=== PATIENT | male | born 1945 | race Caucasian/White ===

== ENCOUNTER 2016-11-19 | Outpatient (CLI) | END 2016-11-19 12:14 | disposition critical access hospital (66) | CPT/HCPCS: A0425; A0427 ==

== ENCOUNTER 2016-11-19 12:26 | Observation (INO) | payer MEDICARE, OTHER ==
[2016-11-19] MEDS ORDERED: ASPIRIN CHEW 81 MG TABLET PO STA (12:35)
[2016-11-19] MEDS ORDERED: ASPIRIN CHEW 81 MG TABLET ONE (12:40)
[2016-11-19] MEDS ORDERED: ONDANSETRON 4 MG/2 ML VIAL IVP STA (13:38)
[2016-11-19] MEDS ORDERED: ONDANSETRON 4 MG/2 ML VIAL ONE (13:42)
[2016-11-19] MEDS ORDERED: HYDROcod/ACETAM 5/325 MG TABLET PO PRN (14:54)
[2016-11-19] MEDS ORDERED: SODIUM CHLORIDE FLUSH 0.9% 10 ML SYRINGE IVP PRN (14:54)
[2016-11-19] MEDS ORDERED: ONDANSETRON 4 MG/2 ML VIAL IVP PRN (14:54)
[2016-11-19] MEDS ORDERED: HYDROcod/ACETAM 10 MG/325 MG TABLET PO PRN (14:54)
[2016-11-19] MEDS ORDERED: ACETAMINOPHEN 325 MG TABLET PO PRN (14:54)
[2016-11-19] MEDS ORDERED: NITROGLYCERIN SL 0.4 MG TABLET SL PRN (15:41)
[2016-11-19] MEDS: INSULIN ASPART 300 UNIT/3 ML PEN SUBQ SCH ×2 (16:59→20:49)
[2016-11-19] MEDS: INSULIN 70/30 HUMAN 100 UNIT/1 ML 10 ML MDV SUBQ SCH (16:59)
[2016-11-19] MEDS: CARVEDILOL 12.5 MG TABLET PO SCH (20:49)
[2016-11-19] MEDS: cloNIDine 0.1 MG TABLET PO SCH (20:49)
[2016-11-19] MEDS: SODIUM CHLORIDE FLUSH 0.9% 10 ML SYRINGE IVP SCH (20:50)
[2016-11-19] MEDS ORDERED: ATORVASTATIN 40 MG TABLET PO SCH (21:00)
[2016-11-20] MEDS: INSULIN 70/30 HUMAN 100 UNIT/1 ML 10 ML MDV SUBQ SCH (08:57)
[2016-11-20] MEDS ORDERED: hydroCHLOROthiazide 25 MG TABLET PO SCH (09:00)
[2016-11-20] MEDS ORDERED: POLYETHYLENE GLYCOL 3350 17 GM PACKET PO SCH (09:00)
[2016-11-20] MEDS ORDERED: ASPIRIN EC 81 MG TABLET PO SCH (09:00)
[2016-11-20] MEDS ORDERED: WARFARIN 5 MG TABLET PO SCH (09:00)
[2016-11-20] MEDS ORDERED: LOSARTAN 50 MG TABLET PO SCH (09:00)
[2016-11-20] MEDS: INSULIN ASPART 300 UNIT/3 ML PEN SUBQ SCH ×2 (09:18→13:02)
[2016-11-20] MEDS: CARVEDILOL 12.5 MG TABLET PO SCH (09:19)
[2016-11-20] MEDS: cloNIDine 0.1 MG TABLET PO SCH (09:20)
[2016-11-20] MEDS: SODIUM CHLORIDE FLUSH 0.9% 10 ML SYRINGE IVP SCH (13:02)
== END 2016-11-20 13:49 | disposition home or self-care (01) ==
DX: R55 Syncope and collapse (principal); I25.10 Atherosclerotic heart disease of native coronary artery without angina pectoris; I10 Essential (primary) hypertension; G89.29 Other chronic pain; R42 Dizziness and giddiness; I95.9 Hypotension, unspecified; E11.42 Type 2 diabetes mellitus with diabetic polyneuropathy; I25.2 Old myocardial infarction; Z79.4 Long term (current) use of insulin; Z79.01 Long term (current) use of anticoagulants; Z79.82 Long term (current) use of aspirin; Z87.891 Personal history of nicotine dependence; Z86.79 Personal history of other diseases of the circulatory system
CPT/HCPCS: 36415; 71020; 80053; 81003; 83036; 83690; 83880; 84484; 85025; 85610; 85730; 87275; 87276; 93005; 93010; 93306; 96374; 99283; 99285; A9270; G0378; J1815

== ENCOUNTER 2016-12-30 07:50 | Outpatient (CLI) | payer MEDICARE, OTHER | END 2016-12-30 07:51 | disposition home or self-care (01) | DX: E11.9 Type 2 diabetes mellitus without complications (principal) ==

== ENCOUNTER 2017-02-22 08:00 | Outpatient (CLI) | payer MEDICARE, OTHER | END 2017-02-22 08:01 | disposition home or self-care (01) | DX: I10 Essential (primary) hypertension (principal); I45.10 Unspecified right bundle-branch block; I48.0 Paroxysmal atrial fibrillation; Z79.01 Long term (current) use of anticoagulants; I47.2 Ventricular tachycardia ==

== ENCOUNTER 2017-03-06 08:00 | Outpatient (CLI) | payer MEDICARE, OTHER | END 2017-03-06 23:59 | disposition home or self-care (01) | DX: I10 Essential (primary) hypertension (principal); I45.10 Unspecified right bundle-branch block; I48.0 Paroxysmal atrial fibrillation; Z79.01 Long term (current) use of anticoagulants; I47.2 Ventricular tachycardia ==

== ENCOUNTER 2017-08-19 15:38 | Outpatient (CLI) | payer MEDICARE ==
[2017-08-19 13:52] LABS: ALBUMIN/GLOBULIN RATIO 1.1 (1.0-2.2); BILIRUBIN,TOTAL 0.4 mg/dL (0.2-1.0); BUN - BLOOD UREA NITROGEN 42 mg/dL (6-20); CARBON DIOXIDE - CO2 27 mmol/L (21-32); CHLORIDE 105 mmol/L (101-111); CHOL/HDL RATIO 3.3 (<5.0); CHOLESTEROL 122 mg/dL; CREATININE 1.6 mg/dL (0.6-1.2); GFR - MDRD 43 (>89); GLUCOSE 118 mg/dL (70-100); HDL CHOLESTEROL 37 mg/dL; LDL/HDL RATIO 1.8 (<3.6); POTASSIUM 5.2 mmol/L (3.5-5.0); SODIUM 137 mmol/L (135-145); TOTAL PROTEIN 7.2 g/dL (6.7-8.2); TRIGLYCERIDES 84 mg/dL; VLDL CHOLESTEROL 17 mg/dL
[2017-08-19 13:55] LABS: HEMOGLOBIN A1C 0.6 g/dL
== END 2017-08-19 15:39 | disposition home or self-care (01) ==
LOC: LAB.WCP 15:38
PROVIDERS: ATTEND Family Medicine
DX: Z79.01 Long term (current) use of anticoagulants (principal); E11.9 Type 2 diabetes mellitus without complications; N40.1 Benign prostatic hyperplasia with lower urinary tract symptoms; I48.91 Unspecified atrial fibrillation; I10 Essential (primary) hypertension
CPT/HCPCS: 36415; 80053; 80061; 82043; 83036; 84153

== ENCOUNTER 2017-08-31 12:53 | Outpatient (CLI) | payer MEDICARE ==
[2017-08-31 12:59] LABS: CALCIUM 8.8 mg/dL (8.5-10.3); CREATININE 1.7 mg/dL (0.6-1.2); POTASSIUM 4.8 mmol/L (3.5-5.0)
== END 2017-08-31 12:54 | disposition home or self-care (01) ==
LOC: LAB.WCP 12:53
PROVIDERS: ATTEND Family Medicine
DX: N18.9 Chronic kidney disease, unspecified (principal); E11.9 Type 2 diabetes mellitus without complications; I10 Essential (primary) hypertension
CPT/HCPCS: 36415; 80048

== ENCOUNTER 2017-11-17 07:13 | Outpatient (CLI) | payer MEDICARE, OTHER ==
[2017-11-17 13:07] LABS: CALCIUM 8.7 mg/dL (8.5-10.3); CREATININE 1.5 mg/dL (0.6-1.2)
[2017-11-17 13:48] LABS: HB2 TOTAL 12.4 g/dL; HEMOGLOBIN A1C 0.6 g/dL; HEMOGLOBIN A1C % 6.6 % (4.6-6.2)
== END 2017-11-17 07:14 | disposition home or self-care (01) ==
LOC: LAB.WCP 07:13
PROVIDERS: ATTEND Family Medicine
DX: I12.9 Hypertensive chronic kidney disease with stage 1 through stage 4 chronic kidney disease, or unspecified chronic kidney disease (principal); N18.9 Chronic kidney disease, unspecified; I47.2 Ventricular tachycardia; E11.9 Type 2 diabetes mellitus without complications; I25.10 Atherosclerotic heart disease of native coronary artery without angina pectoris; I48.91 Unspecified atrial fibrillation
CPT/HCPCS: 36415; 80048; 83036; 83735

== ENCOUNTER 2017-12-25 11:50 | Emergency (ER) | payer MEDICARE, OTHER ==
--- NOTE | 2017-12-25 12:54 | XRAY Report ---
EXAM: RIGHT WRIST RADIOGRAPHY EXAM DATE: 12/25/2017 12:20 PM. CLINICAL HISTORY: Right lateral wrist pain one day after fall. COMPARISON: None. TECHNIQUE: 4 views. FINDINGS: Bones: Normal. No fractures or bone lesions. Joints: Severe degenerative changes at the first carpometacarpal joint. Soft Tissues: Normal. No soft tissue swelling. IMPRESSION: 1. No fracture. 2. Severe degenerative changes at the first carpal metacarpal joint. [facility] Referring Provider Line: [phone] SITE ID: [id number]
--- NOTE | 2017-12-25 12:54 | XRAY Preliminary Report ---
Exam: XR WRIST 4 VIEW RT IMPRESSION: 1. No fracture. 2. Severe degenerative changes at the first carpal metacarpal joint. [facility] SITE ID: [id number]
--- NOTE | 2017-12-25 13:39 | ED Physician Documentation ---
PD HPI UPPER EXT INJURY - Stated complaint Stated Complaint: GLF/HAND&WRIST INJ - Chief complaint Chief Complaint: Ext Problem - History obtained from History obtained from: Patient - History of Present Illness Location: Right, Wrist, Hand Type of injury: Fall Where injury occurred: Home Timing - onset: Last night Timing - details: Abrupt onset, Still present Improved by: Rest Worsened by: Moving, Palpating Associated symptoms: Swelling (dorsal right wrist). 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.) Recently seen: Not recently seen Review of Systems Skin: denies: Abrasion (s), Laceration (s) Neurologic: denies: Focal weakness, Numbness, Confused, Altered mental status, Head injury PD PAST MEDICAL HISTORY - Past Medical History Cardiovascular: Hypertension, Atrial fibrillation Respiratory: Asthma, COPD, Emphysema Neuro: Peripheral neuropathy Endocrine/Autoimmune: Type 2 diabetes GI: None : None Psych: Depression, Anxiety Musculoskeletal: Osteoarthritis Derm: None - Past Surgical History Past Surgical History: No General: Cholecystectomy Ortho: Knee replacement, Shoulder arthroplasty Cardiovascular: Coronary stent - Present Medications Home Medications: Ambulatory Orders Medication Instructions Recorded Confirmed Hydrochlorothiazide 25 mg PO DAILY 01/18/14 11/19/16 Losartan [Cozaar] 100 mg PO DAILY 01/18/14 11/19/16 Prazosin HCl 5 mg PO DAILY 01/18/14 11/19/16 cloNIDine [Catapres] 0.2 mg PO BID 01/18/14 11/19/16 Aspirin [Aspirin EC] 81 mg PO DAILY 11/19/16 11/19/16 Atorvastatin Calcium 40 mg PO QPM 11/19/16 11/19/16 Carvedilol [Coreg] 12.5 mg PO BID 11/19/16 11/19/16 Insulin NPH Hum/Reg Insulin Hm 22 units SUBQ BIDAC 11/19/16 11/19/16 [Humulin 70/30 Kwikpen] Nitroglycerin [Nitrostat] 0.4 mg PO Q5M PRN 11/19/16 11/19/16 Warfarin Sodium 5 mg PO DAILY 11/19/16 11/19/16 HYDROcod/ACETAM 5/325 [[place] 5/325] 1 tab PO Q6H PRN #15 tablet 12/25/17 - Allergies Allergies/Adverse Reactions: Allergies Allergy/AdvReac Type Severity Reaction Status Date / Time codeine Allergy Intermediate Itching Verified 11/19/16 12:33 - Social History Does the pt smoke?: No Smoking Status: Never smoker Does the pt drink ETOH?: No Does the pt have substance abuse?: No - Immunizations Immunizations are current?: Yes PD ED PE NORMAL - Vitals Vital signs reviewed: Yes - General General: Alert and oriented X 3, No acute distress, Well developed/nourished - HEENT HEENT: Atraumatic - Neck Neck: Supple, no meningeal sign, No bony TTP - Cardiac Cardiac: RRR, No murmur - Respiratory Respiratory: Clear bilaterally, Other (no chestwall tenderness) - Abdomen Abdomen: Soft, Non tender - Back Back: No CVA TTP - Derm Derm: Normal color, Warm and dry - Extremities Extremities: No deformity. No: Normal ROM s pain (right wrist tender dorsally. Not focally tender in snuffbox. Base of thumb with some arthritic changes. No acute deformity. Good color and cap refill in fingers. ) - Neuro Neuro: Alert and oriented X 3, No motor deficit, No sensory deficit Results - Vitals Vitals: Oxygen O2 Source Room air - Labs Labs: Laboratory Tests 12/25/17 14:15 Whole Blood INR 3.1 H - Rads (name of study) wrist right Radiology: Prelim report reviewed (arthritic changes base of thumb and navicular. No noted fractures. ), EMP read contemporaneously PD MEDICAL DECISION MAKING - ED course Complexity details: considered differential (not focally tender at snuffbox but more dorsal wrist. However has irregularity on xray in navicular (looks arthritis). Will give splint with thumb spice as well. Recheck with PMD. ), d/w patient Departure - Departure Disposition: 01 Home, Self Care Clinical Impression: Accidental fall Qualifiers: Encounter type: initial encounter Qualified Code(s): W19.XXXA - Unspecified fall, initial encounter Wrist sprain Qualifiers: Encounter type: initial encounter Laterality: right Qualified Code(s): S63.501A - Unspecified sprain of right wrist, initial encounter Condition: Stable Record reviewed to determine appropriate education?: Yes Instructions: ED Splint Care Velcro, ED Sprain Wrist Follow-Up: Juan Jose Campuzano MD [Primary Care Provider] - Johan Melchor MD [Provider Admit Priv/Credential] - Prescriptions: HYDROcod/ACETAM 5/325 [[place] 5/325] 1 tab PO Q6H PRN #15 tablet PRN Reason: Pain Comments: Use a wrist splint when needed for comfort. He will likely need this for a week or so. Ice elevate and rest your wrist often. Use Tylenol if needed for mild pain. Add hydrocodone if needed for worse pain. Continue your other usual medications. Follow-up with your primary care or orthopedics if not better over about a week Discharge Date/Time: 12/25/17 14:37
[2017-12-25] MEDS ORDERED: HYDROcod/ACETAM 5/325 MG TABLET PO STA (13:59)
[2017-12-25 14:38] VITALS: BP 137/66
== END 2017-12-25 14:37 | disposition home or self-care (01) ==
LOC: ED 11:50
DX: S63.501A Unspecified sprain of right wrist, initial encounter (principal); W18.39XA Other fall on same level, initial encounter; Y92.019 Unspecified place in single-family (private) house as the place of occurrence of the external cause; I10 Essential (primary) hypertension; I48.91 Unspecified atrial fibrillation; J44.9 Chronic obstructive pulmonary disease, unspecified; E11.42 Type 2 diabetes mellitus with diabetic polyneuropathy; Z79.4 Long term (current) use of insulin; M19.90 Unspecified osteoarthritis, unspecified site; Z79.82 Long term (current) use of aspirin
CPT/HCPCS: 73110; 85610; 99283; A9270

== ENCOUNTER 2018-02-16 08:00 | Outpatient (CLI) | payer MEDICARE, OTHER ==
[2018-02-16 12:40] LABS: CALCIUM 8.9 mg/dL (8.5-10.3); CREATININE 1.5 mg/dL (0.6-1.2)
[2018-02-16 13:18] LABS: HB2 TOTAL 12.1 g/dL; HEMOGLOBIN A1C 0.54 g/dL; HEMOGLOBIN A1C % 6.2 % (4.6-6.2)
== END 2018-02-16 08:01 | disposition home or self-care (01) ==
LOC: LAB.WCP 08:00
PROVIDERS: ATTEND Family Medicine
DX: M51.36 Other intervertebral disc degeneration, lumbar region (principal); E11.9 Type 2 diabetes mellitus without complications; J06.9 Acute upper respiratory infection, unspecified; I10 Essential (primary) hypertension; I25.10 Atherosclerotic heart disease of native coronary artery without angina pectoris
CPT/HCPCS: 36415; 80048; 83036

== ENCOUNTER 2018-08-25 07:27 | Outpatient (CLI) | payer MEDICARE, OTHER ==
[2018-08-25 14:40] LABS: BASOPHILS % (AUTO) 0.4 %; EOSINOPHILS # (AUTO) 0.3 10^3/uL (0.0-0.7); EOSINOPHILS % (AUTO) 4.4 %; HGB - HEMOGLOBIN 11.7 g/dL (14.0-18.0); LYMPHOCYTES # (AUTO) 1.8 10^3/uL (1.5-3.5); LYMPHOCYTES % (AUTO) 24.8 %; MEAN CORPUSCULAR HEMOGLOBIN 30.1 pg (27.0-31.0); MEAN CORPUSCULAR HGB CONC 33.9 g/dL (32.0-36.0); MEAN CORPUSCULAR VOLUME 88.8 fL (80.0-94.0); MEAN PLATELET VOLUME 9.3 fL (7.4-11.4); MONOCYTES # (AUTO) 0.7 10^3/uL (0.0-1.0); MONOCYTES % (AUTO) 9.6 %; NEUTROPHILS # (AUTO) 4.4 10^3/uL (1.5-6.6); NEUTROPHILS % (AUTO) 60.8 %; PLT - PLATELET COUNT 194 10^3/uL (130-450); RED BLOOD COUNT 3.89 10^6/uL (4.70-6.10); WHITE BLOOD COUNT 7.2 x10^3/uL (4.8-10.8)
[2018-08-25 14:44] LABS: ALBUMIN 3.5 g/dL (3.2-5.5); ALKALINE PHOSPHATASE 66 IU/L (42-121); ALT ALANINE AMINOTRANSFERASE 18 IU/L (10-60); AST ASPARTATE AMINOTRANSFERASE 22 IU/L (10-42); BILIRUBIN,TOTAL 0.2 mg/dL (0.2-1.0); BUN - BLOOD UREA NITROGEN 29 mg/dL (6-20); CALCIUM 8.9 mg/dL (8.5-10.3); CARBON DIOXIDE - CO2 25 mmol/L (21-32); CHLORIDE 105 mmol/L (101-111); CHOL/HDL RATIO 2.8 (<5.0); CHOLESTEROL 102 mg/dL; CREATININE 1.4 mg/dL (0.6-1.2); GFR - MDRD 50 (>89); GLUCOSE 96 mg/dL (70-100); HDL CHOLESTEROL 37 mg/dL; LDL CHOLESTEROL,CALCULATED 52 mg/dL; LDL/HDL RATIO 1.4 (<3.6); SODIUM 138 mmol/L (135-145); VLDL CHOLESTEROL 13 mg/dL
[2018-08-25 16:21] LABS: HB2 TOTAL 12.1 g/dL; HEMOGLOBIN A1C 0.53 g/dL; HEMOGLOBIN A1C % 6.2 % (4.6-6.2)
== END 2018-08-25 07:28 | disposition home or self-care (01) ==
LOC: LAB.WCP 07:27
PROVIDERS: ATTEND Family Medicine
DX: I12.9 Hypertensive chronic kidney disease with stage 1 through stage 4 chronic kidney disease, or unspecified chronic kidney disease (principal); E11.22 Type 2 diabetes mellitus with diabetic chronic kidney disease; N18.9 Chronic kidney disease, unspecified; E78.5 Hyperlipidemia, unspecified
CPT/HCPCS: 36415; 80053; 80061; 83036; 83721; 85025

== ENCOUNTER 2018-09-01 13:56 | Outpatient (CLI) | payer MEDICARE, OTHER ==
[2018-09-01 19:03] LABS: % IRON SATURATION 16 % (20-50); IRON 43 ug/dL (45-182); TOTAL IRON BINDING CAPACITY 272 ug/dL (250-450); TRANSFERRIN 194 mg/dL (180-329)
== END 2018-09-01 13:57 | disposition home or self-care (01) ==
LOC: LAB.WCP 13:56
PROVIDERS: ATTEND Family Medicine
DX: D50.9 Iron deficiency anemia, unspecified (principal)
CPT/HCPCS: 36415; 82728; 83540; 84466

== ENCOUNTER 2018-12-07 08:00 | Outpatient (CLI) | payer MEDICARE, OTHER ==
[2018-12-07 13:57] LABS: BASOPHILS % (AUTO) 0.7 %; EOSINOPHILS # (AUTO) 0.2 10^3/uL (0.0-0.7); EOSINOPHILS % (AUTO) 3.2 %; HGB - HEMOGLOBIN 11.9 g/dL (14.0-18.0); LYMPHOCYTES # (AUTO) 1.6 10^3/uL (1.5-3.5); LYMPHOCYTES % (AUTO) 25.3 %; MEAN CORPUSCULAR HEMOGLOBIN 29.4 pg (27.0-31.0); MEAN CORPUSCULAR HGB CONC 33.7 g/dL (32.0-36.0); MEAN CORPUSCULAR VOLUME 87.3 fL (80.0-94.0); MEAN PLATELET VOLUME 9.3 fL (7.4-11.4); MONOCYTES # (AUTO) 0.5 10^3/uL (0.0-1.0); MONOCYTES % (AUTO) 7.8 %; PLT - PLATELET COUNT 215 10^3/uL (130-450); RED BLOOD COUNT 4.06 10^6/uL (4.70-6.10); RED CELL DISTRIBUTION WIDTH 14.8 % (12.0-15.0); WHITE BLOOD COUNT 6.4 x10^3/uL (4.8-10.8)
[2018-12-07 16:41] LABS: ALBUMIN 3.6 g/dL (3.2-5.5); ALBUMIN/GLOBULIN RATIO 1.1 (1.0-2.2); ALKALINE PHOSPHATASE 79 IU/L (42-121); ALT ALANINE AMINOTRANSFERASE 22 IU/L (10-60); AST ASPARTATE AMINOTRANSFERASE 25 IU/L (10-42); BILIRUBIN,TOTAL 0.2 mg/dL (0.2-1.0); BUN - BLOOD UREA NITROGEN 37 mg/dL (6-20); CALCIUM 8.9 mg/dL (8.5-10.3); CARBON DIOXIDE - CO2 24 mmol/L (21-32); CHLORIDE 104 mmol/L (101-111); CHOLESTEROL 105 mg/dL; CREATININE 1.3 mg/dL (0.6-1.2); GFR - MDRD 54 (>89); GLUCOSE 139 mg/dL (70-100); SODIUM 135 mmol/L (135-145); VLDL CHOLESTEROL 14 mg/dL
[2018-12-07 17:12] LABS: CHOL/HDL RATIO 2.8 (<5.0); HDL CHOLESTEROL 37 mg/dL; LDL CHOLESTEROL,CALCULATED 54 mg/dL; LDL/HDL RATIO 1.5 (<3.6)
[2018-12-07 19:57] LABS: HB2 TOTAL 12.3 g/dL; HEMOGLOBIN A1C 0.54 g/dL; HEMOGLOBIN A1C % 6.2 % (4.6-6.2)
== END 2018-12-07 23:59 | disposition home or self-care (01) ==
LOC: LAB.WCP 08:00
PROVIDERS: ATTEND Family Medicine
DX: D50.9 Iron deficiency anemia, unspecified (principal); E11.22 Type 2 diabetes mellitus with diabetic chronic kidney disease; I12.9 Hypertensive chronic kidney disease with stage 1 through stage 4 chronic kidney disease, or unspecified chronic kidney disease; N18.9 Chronic kidney disease, unspecified; E26.9 Hyperaldosteronism, unspecified
CPT/HCPCS: 36415; 80053; 80061; 83036; 83721; 84443; 85025

== ENCOUNTER 2019-05-01 07:21 | Outpatient (CLI) | payer MEDICARE, OTHER ==
[2019-05-01 12:28] LABS: BASOPHILS % (AUTO) 0.3 %; EOSINOPHILS # (AUTO) 0.5 10^3/uL (0.0-0.7); EOSINOPHILS % (AUTO) 7.9 %; LYMPHOCYTES # (AUTO) 2.1 10^3/uL (1.5-3.5); LYMPHOCYTES % (AUTO) 32.8 %; MEAN CORPUSCULAR HEMOGLOBIN 27.6 pg (27.0-31.0); MEAN PLATELET VOLUME 11.3 fL (7.4-11.4); MONOCYTES # (AUTO) 0.5 10^3/uL (0.0-1.0); MONOCYTES % (AUTO) 8.4 %; NEUTROPHILS # (AUTO) 3.2 10^3/uL (1.5-6.6); NEUTROPHILS % (AUTO) 50.1 %; PLT - PLATELET COUNT 197 10^3/uL (130-450); RED BLOOD COUNT 3.62 10^6/uL (4.70-6.10); WHITE BLOOD COUNT 6.3 x10^3/uL (4.8-10.8)
[2019-05-01 12:43] LABS: ALBUMIN 3.6 g/dL (3.2-5.5); BILIRUBIN,TOTAL 0.6 mg/dL (0.2-1.0); CALCIUM 8.8 mg/dL (8.5-10.3); CREATININE 1.4 mg/dL (0.6-1.2); TOTAL PROTEIN 7.1 g/dL (6.7-8.2)
[2019-05-01 12:47] LABS: CREATININE,URINE 125.5 mg/dL
[2019-05-01 12:50] LABS: HB2 TOTAL 10.4 g/dL; HEMOGLOBIN A1C 0.46 g/dL; HEMOGLOBIN A1C % 6.2 % (4.6-6.2)
[2019-05-01 12:57] LABS: MICROALBUMIN,URINE < 0.3 mg/dL (0-300.0)
== END 2019-05-01 07:22 | disposition home or self-care (01) ==
LOC: LAB.WCP 07:21
PROVIDERS: ATTEND Family Medicine
DX: I25.10 Atherosclerotic heart disease of native coronary artery without angina pectoris (principal); I48.91 Unspecified atrial fibrillation; E11.59 Type 2 diabetes mellitus with other circulatory complications; M17.12 Unilateral primary osteoarthritis, left knee
CPT/HCPCS: 36415; 80053; 82043; 82570; 83036; 85025

== ENCOUNTER 2019-06-01 08:00 | Outpatient (CLI) | payer MEDICARE, OTHER | END 2019-06-01 08:01 | disposition home or self-care (01) | LOC: LAB.WCP 08:00 | PROVIDERS: ATTEND Family Medicine | DX: I48.91 Unspecified atrial fibrillation (principal); Z79.01 Long term (current) use of anticoagulants; Z53.9 Procedure and treatment not carried out, unspecified reason ==

== ENCOUNTER 2019-07-02 08:00 | Outpatient (CLI) | payer MEDICARE, OTHER | END 2019-07-02 23:59 | disposition home or self-care (01) | LOC: LAB.WCP 08:00 | PROVIDERS: ATTEND Family Medicine | DX: I48.91 Unspecified atrial fibrillation (principal); Z79.01 Long term (current) use of anticoagulants ==

== ENCOUNTER 2019-08-27 08:00 | Outpatient (CLI) | payer MEDICARE, OTHER | END 2019-08-27 23:59 | disposition home or self-care (01) | LOC: LAB.WCP 08:00 | PROVIDERS: ATTEND Physician Assistant | DX: Z79.01 Long term (current) use of anticoagulants (principal); I48.91 Unspecified atrial fibrillation ==

== ENCOUNTER 2019-10-05 08:00 | Outpatient (CLI) | payer MEDICARE, OTHER | END 2019-10-05 23:59 | disposition home or self-care (01) | LOC: LAB.WCP 08:00 | PROVIDERS: ATTEND Family Medicine | DX: Z79.01 Long term (current) use of anticoagulants (principal); I48.91 Unspecified atrial fibrillation ==

== ENCOUNTER 2019-10-25 07:30 | Outpatient (CLI) | payer MEDICARE, OTHER ==
[2019-10-25 12:59] LABS: BASOPHILS % (AUTO) 0.3 %; EOSINOPHILS # (AUTO) 0.4 10^3/uL (0.0-0.7); EOSINOPHILS % (AUTO) 5.8 %; HGB - HEMOGLOBIN 11.4 g/dL (14.0-18.0); LYMPHOCYTES # (AUTO) 1.6 10^3/uL (1.5-3.5); LYMPHOCYTES % (AUTO) 24.4 %; MEAN CORPUSCULAR HEMOGLOBIN 28.4 pg (27.0-31.0); MEAN CORPUSCULAR HGB CONC 30.8 g/dL (32.0-36.0); MEAN CORPUSCULAR VOLUME 92.3 fL (80.0-94.0); MEAN PLATELET VOLUME 10.9 fL (7.4-11.4); MONOCYTES # (AUTO) 0.5 10^3/uL (0.0-1.0); MONOCYTES % (AUTO) 8.5 %; NEUTROPHILS # (AUTO) 3.8 10^3/uL (1.5-6.6); NEUTROPHILS % (AUTO) 60.7 %; PLT - PLATELET COUNT 223 10^3/uL (130-450); RED BLOOD COUNT 4.01 10^6/uL (4.70-6.10); RED CELL DISTRIBUTION WIDTH 13.9 % (12.0-15.0); WHITE BLOOD COUNT 6.3 x10^3/uL (4.8-10.8)
[2019-10-25 13:19] LABS: ALBUMIN 3.8 g/dL (3.2-5.5); ALBUMIN/GLOBULIN RATIO 1.1 (1.0-2.2); BILIRUBIN,TOTAL 0.7 mg/dL (0.2-1.0); CALCIUM 9.2 mg/dL (8.5-10.3); CREATININE 1.6 mg/dL (0.6-1.2); TOTAL PROTEIN 7.4 g/dL (6.7-8.2)
[2019-10-25 13:50] LABS: HB2 TOTAL 11.3 g/dL; HEMOGLOBIN A1C 0.56 g/dL; HEMOGLOBIN A1C % 6.7 % (4.6-6.2)
[2019-10-25 19:22] LABS: CREATININE,URINE 229.1 mg/dL; MICROALBUM/CREATININE RATIO,UR 2.2 ug/mg (<30.0); MICROALBUMIN,URINE 0.5 mg/dL (0-300.0)
== END 2019-10-25 23:59 | disposition home or self-care (01) ==
LOC: LAB.WCP 07:30
PROVIDERS: ATTEND Family Medicine
DX: I25.10 Atherosclerotic heart disease of native coronary artery without angina pectoris (principal); I48.91 Unspecified atrial fibrillation; E11.9 Type 2 diabetes mellitus without complications
CPT/HCPCS: 36415; 80053; 82043; 82570; 83036; 84443; 85025

== ENCOUNTER 2019-10-31 08:00 | Outpatient (CLI) | payer MEDICARE, OTHER | END 2019-10-31 23:59 | disposition home or self-care (01) | LOC: LAB.WCP 08:00 | PROVIDERS: ATTEND Family Medicine | DX: Z79.01 Long term (current) use of anticoagulants (principal); I48.91 Unspecified atrial fibrillation ==

== ENCOUNTER 2019-11-23 08:00 | Outpatient (CLI) | payer MEDICARE, OTHER ==
[2019-11-23 19:04] LABS: BASOPHILS % (AUTO) 0.4 %; EOSINOPHILS # (AUTO) 0.3 10^3/uL (0.0-0.7); EOSINOPHILS % (AUTO) 5.2 %; HGB - HEMOGLOBIN 11.1 g/dL (14.0-18.0); LYMPHOCYTES # (AUTO) 1.5 10^3/uL (1.5-3.5); LYMPHOCYTES % (AUTO) 29.5 %; MEAN CORPUSCULAR HEMOGLOBIN 28.9 pg (27.0-31.0); MEAN CORPUSCULAR HGB CONC 31.4 g/dL (32.0-36.0); MEAN CORPUSCULAR VOLUME 92.2 fL (80.0-94.0); MEAN PLATELET VOLUME 11.3 fL (7.4-11.4); MONOCYTES # (AUTO) 0.5 10^3/uL (0.0-1.0); MONOCYTES % (AUTO) 10.2 %; NEUTROPHILS # (AUTO) 2.7 10^3/uL (1.5-6.6); NEUTROPHILS % (AUTO) 54.5 %; PLT - PLATELET COUNT 212 10^3/uL (130-450); RED BLOOD COUNT 3.84 10^6/uL (4.70-6.10); RED CELL DISTRIBUTION WIDTH 13.9 % (12.0-15.0)
[2019-11-23 19:39] LABS: CRP - C-REACTIVE PROTEIN < 1.0 mg/dL (0-1.0); URIC ACID 6.2 mg/dL (2.6-7.2)
[2019-11-23 20:06] LABS: RHEUMATOID FACTOR NEGATIVE (Negative)
[2019-11-27 10:44] LABS: ANA SCREEN NEGATIVE (NEGATIVE)
== END 2019-11-23 23:59 ==
LOC: LAB.WC 08:00
PROVIDERS: ATTEND Family Medicine
DX: M19.041 Primary osteoarthritis, right hand (principal); M19.042 Primary osteoarthritis, left hand
CPT/HCPCS: 36415; 84550; 85025; 85651; 86038; 86140; 86200; 86430

== ENCOUNTER 2019-11-23 10:56 | Outpatient (CLI) | payer MEDICARE, OTHER ==
--- NOTE | 2019-11-23 13:38 | XRAY Report ---
Reason: BILATERAL HAND ARTHRITIS Procedure Date: 11/23/2019 Accession Number: [id number] / [id number] Procedure: WCP - Hand 2 View BILAT CPT Code: Final Report FULL RESULT: EXAMS: 1. Right Hand Radiography 2. Left Hand Radiography EXAM DATE: 11/23/2019 10:56 AM. CLINICAL HISTORY: BILATERAL HAND ARTHRITIS. COMPARISON: WRIST 4 VIEW RT 12/25/2017 12:09 PM. TECHNIQUE: 2 views each hand. FINDINGS: Right: Bones: Normal. No fractures or bone lesions. Joints: First metacarpal carpal osteophyte, joint space narrowing, subchondral sclerosis, subchondral cystic changes. First MCP osteophyte, disk space narrowing. First interphalangeal joint osteophyte, joint space narrowing. Second MCP appears subluxed with bony overgrowth of the second metacarpal head. Third metacarpophalangeal joint osteophyte, joint space narrowing. Soft Tissues: Normal. No soft tissue swelling. Left: Bones: Lucency and third distal phalanx tuft may be from previous trauma. No fractures or bone lesions. Joints: Severe degenerative changes of first metacarpocarpal joint with joint space loss osteophyte, subchondral sclerosis, subchondral cysts, loose bodies. Degenerative changes first MCP with osteophyte, joint space narrowing. First interphalangeal osteophyte, joint space narrowing. Second MCP joint space narrowing, bony overgrowth, subluxation. Third MCP osteophyte, joint space narrowing. Fourth PIP osteophyte. Soft Tissues: Normal. No soft tissue swelling. IMPRESSION: Moderate to severe osteoarthritic changes bilaterally detailed above [facility]
== END 2019-11-23 23:59 | disposition home or self-care (01) ==
LOC: DI.WCP 10:56
PROVIDERS: ATTEND Family Medicine
DX: M18.0 Bilateral primary osteoarthritis of first carpometacarpal joints (principal); M19.041 Primary osteoarthritis, right hand; M19.042 Primary osteoarthritis, left hand

== ENCOUNTER 2019-11-29 08:00 | Outpatient (CLI) | payer MEDICARE, OTHER | END 2019-11-29 23:59 | disposition home or self-care (01) | LOC: LAB.WCP 08:00 | PROVIDERS: ATTEND Family Medicine | DX: Z79.01 Long term (current) use of anticoagulants (principal); I48.91 Unspecified atrial fibrillation ==

== ENCOUNTER 2019-12-27 08:00 | Outpatient (CLI) | payer MEDICARE, OTHER | END 2019-12-27 23:59 | disposition home or self-care (01) | LOC: LAB.WCP 08:00 | PROVIDERS: ATTEND Family Medicine | DX: I48.91 Unspecified atrial fibrillation (principal); Z79.01 Long term (current) use of anticoagulants ==

== ENCOUNTER 2020-01-24 08:00 | Outpatient (CLI) | payer MEDICARE, OTHER | END 2020-01-24 23:59 | disposition home or self-care (01) | LOC: LAB.WCP 08:00 | PROVIDERS: ATTEND Family Medicine | DX: I48.91 Unspecified atrial fibrillation (principal); Z79.01 Long term (current) use of anticoagulants ==

== ENCOUNTER 2020-02-12 08:00 | Outpatient (CLI) | payer MEDICARE, OTHER | END 2020-02-12 23:59 | disposition home or self-care (01) | LOC: LAB.WCP 08:00 | PROVIDERS: ATTEND Family Medicine | DX: I48.91 Unspecified atrial fibrillation (principal) ==

== ENCOUNTER 2020-03-18 08:00 | Outpatient (CLI) | payer MEDICARE, OTHER | END 2020-03-18 23:59 | disposition home or self-care (01) | LOC: LAB.WCP 08:00 | PROVIDERS: ATTEND Family Medicine | DX: I48.91 Unspecified atrial fibrillation (principal); Z79.01 Long term (current) use of anticoagulants ==

== ENCOUNTER 2020-04-01 08:00 | Outpatient (CLI) | payer MEDICARE, OTHER | END 2020-04-01 23:59 | disposition home or self-care (01) | LOC: LAB.WCP 08:00 | PROVIDERS: ATTEND Family Medicine | DX: I48.91 Unspecified atrial fibrillation (principal); Z79.01 Long term (current) use of anticoagulants ==

== ENCOUNTER 2020-04-22 08:00 | Outpatient (CLI) | payer MEDICARE, OTHER | END 2020-04-22 23:59 | disposition home or self-care (01) | LOC: LAB.WCP 08:00 | PROVIDERS: ATTEND Family Medicine | DX: I48.91 Unspecified atrial fibrillation (principal); Z79.01 Long term (current) use of anticoagulants ==

== ENCOUNTER 2020-04-24 08:00 | Outpatient (CLI) | payer MEDICARE, OTHER ==
[2020-04-24 11:52] LABS: BASOPHILS % (AUTO) 0.3 %; EOSINOPHILS # (AUTO) 0.4 10^3/uL (0.0-0.7); EOSINOPHILS % (AUTO) 5.4 %; HGB - HEMOGLOBIN 11.1 g/dL (14.0-18.0); LYMPHOCYTES # (AUTO) 1.9 10^3/uL (1.5-3.5); LYMPHOCYTES % (AUTO) 26.3 %; MEAN CORPUSCULAR HEMOGLOBIN 27.3 pg (27.0-31.0); MEAN CORPUSCULAR HGB CONC 29.9 g/dL (32.0-36.0); MEAN CORPUSCULAR VOLUME 91.2 fL (80.0-94.0); MEAN PLATELET VOLUME 11.2 fL (7.4-11.4); MONOCYTES # (AUTO) 0.7 10^3/uL (0.0-1.0); MONOCYTES % (AUTO) 9.1 %; NEUTROPHILS # (AUTO) 4.2 10^3/uL (1.5-6.6); NEUTROPHILS % (AUTO) 58.3 %; PLT - PLATELET COUNT 187 10^3/uL (130-450); RED BLOOD COUNT 4.07 10^6/uL (4.70-6.10); RED CELL DISTRIBUTION WIDTH 14.6 % (12.0-15.0); WHITE BLOOD COUNT 7.2 x10^3/uL (4.8-10.8)
[2020-04-24 12:05] LABS: ALBUMIN 3.7 g/dL (3.2-5.5); ALKALINE PHOSPHATASE 67 IU/L (42-121); ALT ALANINE AMINOTRANSFERASE 24 IU/L (10-60); AST ASPARTATE AMINOTRANSFERASE 21 IU/L (10-42); BILIRUBIN,TOTAL 0.2 mg/dL (0.2-1.0); BUN - BLOOD UREA NITROGEN 35 mg/dL (6-20); CALCIUM 9.1 mg/dL (8.5-10.3); CARBON DIOXIDE - CO2 23 mmol/L (21-32); CHLORIDE 107 mmol/L (101-111); CHOLESTEROL 113 mg/dL; CREATININE 1.5 mg/dL (0.6-1.2); GLUCOSE 126 mg/dL (70-100); HDL CHOLESTEROL 38 mg/dL; LDL CHOLESTEROL,CALCULATED 58 mg/dL; LDL/HDL RATIO 1.5 (<3.6); SODIUM 137 mmol/L (135-145); TOTAL PROTEIN 7.3 g/dL (6.7-8.2); VLDL CHOLESTEROL 17 mg/dL
[2020-04-24 12:06] LABS: HB2 TOTAL 11.8 g/dL; HEMOGLOBIN A1C 0.55 g/dL; HEMOGLOBIN A1C % 6.4 % (4.6-6.2)
[2020-04-24 12:28] LABS: CREATININE,URINE 143.4 mg/dL
[2020-04-24 12:29] LABS: MICROALBUMIN,URINE < 0.2 mg/dL (0-300.0)
== END 2020-04-24 23:59 | disposition home or self-care (01) ==
LOC: LAB.WCP 08:00
PROVIDERS: ATTEND Family Medicine
DX: E11.22 Type 2 diabetes mellitus with diabetic chronic kidney disease (principal); N18.3 Chronic kidney disease, stage 3 (moderate); I25.10 Atherosclerotic heart disease of native coronary artery without angina pectoris; E26.9 Hyperaldosteronism, unspecified; I48.91 Unspecified atrial fibrillation
CPT/HCPCS: 36415; 80053; 80061; 82043; 82570; 83036; 83721; 84443; 85025

== ENCOUNTER 2020-05-20 10:04 | Outpatient (CLI) | payer MEDICARE, OTHER ==
[2020-05-20 12:58] LABS: CREATININE 1.8 mg/dL (0.6-1.2)
== END 2020-05-20 23:59 | disposition home or self-care (01) ==
LOC: LAB.WCP 10:04
PROVIDERS: ATTEND Family Medicine
DX: I10 Essential (primary) hypertension (principal); I48.91 Unspecified atrial fibrillation; Z79.01 Long term (current) use of anticoagulants
CPT/HCPCS: 36415; 80048

== ENCOUNTER 2020-05-26 07:07 | Outpatient (CLI) | payer MEDICARE, OTHER ==
[2020-05-26 13:02] LABS: CALCIUM 8.8 mg/dL (8.5-10.3); CREATININE 1.4 mg/dL (0.6-1.2)
== END 2020-05-26 23:59 | disposition home or self-care (01) ==
LOC: LAB.WCP 07:07
PROVIDERS: ATTEND Family Medicine
DX: I10 Essential (primary) hypertension (principal); E87.5 Hyperkalemia
CPT/HCPCS: 36415; 80048

== ENCOUNTER 2020-06-17 08:00 | Outpatient (CLI) | payer MEDICARE, OTHER | END 2020-06-17 23:59 | disposition home or self-care (01) | LOC: LAB.WCP 08:00 | PROVIDERS: ATTEND Family Medicine | DX: I48.91 Unspecified atrial fibrillation (principal); Z79.01 Long term (current) use of anticoagulants ==

== ENCOUNTER 2020-07-08 08:00 | Outpatient (CLI) | payer MEDICARE, OTHER | END 2020-07-08 23:59 | disposition home or self-care (01) | LOC: LAB.WCP 08:00 | PROVIDERS: ATTEND Physician Assistant Medical | DX: I48.91 Unspecified atrial fibrillation (principal); Z79.01 Long term (current) use of anticoagulants ==

== ENCOUNTER 2020-07-22 08:00 | Outpatient (CLI) | payer MEDICARE, OTHER | END 2020-07-22 23:59 | disposition home or self-care (01) | LOC: LAB.WCP 08:00 | PROVIDERS: ATTEND Family Medicine | DX: I48.91 Unspecified atrial fibrillation (principal); Z79.01 Long term (current) use of anticoagulants ==

== ENCOUNTER 2020-08-12 08:00 | Outpatient (CLI) | payer MEDICARE, OTHER | END 2020-08-12 23:59 | disposition home or self-care (01) | LOC: LAB.WCP 08:00 | PROVIDERS: ATTEND Family Medicine | DX: Z79.01 Long term (current) use of anticoagulants (principal) ==

== ENCOUNTER 2020-09-02 08:00 | Outpatient (CLI) | payer MEDICARE, OTHER | END 2020-09-02 23:59 | disposition home or self-care (01) | LOC: LAB.WCP 08:00 | PROVIDERS: ATTEND Family Medicine | DX: Z79.01 Long term (current) use of anticoagulants (principal) ==

== ENCOUNTER 2020-09-11 08:00 | Outpatient (CLI) | payer MEDICARE, OTHER ==
[2020-09-11 12:07] LABS: BASOPHILS % (AUTO) 0.3 %; EOSINOPHILS # (AUTO) 0.4 10^3/uL (0.0-0.7); EOSINOPHILS % (AUTO) 5.4 %; HGB - HEMOGLOBIN 11.7 g/dL (14.0-18.0); LYMPHOCYTES # (AUTO) 1.7 10^3/uL (1.5-3.5); LYMPHOCYTES % (AUTO) 23.9 %; MEAN CORPUSCULAR HEMOGLOBIN 27.7 pg (27.0-31.0); MEAN CORPUSCULAR HGB CONC 30.9 g/dL (32.0-36.0); MEAN CORPUSCULAR VOLUME 89.8 fL (80.0-94.0); MEAN PLATELET VOLUME 11.3 fL (7.4-11.4); MONOCYTES # (AUTO) 0.6 10^3/uL (0.0-1.0); MONOCYTES % (AUTO) 7.9 %; NEUTROPHILS # (AUTO) 4.4 10^3/uL (1.5-6.6); NEUTROPHILS % (AUTO) 62.2 %; PLT - PLATELET COUNT 219 10^3/uL (130-450); RED BLOOD COUNT 4.22 10^6/uL (4.70-6.10); RED CELL DISTRIBUTION WIDTH 14.4 % (12.0-15.0); WHITE BLOOD COUNT 7.1 x10^3/uL (4.8-10.8)
[2020-09-11 13:34] LABS: CREATININE,URINE 116.3 mg/dL
[2020-09-11 14:05] LABS: ALBUMIN 3.6 g/dL (3.2-5.5); ALBUMIN/GLOBULIN RATIO 1.2 (1.0-2.2); ALKALINE PHOSPHATASE 79 IU/L (42-121); ALT ALANINE AMINOTRANSFERASE 23 IU/L (10-60); AST ASPARTATE AMINOTRANSFERASE 22 IU/L (10-42); BILIRUBIN,TOTAL 0.6 mg/dL (0.2-1.0); BUN - BLOOD UREA NITROGEN 30 mg/dL (6-20); CALCIUM 8.9 mg/dL (8.5-10.3); CARBON DIOXIDE - CO2 25 mmol/L (21-32); CHLORIDE 105 mmol/L (101-111); CHOL/HDL RATIO 3.2 (<5.0); CHOLESTEROL 105 mg/dL; CREATININE 1.4 mg/dL (0.6-1.2); GLUCOSE 139 mg/dL (70-100); HDL CHOLESTEROL 33 mg/dL; LDL CHOLESTEROL,CALCULATED 55 mg/dL; LDL/HDL RATIO 1.7 (<3.6); SODIUM 138 mmol/L (135-145); TOTAL PROTEIN 6.7 g/dL (6.7-8.2); VLDL CHOLESTEROL 17 mg/dL
[2020-09-11 14:10] LABS: HEMOGLOBIN A1c% 7.1 % (4.27-6.07)
[2020-09-11 14:13] LABS: MICROALBUMIN,URINE < 0.2 mg/dL (0-300.0)
== END 2020-09-11 23:59 ==
LOC: LAB.WCP 08:00
PROVIDERS: ATTEND Family Medicine
DX: E87.5 Hyperkalemia (principal); N18.30 Chronic kidney disease, stage 3 unspecified; N40.1 Benign prostatic hyperplasia with lower urinary tract symptoms; D50.9 Iron deficiency anemia, unspecified; E11.42 Type 2 diabetes mellitus with diabetic polyneuropathy; E11.22 Type 2 diabetes mellitus with diabetic chronic kidney disease; I12.9 Hypertensive chronic kidney disease with stage 1 through stage 4 chronic kidney disease, or unspecified chronic kidney disease
CPT/HCPCS: 36415; 80053; 80061; 82043; 82570; 83036; 83721; 84153; 84443; 85025

== ENCOUNTER 2020-10-13 14:18 | Outpatient (CLI) | payer MEDICARE, OTHER | END 2020-10-13 23:59 | disposition home or self-care (01) | LOC: LAB.R 14:18 | PROVIDERS: ATTEND Family Medicine | DX: L03.115 Cellulitis of right lower limb (principal) | CPT/HCPCS: 87070; 87205 ==

== ENCOUNTER 2020-10-20 08:00 | Outpatient (CLI) | payer MEDICARE, OTHER | END 2020-10-20 23:59 | disposition home or self-care (01) | LOC: LAB.WCP 08:00 | PROVIDERS: ATTEND Internal Medicine | DX: Z79.01 Long term (current) use of anticoagulants (principal) ==

== ENCOUNTER 2020-10-27 08:00 | Outpatient (CLI) | payer MEDICARE, OTHER | END 2020-10-27 23:59 | disposition home or self-care (01) | LOC: LAB.WCP 08:00 | PROVIDERS: ATTEND Internal Medicine | DX: Z79.01 Long term (current) use of anticoagulants (principal) ==

== ENCOUNTER 2021-01-05 08:00 | Outpatient (CLI) | payer MEDICARE, OTHER | END 2021-01-05 23:59 | disposition home or self-care (01) | LOC: LAB.WCP 08:00 | PROVIDERS: ATTEND Internal Medicine | DX: Z79.01 Long term (current) use of anticoagulants (principal); I48.91 Unspecified atrial fibrillation ==

== ENCOUNTER 2021-02-02 08:00 | Outpatient (CLI) | payer MEDICARE, OTHER | END 2021-02-02 23:59 | disposition home or self-care (01) | LOC: LAB.WCP 08:00 | PROVIDERS: ATTEND Internal Medicine | DX: I48.91 Unspecified atrial fibrillation (principal); Z79.01 Long term (current) use of anticoagulants ==

== ENCOUNTER 2021-03-02 08:00 | Outpatient (CLI) | payer MEDICARE, OTHER | END 2021-03-02 23:59 | disposition home or self-care (01) | LOC: LAB.WCP 08:00 | PROVIDERS: ATTEND Internal Medicine | DX: I48.91 Unspecified atrial fibrillation (principal); Z79.01 Long term (current) use of anticoagulants ==

== ENCOUNTER 2021-03-23 08:00 | Outpatient (CLI) | payer MEDICARE, OTHER | END 2021-03-23 23:59 | disposition home or self-care (01) | LOC: LAB.WCP 08:00 | PROVIDERS: ATTEND Internal Medicine | DX: Z79.01 Long term (current) use of anticoagulants (principal); I48.91 Unspecified atrial fibrillation ==

== ENCOUNTER 2021-04-20 08:00 | Outpatient (CLI) | payer MEDICARE, OTHER | END 2021-04-20 23:59 | disposition home or self-care (01) | LOC: LAB.WCP 08:00 | PROVIDERS: ATTEND Internal Medicine | DX: I48.91 Unspecified atrial fibrillation (principal); Z79.01 Long term (current) use of anticoagulants ==

== ENCOUNTER 2021-05-25 08:00 | Outpatient (CLI) | payer MEDICARE, OTHER | END 2021-05-25 23:59 | disposition home or self-care (01) | LOC: LAB.WCP 08:00 | PROVIDERS: ATTEND Family Medicine | DX: I48.91 Unspecified atrial fibrillation (principal); Z79.01 Long term (current) use of anticoagulants ==

== ENCOUNTER 2021-06-22 08:00 | Outpatient (CLI) | payer MEDICARE, OTHER | END 2021-06-22 23:59 | disposition home or self-care (01) | LOC: LAB.WCP 08:00 | PROVIDERS: ATTEND Internal Medicine | DX: I48.91 Unspecified atrial fibrillation (principal); Z79.01 Long term (current) use of anticoagulants ==

== ENCOUNTER 2021-07-22 08:00 | Outpatient (CLI) | payer MEDICARE, OTHER | END 2021-07-22 23:59 | disposition home or self-care (01) | LOC: LAB.WCP 08:00 | PROVIDERS: ATTEND Internal Medicine | DX: I48.91 Unspecified atrial fibrillation (principal); Z79.01 Long term (current) use of anticoagulants ==

== ENCOUNTER 2021-08-10 08:00 | Outpatient (CLI) | payer MEDICARE, OTHER | END 2021-08-10 23:59 | disposition home or self-care (01) | LOC: LAB.WCP 08:00 | PROVIDERS: ATTEND Internal Medicine | DX: I48.91 Unspecified atrial fibrillation (principal); Z79.01 Long term (current) use of anticoagulants ==

== ENCOUNTER 2021-09-07 07:17 | Outpatient (CLI) | payer MEDICARE, OTHER ==
[2021-09-07 08:00] LABS: BASOPHILS % (AUTO) 0.3 %; EOSINOPHILS # (AUTO) 0.3 10^3/uL (0.0-0.7); EOSINOPHILS % (AUTO) 4.6 %; HCT - HEMATOCRIT 38.3 % (42.0-52.0); HGB - HEMOGLOBIN 12.4 g/dL (14.0-18.0); LYMPHOCYTES # (AUTO) 1.8 10^3/uL (1.5-3.5); LYMPHOCYTES % (AUTO) 27.2 %; MEAN CORPUSCULAR HEMOGLOBIN 29.8 pg (27.0-31.0); MEAN CORPUSCULAR HGB CONC 32.4 g/dL (32.0-36.0); MEAN CORPUSCULAR VOLUME 92.1 fL (80.0-94.0); MEAN PLATELET VOLUME 10.9 fL (7.4-11.4); MONOCYTES # (AUTO) 0.5 10^3/uL (0.0-1.0); MONOCYTES % (AUTO) 7.5 %; NEUTROPHILS # (AUTO) 3.9 10^3/uL (1.5-6.6); NEUTROPHILS % (AUTO) 59.9 %; PLT - PLATELET COUNT 178 10^3/uL (130-450); RED BLOOD COUNT 4.16 10^6/uL (4.70-6.10); RED CELL DISTRIBUTION WIDTH 14.1 % (12.0-15.0); WHITE BLOOD COUNT 6.6 x10^3/uL (4.8-10.8)
[2021-09-07 08:01] LABS: ALBUMIN 3.7 g/dL (3.2-5.5); ALBUMIN/GLOBULIN RATIO 1.1 (1.0-2.2); BILIRUBIN,TOTAL 0.9 mg/dL (0.2-1.0); CREATININE 1.4 mg/dL (0.6-1.2); POTASSIUM 4.6 mmol/L (3.5-5.0); TOTAL PROTEIN 7.1 g/dL (6.7-8.2)
[2021-09-07 08:04] LABS: CREATININE,URINE 150.6 mg/dL; MICROALBUM/CREATININE RATIO,UR 1.3 ug/mg (<30.0); MICROALBUMIN,URINE 0.2 mg/dL (0-300.0)
[2021-09-07 08:19] LABS: THYROID STIMULATING HORMONE 2.48 uIU/mL (0.34-5.60)
[2021-09-07 13:28] LABS: ESTIMATED AVERAGE GLUCOSE 160 mg/dL (70-100); HEMOGLOBIN A1c% 7.2 % (4.27-6.07)
== END 2021-09-07 07:18 | disposition home or self-care (01) ==
LOC: LAB 07:17
PROVIDERS: ATTEND Internal Medicine
DX: I10 Essential (primary) hypertension (principal); I25.10 Atherosclerotic heart disease of native coronary artery without angina pectoris; E11.9 Type 2 diabetes mellitus without complications
CPT/HCPCS: 36415; 80048; 80053; 82043; 82570; 83036; 84443; 85025

== ENCOUNTER 2021-10-05 11:22 | Outpatient (CLI) | payer MEDICARE, OTHER ==
--- NOTE | 2021-10-05 14:00 | XRAY Report ---
PROCEDURE: Hand 3 View RT INDICATIONS: CONTUSION OF R HAND TECHNIQUE: Right views of the hand(s) acquired. COMPARISON: April 27, 2020 FINDINGS: BONES: No acute, displaced fracture or dislocation. The carpal bones are normally aligned. Redemonstrated advanced arthrosis at the first carpometacarpal articulation. Advanced joint space narrowing of the second and third MCP joint. Second metatarsal head juxtaarticul ar lucency, which may reflect an erosion. Narrowing of the radiocarpal articulation. SOFT TISSUES: No focal abnormality. IMPRESSION: 1.No significant interval change. Reviewed by: Paulino Haney MD on 10/05/2021 1:58 PM PST Approved by: Paulino Haney MD on 10/05/2021 1:58 PM [facility] Station ID: [id number]
== END 2021-10-05 23:59 | disposition home or self-care (01) ==
LOC: DI.N 11:22
PROVIDERS: ATTEND Physician Assistant Medical
DX: S60.221D Contusion of right hand, subsequent encounter (principal); M19.041 Primary osteoarthritis, right hand

== ENCOUNTER 2021-10-12 08:00 | Outpatient (CLI) | payer MEDICARE, OTHER | END 2021-10-12 23:59 | disposition home or self-care (01) | LOC: LAB.WCP 08:00 | PROVIDERS: ATTEND Internal Medicine | DX: I48.0 Paroxysmal atrial fibrillation (principal); Z79.01 Long term (current) use of anticoagulants ==

== ENCOUNTER 2021-10-21 10:57 | Outpatient (CLI) | payer MEDICARE, OTHER ==
--- NOTE | 2021-10-21 11:50 | XRAY Report ---
PROCEDURE: Hand 3 View RT INDICATIONS: CONTUSION OF R HAND TECHNIQUE: 3 views of the hand(s) acquired. COMPARISON: 10/05/2021 FINDINGS: Bones: No fractures or dislocations. Osteoarthritic changes are again seen throughout right hand and wrist joints most prominent involving first CMC joint, second and third MCP joints. Possible erosion involving second metacarpal head is again seen and unchanged. No suspicious bony lesions. Soft tissues: No suspicious soft tissue calcifications. IMPRESSION: Osteoarthritic changes throughout right hand and wrist joints. No gross acute fracture or dislocation . No significant changes from prior study. Reviewed by: Harry Hernandez MD on 10/21/2021 11:49 AM PST Approved by: Harry Hernandez MD on 10/21/2021 11:49 AM PST Station ID: [id number]
== END 2021-10-21 23:59 | disposition home or self-care (01) ==
LOC: DI.N 10:57
PROVIDERS: ATTEND Physician Assistant
DX: S60.221A Contusion of right hand, initial encounter (principal); M19.041 Primary osteoarthritis, right hand

== ENCOUNTER 2022-01-07 07:21 | Outpatient (CLI) | payer MEDICARE, OTHER ==
[2022-01-07 08:04] LABS: ALBUMIN 3.5 g/dL (3.2-5.5); ALKALINE PHOSPHATASE 69 IU/L (42-121); ALT ALANINE AMINOTRANSFERASE 19 IU/L (10-60); AST ASPARTATE AMINOTRANSFERASE 18 IU/L (10-42); BUN - BLOOD UREA NITROGEN 26 mg/dL (6-20); CALCIUM 8.6 mg/dL (8.5-10.3); CARBON DIOXIDE - CO2 26 mmol/L (21-32); CHLORIDE 104 mmol/L (101-111); CHOL/HDL RATIO 3.1 (<5.0); CHOLESTEROL 98 mg/dL; CREATININE 1.4 mg/dL (0.6-1.2); GFR - MDRD 50 (>89); GLUCOSE 93 mg/dL (70-100); HDL CHOLESTEROL 32 mg/dL; LDL CHOLESTEROL,CALCULATED 57 mg/dL; LDL/HDL RATIO 1.8 (<3.6); POTASSIUM 4.5 mmol/L (3.5-5.0); SODIUM 136 mmol/L (135-145); TOTAL PROTEIN 6.9 g/dL (6.7-8.2); TRIGLYCERIDES 45 mg/dL; VLDL CHOLESTEROL 9 mg/dL
[2022-01-07 08:15] LABS: THYROID STIMULATING HORMONE 2.19 uIU/mL (0.34-5.60)
[2022-01-07 12:42] LABS: ESTIMATED AVERAGE GLUCOSE 143 mg/dL (70-100); HEMOGLOBIN A1c% 6.6 % (4.27-6.07)
== END 2022-01-07 07:22 | disposition home or self-care (01) ==
LOC: LAB 07:21
PROVIDERS: ATTEND Internal Medicine
DX: I10 Essential (primary) hypertension (principal); E11.42 Type 2 diabetes mellitus with diabetic polyneuropathy; N40.1 Benign prostatic hyperplasia with lower urinary tract symptoms; I48.0 Paroxysmal atrial fibrillation
CPT/HCPCS: 36415; 80053; 80061; 83036; 83721; 84153; 84443

== ENCOUNTER 2022-02-22 08:00 | Outpatient (CLI) | payer MEDICARE, OTHER | END 2022-02-22 23:59 | disposition home or self-care (01) | LOC: LAB.N 08:00 | PROVIDERS: ATTEND Internal Medicine | DX: I48.0 Paroxysmal atrial fibrillation (principal); Z79.01 Long term (current) use of anticoagulants ==

== ENCOUNTER 2022-03-22 08:00 | Outpatient (CLI) | payer MEDICARE, OTHER | END 2022-03-22 23:59 | disposition home or self-care (01) | LOC: LAB.N 08:00 | PROVIDERS: ATTEND Internal Medicine | DX: I48.0 Paroxysmal atrial fibrillation (principal); Z79.01 Long term (current) use of anticoagulants ==

== ENCOUNTER 2022-04-19 08:00 | Outpatient (CLI) | payer MEDICARE, OTHER | END 2022-04-19 23:59 | disposition home or self-care (01) | LOC: LAB.WCP 08:00 | PROVIDERS: ATTEND Internal Medicine | DX: I48.0 Paroxysmal atrial fibrillation (principal); Z79.01 Long term (current) use of anticoagulants ==

== ENCOUNTER 2022-05-19 08:00 | Outpatient (CLI) | payer MEDICARE, OTHER | END 2022-05-19 23:59 | disposition home or self-care (01) | LOC: LAB.WCP 08:00 | PROVIDERS: ATTEND Internal Medicine | DX: I48.0 Paroxysmal atrial fibrillation (principal); Z79.01 Long term (current) use of anticoagulants ==

== ENCOUNTER 2022-06-02 08:00 | Outpatient (CLI) | payer MEDICARE, OTHER | END 2022-06-02 08:01 | disposition home or self-care (01) | LOC: LAB.WCP 08:00 | PROVIDERS: ATTEND Internal Medicine | DX: I48.0 Paroxysmal atrial fibrillation (principal); Z79.01 Long term (current) use of anticoagulants ==

== ENCOUNTER 2022-09-15 08:00 | Outpatient (CLI) | payer MEDICARE, OTHER | END 2022-09-15 23:59 | disposition home or self-care (01) | LOC: LAB.WCP 08:00 | PROVIDERS: ATTEND Family Medicine | DX: Z79.01 Long term (current) use of anticoagulants (principal); I48.0 Paroxysmal atrial fibrillation ==

== ENCOUNTER 2022-11-10 08:00 | Outpatient (CLI) | payer MEDICARE, OTHER | END 2022-11-10 23:59 | disposition home or self-care (01) | LOC: LAB 08:00 | PROVIDERS: ATTEND Physician Assistant Medical | DX: I87.319 Chronic venous hypertension (idiopathic) with ulcer of unspecified lower extremity (principal) | CPT/HCPCS: 87070; 87181; 87205 ==

== ENCOUNTER → 2022-11-17 | Outpatient (CLI) | payer MEDICARE, OTHER | LOC: LAB.WCP 08:00 | PROVIDERS: ATTEND Internal Medicine | DX: I48.0 Paroxysmal atrial fibrillation (principal); Z79.01 Long term (current) use of anticoagulants ==

== ENCOUNTER → 2022-11-24 | Outpatient (CLI) | payer MEDICARE, OTHER | LOC: LAB.WCP 08:00 | PROVIDERS: ATTEND Internal Medicine | DX: I48.0 Paroxysmal atrial fibrillation (principal); Z79.01 Long term (current) use of anticoagulants ==

== ENCOUNTER 2022-11-27 07:09 | Outpatient (CLI) | payer MEDICARE, OTHER ==
[2022-11-27 07:29] LABS: BASOPHILS % (AUTO) 0.3 %; EOSINOPHILS # (AUTO) 0.3 10^3/uL (0.0-0.7); EOSINOPHILS % (AUTO) 4.7 %; HCT - HEMATOCRIT 34.8 % (42.0-52.0); HGB - HEMOGLOBIN 10.8 g/dL (14.0-18.0); LYMPHOCYTES # (AUTO) 1.3 10^3/uL (1.5-3.5); LYMPHOCYTES % (AUTO) 18.8 %; MEAN CORPUSCULAR HEMOGLOBIN 27.6 pg (27.0-31.0); MEAN PLATELET VOLUME 10.2 fL (7.4-11.4); MONOCYTES # (AUTO) 0.6 10^3/uL (0.0-1.0); MONOCYTES % (AUTO) 9.2 %; NEUTROPHILS # (AUTO) 4.5 10^3/uL (1.5-6.6); NEUTROPHILS % (AUTO) 66.3 %; PLT - PLATELET COUNT 236 10^3/uL (130-450); RED BLOOD COUNT 3.91 10^6/uL (4.70-6.10); RED CELL DISTRIBUTION WIDTH 14.9 % (12.0-15.0); WHITE BLOOD COUNT 6.8 x10^3/uL (4.8-10.8)
[2022-11-27 08:04] LABS: ALBUMIN 3.4 g/dL (3.2-5.5); ALBUMIN/GLOBULIN RATIO 0.9 (1.0-2.2); BILIRUBIN,TOTAL 0.9 mg/dL (0.2-1.0); CALCIUM 8.9 mg/dL (8.5-10.3); CREATININE 1.7 mg/dL (0.6-1.2); POTASSIUM 4.2 mmol/L (3.5-5.0)
== END 2022-11-27 07:10 | disposition home or self-care (01) ==
LOC: LAB 07:09
PROVIDERS: ATTEND Internal Medicine
DX: I48.0 Paroxysmal atrial fibrillation (principal)
CPT/HCPCS: 36415; 80053; 85025

== ENCOUNTER 2023-01-17 13:21 | Outpatient (CLI) | payer MEDICARE, OTHER | END 2023-01-17 13:22 | disposition home or self-care (01) | LOC: LAB 13:21 | PROVIDERS: ATTEND Internal Medicine | DX: Z79.01 Long term (current) use of anticoagulants (principal); I48.0 Paroxysmal atrial fibrillation | CPT/HCPCS: 36416; 85610 ==

== ENCOUNTER 2023-01-18 12:55 | Outpatient (CLI) | payer MEDICARE, OTHER | END 2023-01-18 12:56 | disposition home or self-care (01) | LOC: LAB 12:55 | PROVIDERS: ATTEND Internal Medicine | DX: Z79.01 Long term (current) use of anticoagulants (principal); I48.0 Paroxysmal atrial fibrillation | CPT/HCPCS: 36416; 85610 ==

== ENCOUNTER 2023-01-19 15:12 | Outpatient (CLI) | payer MEDICARE, OTHER | END 2023-01-19 15:13 | disposition home or self-care (01) | LOC: LAB 15:12 | PROVIDERS: ATTEND Internal Medicine | DX: Z79.01 Long term (current) use of anticoagulants (principal); I48.0 Paroxysmal atrial fibrillation | CPT/HCPCS: 36416; 85610 ==

== ENCOUNTER 2023-01-20 10:07 | Outpatient (CLI) | payer MEDICARE, OTHER | END 2023-01-20 10:08 | disposition home or self-care (01) | LOC: LAB 10:07 | PROVIDERS: ATTEND Internal Medicine | DX: Z79.01 Long term (current) use of anticoagulants (principal); I48.0 Paroxysmal atrial fibrillation | CPT/HCPCS: 36416; 85610 ==

== ENCOUNTER 2023-01-24 13:53 | Outpatient (CLI) | payer MEDICARE, OTHER | END 2023-01-24 13:54 | disposition home or self-care (01) | LOC: LAB 13:53 | PROVIDERS: ATTEND Internal Medicine | DX: Z79.01 Long term (current) use of anticoagulants (principal); I48.0 Paroxysmal atrial fibrillation | CPT/HCPCS: 36416; 85610 ==

== ENCOUNTER 2023-01-31 14:30 | Outpatient (CLI) | payer MEDICARE, OTHER | END 2023-01-31 14:31 | disposition home or self-care (01) | LOC: LAB 14:30 | PROVIDERS: ATTEND Internal Medicine | DX: Z79.01 Long term (current) use of anticoagulants (principal); I48.0 Paroxysmal atrial fibrillation | CPT/HCPCS: 36416; 85610 ==

== ENCOUNTER 2023-02-16 07:32 | Outpatient (CLI) | payer MEDICARE, OTHER ==
[2023-02-16 08:01] LABS: BASOPHILS % (AUTO) 0.2 %; EOSINOPHILS # (AUTO) 0.2 10^3/uL (0.0-0.7); EOSINOPHILS % (AUTO) 3.1 %; HCT - HEMATOCRIT 31.6 % (42.0-52.0); HGB - HEMOGLOBIN 9.6 g/dL (14.0-18.0); LYMPHOCYTES # (AUTO) 1.5 10^3/uL (1.5-3.5); LYMPHOCYTES % (AUTO) 23.8 %; MEAN CORPUSCULAR HEMOGLOBIN 26.1 pg (27.0-31.0); MEAN CORPUSCULAR HGB CONC 30.4 g/dL (32.0-36.0); MEAN CORPUSCULAR VOLUME 85.9 fL (80.0-94.0); MEAN PLATELET VOLUME 10.3 fL (7.4-11.4); MONOCYTES # (AUTO) 0.6 10^3/uL (0.0-1.0); MONOCYTES % (AUTO) 9.2 %; NEUTROPHILS % (AUTO) 63.4 %; PLT - PLATELET COUNT 175 10^3/uL (130-450); RED BLOOD COUNT 3.68 10^6/uL (4.70-6.10); RED CELL DISTRIBUTION WIDTH 17.2 % (12.0-15.0); WHITE BLOOD COUNT 6.2 x10^3/uL (4.8-10.8)
[2023-02-16 08:07] LABS: ALBUMIN 3.2 g/dL (3.2-5.5); ALBUMIN/GLOBULIN RATIO 1.1 (1.0-2.2); BILIRUBIN,TOTAL 0.6 mg/dL (0.2-1.0); CALCIUM 8.4 mg/dL (8.5-10.3); CREATININE 1.9 mg/dL (0.6-1.2); POTASSIUM 4.4 mmol/L (3.5-5.0); TOTAL PROTEIN 6.2 g/dL (6.7-8.2)
[2023-02-16 08:22] LABS: THYROID STIMULATING HORMONE 4.31 uIU/mL (0.34-5.60)
[2023-02-16 09:42] LABS: MICROALBUM/CREATININE RATIO,UR 18.6 ug/mg (<30.0); MICROALBUMIN,URINE 0.8 mg/dL (0-300.0)
[2023-02-16 10:49] LABS: ESTIMATED AVERAGE GLUCOSE 177 mg/dL (70-100); HEMOGLOBIN A1c% 7.8 % (4.27-6.07)
== END 2023-02-16 07:33 | disposition home or self-care (01) ==
LOC: LAB 07:32
PROVIDERS: ATTEND Internal Medicine
DX: I10 Essential (primary) hypertension (principal); I48.0 Paroxysmal atrial fibrillation; E11.42 Type 2 diabetes mellitus with diabetic polyneuropathy; Z79.01 Long term (current) use of anticoagulants
CPT/HCPCS: 36415; 80053; 82043; 82570; 83036; 84443; 85025; 85610

== ENCOUNTER 2023-02-18 09:23 | Emergency (ER) | payer MEDICARE, OTHER ==
--- OUTSIDE RECORDS SUMMARY | 2023-02-18 10:02 | EXTERNAL MEDICAL SUMMARY RPT | Continuity of Care Document ---
:1945 Author Organization [facility] Address [address] [place] [address] Phone Allergies No information. Encounters No information. Functional Status No information. Immunizations No information. Medications No information. Problems date description facility 2022-11-29 11:09 Unspecified atrial fibrillation [facility] 2023-01-20 07:46 [facility] prosthetic heart [facility] Procedures No information. Results/Labs test date author facility value unit interpret ation Result panel 1 (unknown) (no (unknown) (unknown) (no value) (units (unk nown) date) unknown) (unknown) (no (unknown) (unknown) +---------+ (units (un known) date) [phone] +--------- unknown) (unknown) (no (unknown) (unknown) +---------+ (units (un known) date) Hospital +--------- unknown) (unknown) (no (unknown) (unknown) + (units (unknown) date) unknown) --- (unknown) (no (unknown) (unknown) [id number] (units (unkno wn) date) unknown) (unknown) (no (unknown) (unknown) 01/20/23 (units (unkno wn) date) unknown) (unknown) (no (unknown) (unknown) [address] (units (unknown) date) unknown) (unknown) (no (unknown) (unknown) : : [address] (units (unknown) date) : : unknown) (unknown) (no (unknown) (unknown) : : [id number] : : (units ( unknown) date) unknown) (unknown) (no (unknown) (unknown) : : SHINE Oliveira (units (unknown) date) : : unknown) (unknown) (no (unknown) (unknown) : : Phone: [phone] (units (unknown) date) : unknown) (unknown) (no (unknown) (unknown) :Account #: (units (un known) date) [id number] Gender: unknown) Male BSA: 2.7 m2 : (unknown) (no (unknown) (unknown) :: 1945 (units (unknown) date) Age: 77 yrs BP: unknown) 134/100 mmHg: (unknown) (no (unknown) (unknown) :Hospital MRN #: (units (unknown) date) [id number] unknown) ReadingLocation: Weight: 329 lb : (unknown) (no (unknown) (unknown) :Name: JOANNE, (units ( unknown) date) ANNETTE Rosario Study unknown) Date: 01/20/2023 Height: 73 in : (unknown) (no (unknown) (unknown) :Ordering (units (unkn own) date) Physician: Angy : unknown) (unknown) (no (unknown) (unknown) :Reason For Study: (units (unknown) date) Status post TAVR : unknown) (unknown) (no (unknown) (unknown) :Referring: (units (un known) date) ANGY MCKINNEY : unknown) (unknown) (no (unknown) (unknown) :Eric Enamorado (units (unknown) date) Performed By: unknown) Joy Ryan : (unknown) (no (unknown) (unknown) sev ratio: 0.68 (units (unknown) date) unknown) (unknown) (no (unknown) (unknown) AV VR_phl: 0.68 MV (units (unknown) date) P1/2t-pr_phl: 43.7 unknown) msec (unknown) (no (unknown) (unknown) LOPEZ indexed to BSA (units (unknown) date) (cm2/m2): 0.89 unknown) (unknown) (no (unknown) (unknown) LOPEZ(VTI)/BSA_phl: (units (unknown) date) 0.88 unknown) (unknown) (no (unknown) (unknown) Accession Number: (units (unknown) date) [id number] unknown) (unknown) (no (unknown) (unknown) Age/Sex: 77 / M (units (unknown) date) Date of Service: unknown) (unknown) (no (unknown) (unknown) [place], [place] (units ( unknown) date) [id number] unknown) (unknown) (no (unknown) (unknown) Ao V2 VTI: 16.9 cm (units (unknown) date) LOPEZ(V,D): 2.3 cm2 unknown) (unknown) (no (unknown) (unknown) Ao V2 max: 107.0 (units (unknown) date) cm/sec LVOT Max unknown) Ar: 72.4 cm/sec (unknown) (no (unknown) (unknown) Ao V2 mean: 77.1 (units (unknown) date) cm/sec LV V1 max unknown) P.1 mmHg (unknown) (no (unknown) (unknown) Ao max P.0 (units (unknown) date) mmHg LV V1 VTI: unknown) 11.5 cm (unknown) (no (unknown) (unknown) Ao mean P.3 (units (unknown) date) mmHg LOPEZ(I,D): 2.4 unknown) cm2 (unknown) (no (unknown) (unknown) Aortic Valve: The (units (unknown) date) aortic valve is not unknown) well visualized. 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 Right atrium not well visualized (unknown) (no (unknown) (unknown) : 1945 (units (unknown) date) Acct:[id number] unknown) (unknown) (no (unknown) (unknown) Doppler (units (unkno wn) date) Measurements + unknown) Calculations (unknown) (no (unknown) (unknown) E/E' med: 25.9 PA (units (unknown) date) V2 max: 66.4 cm/sec unknown) (unknown) (no (unknown) (unknown) EKG tracing is not (units (unknown) date) available on any of unknown) the views. Thus can not commen on wall (unknown) (no (unknown) (unknown) EPSS: 0.60 cm (units ( unknown) date) unknown) (unknown) (no (unknown) (unknown) Echocardiogram (units (unknown) date) Report unknown) (unknown) (no (unknown) (unknown) Echocardiography (units (unknown) date) Report unknown) (unknown) (no (unknown) (unknown) Electronically (units (unknown) date) signed by: Angy rosales) Eric Enamorado on (unknown) (no (unknown) (unknown) Endocardium is not (units (unknown) date) well seen on any of unknown) the views. (unknown) (no (unknown) (unknown) FS: 15.4 % (units (unk nown) date) unknown) (unknown) (no (unknown) (unknown) Great Vessels: The (units (unknown) date) ascending aorta unknown) could not be visualized. The pulmonary is (unknown) (no (unknown) (unknown) IVSd: 1.3 cm (units (u nknown) date) unknown) (unknown) (no (unknown) (unknown) In terms of (units (un known) date) valvular heart unknown) disease, valves are not well seen. There is at (unknown) (no (unknown) (unknown) Interpretation (units (unknown) date) Summary unknown) (unknown) (no (unknown) (unknown) [facility] (units (unknown) date) unknown) (unknown) (no (unknown) (unknown) [place] (units (unkno wn) date) unknown) (unknown) (no (unknown) (unknown) LA dimension: 5.2 (units (unknown) date) cm IVC diam: 3.1 cm unknown) (unknown) (no (unknown) (unknown) LV rojas. (units (unkno wn) date) diameter/BSA unknown) (cm/m2): 2.0 (unknown) (no (unknown) (unknown) LV sys. (units (unkno wn) date) diameter/BSA unknown) (cm/m2): 1.7 (unknown) (no (unknown) (unknown) LVIDd: 5.2 cm LVOT (units (unknown) date) diam: 2.1 cm unknown) (unknown) (no (unknown) (unknown) LVIDs: 4.4 cm (units ( unknown) date) unknown) (unknown) (no (unknown) (unknown) LVPWd: 1.3 cm (units ( unknown) date) unknown) (unknown) (no (unknown) (unknown) Left Ventricle: (units (unknown) date) The left ventricle unknown) is normal in size. There is mild-moderate (unknown) (no (unknown) (unknown) Loc: ECHO (units (unkn own) date) unknown) (unknown) (no (unknown) (unknown) MMode/2D (units (unkno wn) date) Measurements + unknown) Calculations (unknown) (no (unknown) (unknown) MV E max ar: (units ( unknown) date) 161.3 cm/sec TR max unknown) ar: 305.0 cm/sec (unknown) (no (unknown) (unknown) MV V2 VTI: 33.1 cm (units (unknown) date) unknown) (unknown) (no (unknown) (unknown) MV V2 mean: 127.7 (units (unknown) date) cm/sec SV(LVOT): unknown) 39.8 ml (unknown) (no (unknown) (unknown) MV dec time: 0.15 (units (unknown) date) sec PA V2 mean: unknown) 50.2 cm/sec (unknown) (no (unknown) (unknown) MV mean P.7 (units (unknown) date) mmHg unknown) (unknown) (no (unknown) (unknown) MVA(VTI): 1.2 cm2 (units (unknown) date) PA mean P.0 unknown) mmHg (unknown) (no (unknown) (unknown) Med Peak E' Ar: (units (unknown) date) 6.2 cm/sec TR max unknown) P.2 mmHg (unknown) (no (unknown) (unknown) Mitral Valve: The (units (unknown) date) mitral valve unknown) leaflets are heavily calcified. Not well (unknown) (no (unknown) (unknown) Moderate tricuspid (units (unknown) date) regurgitation with unknown) estimated PA systolic pressure of 57 mm (unknown) (no (unknown) (unknown) Ordering Provider: (units (unknown) date) Angy Mckinney MD unknown) (unknown) (no (unknown) (unknown) Patient scanned in (units (unknown) date) sitting position unknown) due to shortness of breath. The patient (unknown) (no (unknown) (unknown) Patient: (units (unkno wn) date) Annette Pedraza unknown) MR#: [id number] (unknown) (no (unknown) (unknown) Pericardium/ (units (u nknown) date) Pleura There is a unknown) small pericardial effusion noted. There is no (unknown) (no (unknown) (unknown) Procedure: A (units (u nknown) date) two-dimensional unknown) transthoracic echocardiogram with color flow (unknown) (no (unknown) (unknown) Procedure: EC echo (units (unknown) date) doppler complete unknown) (unknown) (no (unknown) (unknown) Pulmonic Valve: (units (unknown) date) The pulmonic valve unknown) is not well visualized. (unknown) (no (unknown) (unknown) Reading (units (unkno wn) date) Physician: unknown) 3 10:54 AM (unknown) (no (unknown) (unknown) Right Ventricle: (units (unknown) date) The right ventricle unknown) is borderline dilated. (unknown) (no (unknown) (unknown) Severe left atrial (units (unknown) date) enlargement. unknown) Neither RV nor RA are well seen. (unknown) (no (unknown) (unknown) Signed (units (unkno wn) date) unknown) (unknown) (no (unknown) (unknown) There is mild (units ( unknown) date) concentric LVH. unknown) (unknown) (no (unknown) (unknown) This is a (units (unkn own) date) technically unknown) difficult study that could not be enhanced with Definity (unknown) (no (unknown) (unknown) Tricuspid Valve: (units (unknown) date) The tricuspid valve unknown) is not well visualized. There is (unknown) (no (unknown) (unknown) (units (unknown) date) unknown) ___ (unknown) (no (unknown) (unknown) accurately (units (unk nown) date) assessed due to unknown) atrial fibrillation. (unknown) (no (unknown) (unknown) and Doppler was (units (unknown) date) performed. The unknown) study quality was technically difficult. (unknown) (no (unknown) (unknown) aortic valve. (units ( unknown) date) unknown) (unknown) (no (unknown) (unknown) concentric left (units (unknown) date) ventricular unknown) hypertrophy. Diastolic function could not be (unknown) (no (unknown) (unknown) during the study. (units (unknown) date) unknown) (unknown) (no (unknown) (unknown) echo contrast due (units (unknown) date) to lack of IV unknown) access. (unknown) (no (unknown) (unknown) hg assuming RA (units (unknown) date) pressure of 20 mm unknown) Hg. (unknown) (no (unknown) (unknown) history via TAVR. (units (unknown) date) Leaflets are not unknown) well seen. (unknown) (no (unknown) (unknown) it collapses less (units (unknown) date) than 50% with a unknown) sniff. This suggests a high right atrial (unknown) (no (unknown) (unknown) least moderate (units (unknown) date) mitral annular unknown) calcification. 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 unknown) (unknown) (no (unknown) (unknown) motion nor LV (units ( unknown) date) systolic function unknown) nor heart rate. (unknown) (no (unknown) (unknown) not well (units (unkno wn) date) visualized. The IVC unknown) is dilated (diameter is greater than 2.1 cm) and (unknown) (no (unknown) (unknown) pleural effusion. (units (unknown) date) unknown) (unknown) (no (unknown) (unknown) pressure of 15 mm (units (unknown) date) Hg. unknown) (unknown) (no (unknown) (unknown) secondary to (units (u nknown) date) technical unknown) limitations. (unknown) (no (unknown) (unknown) visualized. There (units (unknown) date) is trace mitral unknown) regurgitation. (unknown) (no (unknown) (unknown) was in atrial (units ( unknown) date) fibrillation with unknown) rapid ventricular response during the exam (unknown) (no (unknown) (unknown) with a heart rate (units (unknown) date) exceeding 100 bpm. unknown) The heart rate ranged between 118-165 bpm Social History No information. Vital Signs No information.
[2023-02-18] MEDS ORDERED: FUROSEMIDE 40 MG/4 ML VIAL IVP STA (10:03)
--- NOTE | 2023-02-18 10:27 | ED Physician Documentation ---
History of Present Illness - Stated complaint Stated Complaint: ALLERGIC REACTION MALE GI - Chief complaint Chief Complaint: General - History obtained from History obtained from: Patient, Family - History of Present Illness Pain level max: 0 Pain level now: 0 - Additonal information Additional information: 77-year-old male brought in by family today. He states that he has gained approximately 20 pounds since having his pacemaker implanted and his aortic valve replaced 1 month ago at the [facility]. Has a history of congestive heart failure. Feels like he is retaining more fluid. Noticed swelling in his scrotum today. concerned about allergic reaction to diltiazem causing the swelling. no hives, no wheezing, has chronic dyspnea. No fevers. No chills. He is also complaining of a rash within his skin folds, had been on a powder but ran out. Review of Systems Constitutional: denies: Fever, Chills Throat: denies: Sore throat Cardiac: denies: Chest pain / pressure GI: denies: Vomiting Musculoskeletal: denies: Neck pain, Back pain Neurologic: denies: Headache PD PAST MEDICAL HISTORY - Past Medical History Past Medical History: Yes Cardiovascular: Hypertension, Atrial fibrillation Respiratory: Asthma, COPD, Emphysema Endocrine/Autoimmune: Type 2 diabetes GI: None : None Psych: Depression, Anxiety Musculoskeletal: Osteoarthritis Derm: None - Past Surgical History Past Surgical History: No General: Cholecystectomy Ortho: Knee replacement, Shoulder arthroplasty Cardiovascular: Coronary stent - Present Medications Home Medications: Ambulatory Orders Medication Instructions Recorded Confirmed Atorvastatin Calcium 40 mg PO QPM 11/19/16 02/18/23 Nitroglycerin [Nitrostat] 0.4 mg PO Q5M PRN 11/19/16 02/18/23 Nystatin [Nystop] 1 applic TOP BID 30 Days #15 gm 12/13/22 02/18/23 Furosemide [Lasix] 40 mg PO DAILY 01/31/23 02/18/23 Insulin NPH Human [HumuLIN N] 3 units SQ QPM 01/31/23 02/18/23 Aspirin [Aspirin EC] 81 mg PO DAILY 02/18/23 02/18/23 Carvedilol [Coreg] 37.5 mg PO BID 02/18/23 02/18/23 Cholecalciferol (Vitamin D3) 25 mcg PO BID 02/18/23 02/18/23 [Vitamin D3] Furosemide [Lasix] 80 mg PO DAILY #14 tablet 02/18/23 Magnesium Oxide [Magnesium] 400 mg PO BID 02/18/23 02/18/23 Melatonin/Pyridoxine [Melatonin 5 1 each PO DAILY 02/18/23 02/18/23 mg Tablet] Nystatin/Triamcin 1 applic TP BID #1 each 02/18/23 [Nystatin-Triamcinolone Ointm] Warfarin [Coumadin] 2.5 mg PO .SUN, TUE, , Tue02/18/23 02/18/23 Warfarin [Coumadin] 5 mg PO .TUE, TUE, Tue02/18/23 02/18/23 diltiaZEM CD [Cardizem Cd] 240 mg PO BID 02/18/23 02/18/23 - Allergies Allergies/Adverse Reactions: Allergies Allergy/AdvReac Type Severity Reaction Status Date / Time codeine Allergy Intermediate Itching Verified 11/19/16 12:33 lisinopril AdvReac Respiratory Verified 02/18/23 09:36 - Social History Does the pt smoke?: No Smoking Status: Never smoker Does the pt drink ETOH?: No Does the pt have substance abuse?: No - Immunizations Immunizations are current?: Yes PD ED PE NORMAL - Vitals Vital signs reviewed: Yes - General General: Alert and oriented X 3, No acute distress - HEENT HEENT: Moist mucous membranes - Neck Neck: Supple, no meningeal sign - Cardiac Cardiac: Other (irregular, tachycardic) - Respiratory Respiratory: No respiratory distress, Clear bilaterally - Abdomen Abdomen: Soft, Non tender, Non distended - Derm Derm: Warm and dry - Extremities Extremities: Other (diffuse pitting edema to mid abdomen. There is also an erythematous rash underneath the left chest wall skin folds, satellite lesions present. No drainage.) - Neuro Neuro: Alert and oriented X 3 - Psych Psych: Normal mood, Normal affect Results - Vitals Vitals: Vital Signs - 24 hr 02/18/23 02/18/23 02/18/23 09:28 09:58 10:54 Temperature 35.9 C L Heart Rate 110 H 108 H 102 H Respiratory 18 16 19 Rate Blood Pressure 134/57 H 127/87 H 105/73 O2 Saturation 95 97 97 02/18/23 12:15 Temperature Heart Rate 118 H Respiratory 22 Rate Blood Pressure 110/84 H O2 Saturation 96 Oxygen O2 Source Room air - EKG (time done) 1031 EKG releavant findings:: EKG personally interpreted by author of this note. Relevant findings are: Rate: Rate (enter#) (101) Rhythm: Atrial fibrillation Intervals: RBBB (incomplete) Ischemia: Other (no ischemic changes) - Labs Labs: Laboratory Tests 02/18/23 02/18/23 02/18/23 10:15 10:15 10:15 WBC 6.7 RBC 3.68 L Hgb 9.4 L Hct 31.7 L MCV 86.1 MCH 25.5 L MCHC 29.7 L RDW 17.2 H Plt Count 183 MPV 10.6 Neut # (Auto) 4.4 Lymph # (Auto) 1.4 L [place] # (Auto) 0.6 Eos # (Auto) 0.2 Baso # (Auto) 0.0 Absolute Nucleated RBC 0.00 Nucleated RBC % 0.0 Sodium 139 Potassium 4.2 Chloride 104 Carbon Dioxide 30 Anion Gap 5.0 L BUN 36 H Creatinine 1.5 H Estimated GFR (MDRD) 46 L Glucose 192 H Calcium 8.6 Total Bilirubin 0.8 AST 14 ALT 14 Alkaline Phosphatase 62 Troponin I High Sens 8.8 B-Natriuretic Peptide Total Protein 6.5 L Albumin 3.3 Globulin 3.2 Albumin/Globulin Ratio 1.0 Lipase 38 02/18/23 10:15 WBC RBC Hgb Hct MCV MCH MCHC RDW Plt Count MPV Neut # (Auto) Lymph # (Auto) [place] # (Auto) Eos # (Auto) Baso # (Auto) Absolute Nucleated RBC Nucleated RBC % Sodium Potassium Chloride Carbon Dioxide Anion Gap BUN Creatinine Estimated GFR (MDRD) Glucose Calcium Total Bilirubin AST ALT Alkaline Phosphatase Troponin I High Sens B-Natriuretic Peptide 374 H Total Protein Albumin Globulin Albumin/Globulin Ratio Lipase - Rads (name of study) cxr Relevant Findings:: Final report received, See rad report PD Medical Decision Making - ED course Complexity details: reviewed results, re-evaluated patient, considered differential, d/w patient ED course: Patient does not have any symptoms consistent with pneumonia. He does have symptoms consistent with anasarca, fluid overload and CHF. No hypoxia or respiratory distress. He was given 40 mg of Lasix IV and had about 800 mL of urine output over the next hour. He is feeling better. There are no signs of infection in the scrotum. He also appears to have a candidal infection under the skin folds on the left chest and right chest. There is no secondary infection. Will place on nystatin for this. We will increase his Lasix for home. Recommend that he follow-up with his doctor for further care. Patient is well-appearing, nontoxic. No indication for admission at this time. Patient counseled regarding signs and symptoms for which I believe and urgent re- evaluation would be necessary. Patient with good understanding of and agreement to plan and is comfortable going home at this time This document was made in part using voice recognition software. While efforts are made to proofread this document, sound alike and grammatical errors may occur. Departure - Departure Disposition: Home, Self Care Clinical Impression: Anasarca, Candidal dermatitis CHF exacerbation Qualifiers: Heart failure type: unspecified Qualified Code(s): I50.9 - Heart failure, unspecified Condition: Good Instructions: ED Candidiasis Cutaneous, ED CHF General Follow-Up: Jacky Gould MD [Primary Care Provider] - Within 1 week Prescriptions: Furosemide [Lasix] 80 mg PO DAILY #14 tablet Nystatin/Triamcin [Nystatin-Triamcinolone Ointm] 1 applic TP BID #1 each Comments: We will increase your Lasix to 80 mg daily in total for the next 1 week. You can then resume your Lasix 40 mg daily. A prescription for the increased Lasix was sent to [facility] pharmacy. Please return if you worsen. Elevate your legs whenever possible. If you are having pain in the scrotum, you can elevate it with a towel as well. Discharge Date/Time: 02/18/23 12:53
--- NOTE | 2023-02-18 10:35 | XRAY Report ---
PROCEDURE: Chest 1 View X-Ray INDICATIONS: dyspnea TECHNIQUE: One view of the chest was acquired. COMPARISON: None. FINDINGS: Surgical changes and devices: None. Lungs and pleura: Right basilar atelectasis versus consolidation. Question right pleural effusion. Mediastinum: Mediastinal contours appear normal. Heart size is normal. Bones and chest wall: No suspicious bony lesions. Overlying soft tissues appear unremarkable. IMPRESSION: Focal right basilar atelectasis versus consolidation. Question right pleural effusion. Progress films are recommended until clear. Reviewed by: Skyler Jj MD on 02/18/2023 10:34 AM PDT Approved by: Skyler Jj MD on 02/18/2023 10:34 AM PDT Station ID: [id number]
[2023-02-18 10:37] LABS: BASOPHILS % (AUTO) 0.1 %; EOSINOPHILS # (AUTO) 0.2 10^3/uL (0.0-0.7); EOSINOPHILS % (AUTO) 3.4 %; HCT - HEMATOCRIT 31.7 % (42.0-52.0); HGB - HEMOGLOBIN 9.4 g/dL (14.0-18.0); LYMPHOCYTES # (AUTO) 1.4 10^3/uL (1.5-3.5); LYMPHOCYTES % (AUTO) 20.8 %; MEAN CORPUSCULAR HEMOGLOBIN 25.5 pg (27.0-31.0); MEAN CORPUSCULAR HGB CONC 29.7 g/dL (32.0-36.0); MEAN CORPUSCULAR VOLUME 86.1 fL (80.0-94.0); MEAN PLATELET VOLUME 10.6 fL (7.4-11.4); MONOCYTES # (AUTO) 0.6 10^3/uL (0.0-1.0); MONOCYTES % (AUTO) 9.4 %; NEUTROPHILS # (AUTO) 4.4 10^3/uL (1.5-6.6); PLT - PLATELET COUNT 183 10^3/uL (130-450); RED BLOOD COUNT 3.68 10^6/uL (4.70-6.10); RED CELL DISTRIBUTION WIDTH 17.2 % (12.0-15.0); WHITE BLOOD COUNT 6.7 x10^3/uL (4.8-10.8)
[2023-02-18 10:42] LABS: ALBUMIN 3.3 g/dL (3.2-5.5); BILIRUBIN,TOTAL 0.8 mg/dL (0.2-1.0); CALCIUM 8.6 mg/dL (8.5-10.3); CREATININE 1.5 mg/dL (0.6-1.2); POTASSIUM 4.2 mmol/L (3.5-5.0); TOTAL PROTEIN 6.5 g/dL (6.7-8.2)
[2023-02-18 12:16] VITALS: BP 110/84
== END 2023-02-18 12:53 | disposition home or self-care (01) ==
LOC: ED 09:23
DX: R60.1 Generalized edema (principal); L30.8 Other specified dermatitis; I11.0 Hypertensive heart disease with heart failure; I50.9 Heart failure, unspecified; I48.91 Unspecified atrial fibrillation; E11.9 Type 2 diabetes mellitus without complications; J43.9 Emphysema, unspecified; Z79.01 Long term (current) use of anticoagulants; Z79.899 Other long term (current) drug therapy; Z79.82 Long term (current) use of aspirin; Z79.84 Long term (current) use of oral hypoglycemic drugs
CPT/HCPCS: 36415; 80053; 83690; 83880; 84484; 85025; 93005; 96374; 99284

== ENCOUNTER 2023-03-11 10:13 | Outpatient (CLI) | payer MEDICARE, OTHER | END 2023-03-11 10:14 | disposition home or self-care (01) | LOC: LAB 10:13 | PROVIDERS: ATTEND Internal Medicine | DX: Z79.01 Long term (current) use of anticoagulants (principal); I48.0 Paroxysmal atrial fibrillation | CPT/HCPCS: 36416; 85610 ==

== ENCOUNTER 2023-04-01 13:13 | Outpatient (CLI) | payer MEDICARE, OTHER ==
[2023-04-01 13:47] LABS: CREATININE 1.6 mg/dL (0.6-1.2)
[2023-04-01 20:40] LABS: ESTIMATED AVERAGE GLUCOSE 171 mg/dL (70-100); HEMOGLOBIN A1c% 7.6 % (4.27-6.07)
== END 2023-04-01 13:14 | disposition home or self-care (01) ==
LOC: LAB 13:13
PROVIDERS: ATTEND Internal Medicine
DX: E11.42 Type 2 diabetes mellitus with diabetic polyneuropathy (principal)
CPT/HCPCS: 36415; 80048; 83036

== ENCOUNTER 2023-04-14 11:16 | Outpatient (CLI) | payer MEDICARE, OTHER ==
[2023-04-14 11:37] LABS: BASOPHILS % (AUTO) 0.3 %; EOSINOPHILS # (AUTO) 0.2 10^3/uL (0.0-0.7); EOSINOPHILS % (AUTO) 3.1 %; HCT - HEMATOCRIT 37.6 % (42.0-52.0); HGB - HEMOGLOBIN 11.5 g/dL (14.0-18.0); LYMPHOCYTES # (AUTO) 1.8 10^3/uL (1.5-3.5); LYMPHOCYTES % (AUTO) 27.8 %; MEAN CORPUSCULAR HEMOGLOBIN 24.8 pg (27.0-31.0); MEAN CORPUSCULAR HGB CONC 30.6 g/dL (32.0-36.0); MONOCYTES # (AUTO) 0.6 10^3/uL (0.0-1.0); MONOCYTES % (AUTO) 8.6 %; NEUTROPHILS # (AUTO) 3.9 10^3/uL (1.5-6.6); NEUTROPHILS % (AUTO) 59.7 %; PLT - PLATELET COUNT 192 10^3/uL (130-450); RED BLOOD COUNT 4.64 10^6/uL (4.70-6.10); RED CELL DISTRIBUTION WIDTH 17.7 % (12.0-15.0); WHITE BLOOD COUNT 6.5 x10^3/uL (4.8-10.8)
[2023-04-14 12:01] LABS: CALCIUM 8.9 mg/dL (8.5-10.3); CREATININE 1.7 mg/dL (0.6-1.2); POTASSIUM 3.8 mmol/L (3.5-5.0)
== END 2023-04-14 11:17 | disposition home or self-care (01) ==
LOC: LAB 11:16
PROVIDERS: ATTEND Physician Assistant Medical
DX: I48.0 Paroxysmal atrial fibrillation (principal); Z79.01 Long term (current) use of anticoagulants
CPT/HCPCS: 36415; 80048; 85025; 85610

== ENCOUNTER 2023-05-09 07:48 | Outpatient (CLI) | payer MEDICARE, OTHER | END 2023-05-09 07:49 | disposition home or self-care (01) | LOC: LAB 07:48 | PROVIDERS: ATTEND Internal Medicine | DX: Z79.01 Long term (current) use of anticoagulants (principal); I48.0 Paroxysmal atrial fibrillation | CPT/HCPCS: 36416; 85610 ==

== ENCOUNTER 2023-06-20 08:29 | Outpatient (CLI) | payer MEDICARE, OTHER | END 2023-06-20 08:30 | disposition home or self-care (01) | LOC: LAB 08:29 | PROVIDERS: ATTEND Internal Medicine | DX: Z79.01 Long term (current) use of anticoagulants (principal); I48.0 Paroxysmal atrial fibrillation | CPT/HCPCS: 36416; 85610 ==

== ENCOUNTER 2023-07-20 12:14 | Outpatient (CLI) | payer MEDICARE, OTHER | END 2023-07-20 12:15 | disposition home or self-care (01) | LOC: LAB 12:14 | PROVIDERS: ATTEND Internal Medicine | DX: Z79.01 Long term (current) use of anticoagulants (principal); I48.0 Paroxysmal atrial fibrillation | CPT/HCPCS: 36416; 85610 ==

== ENCOUNTER 2023-07-27 14:27 | Outpatient (CLI) | payer MEDICARE, OTHER | END 2023-07-27 14:28 | disposition home or self-care (01) | LOC: LAB 14:27 | PROVIDERS: ATTEND Internal Medicine | DX: Z79.01 Long term (current) use of anticoagulants (principal); I48.0 Paroxysmal atrial fibrillation | CPT/HCPCS: 36416; 85610 ==

== ENCOUNTER 2023-08-22 10:31 | Outpatient (CLI) | payer MEDICARE, OTHER | END 2023-08-22 10:32 | disposition home or self-care (01) | LOC: LAB 10:31 | PROVIDERS: ATTEND Internal Medicine | DX: Z79.01 Long term (current) use of anticoagulants (principal); I48.0 Paroxysmal atrial fibrillation | CPT/HCPCS: 36416; 85610 ==

== ENCOUNTER 2023-10-19 10:04 | Outpatient (CLI) | payer MEDICARE, OTHER ==
[2023-10-19 10:26] LABS: BASOPHILS % (AUTO) 0.4 %; EOSINOPHILS # (AUTO) 0.6 10^3/uL (0.0-0.7); EOSINOPHILS % (AUTO) 8.1 %; HCT - HEMATOCRIT 40.8 % (42.0-52.0); HGB - HEMOGLOBIN 12.6 g/dL (14.0-18.0); LYMPHOCYTES # (AUTO) 1.8 10^3/uL (1.5-3.5); LYMPHOCYTES % (AUTO) 23.8 %; MEAN CORPUSCULAR HEMOGLOBIN 28.4 pg (27.0-31.0); MEAN CORPUSCULAR HGB CONC 30.9 g/dL (32.0-36.0); MEAN CORPUSCULAR VOLUME 91.9 fL (80.0-94.0); MEAN PLATELET VOLUME 10.5 fL (7.4-11.4); MONOCYTES # (AUTO) 0.6 10^3/uL (0.0-1.0); MONOCYTES % (AUTO) 8.3 %; NEUTROPHILS # (AUTO) 4.5 10^3/uL (1.5-6.6); PLT - PLATELET COUNT 197 10^3/uL (130-450); RED BLOOD COUNT 4.44 10^6/uL (4.70-6.10); WHITE BLOOD COUNT 7.6 x10^3/uL (4.8-10.8)
[2023-10-19 10:45] LABS: ALBUMIN 3.9 g/dL (3.2-5.5); ALBUMIN/GLOBULIN RATIO 1.1 (1.0-2.2); ALKALINE PHOSPHATASE 99 IU/L (42-121); ALT ALANINE AMINOTRANSFERASE 17 IU/L (10-60); AST ASPARTATE AMINOTRANSFERASE 20 IU/L (10-42); BILIRUBIN,TOTAL 0.7 mg/dL (0.2-1.0); BUN - BLOOD UREA NITROGEN 33 mg/dL (6-20); CALCIUM 9.5 mg/dL (8.5-10.3); CARBON DIOXIDE - CO2 33 mmol/L (21-32); CHLORIDE 104 mmol/L (101-111); CHOL/HDL RATIO 2.7 (<5.0); CHOLESTEROL 92 mg/dL; CREATININE 1.7 mg/dL (0.6-1.3); GFR - MDRD 39 (>89); GLUCOSE 88 mg/dL (74-104); HDL CHOLESTEROL 34 mg/dL; LDL CHOLESTEROL,CALCULATED 36 mg/dL; LDL/HDL RATIO 1.1 (<3.6); POTASSIUM 4.5 mmol/L (3.5-4.5); SODIUM 140 mmol/L (135-145); TOTAL PROTEIN 7.4 g/dL (6.4-8.9); TRIGLYCERIDES 112 mg/dL (48-352); VLDL CHOLESTEROL 22 mg/dL
[2023-10-19 10:47] LABS: CREATININE,URINE 18.3 mg/dL
[2023-10-19 11:03] LABS: MICROALBUMIN,URINE < 0.7 mg/dL
[2023-10-19 11:23] LABS: ESTIMATED AVERAGE GLUCOSE 163 mg/dL (70-100); HEMOGLOBIN A1c% 7.3 % (4.27-6.07)
== END 2023-10-19 10:05 | disposition home or self-care (01) ==
LOC: LAB 10:04
PROVIDERS: ATTEND Internal Medicine
DX: I50.9 Heart failure, unspecified (principal); E78.5 Hyperlipidemia, unspecified; E11.42 Type 2 diabetes mellitus with diabetic polyneuropathy; I48.19 Other persistent atrial fibrillation; Z79.01 Long term (current) use of anticoagulants
CPT/HCPCS: 36415; 80053; 80061; 82043; 82570; 83036; 83721; 84443; 85025; 85610

== ENCOUNTER 2024-03-28 07:33 | Outpatient (CLI) | payer MEDICARE, OTHER ==
[2024-03-28 08:06] LABS: CREATININE,URINE 97.8 mg/dL; MICROALBUM/CREATININE RATIO,UR 16.4 ug/mg (<30.0); MICROALBUMIN,URINE 1.6 mg/dL
[2024-03-28 08:18] LABS: ALBUMIN 3.6 g/dL (3.2-5.5); ALBUMIN/GLOBULIN RATIO 1.1 (1.0-2.2); BILIRUBIN,TOTAL 0.7 mg/dL (0.2-1.0); CALCIUM 9.3 mg/dL (8.5-10.3); CREATININE 1.2 mg/dL (0.6-1.3); POTASSIUM 4.4 mmol/L (3.5-4.5); TOTAL PROTEIN 6.9 g/dL (6.4-8.9)
[2024-03-28 08:24] LABS: THYROID STIMULATING HORMONE 3.1 uIU/mL (0.34-5.60)
[2024-03-28 09:56] LABS: ESTIMATED AVERAGE GLUCOSE 189 mg/dL (70-100); HEMOGLOBIN A1c% 8.2 % (4.27-6.07)
== END 2024-03-28 07:34 | disposition home or self-care (01) ==
LOC: LAB 07:33
PROVIDERS: ATTEND Internal Medicine
DX: I50.9 Heart failure, unspecified (principal); E11.42 Type 2 diabetes mellitus with diabetic polyneuropathy; Z79.01 Long term (current) use of anticoagulants; I48.0 Paroxysmal atrial fibrillation
CPT/HCPCS: 36415; 80053; 82043; 82570; 83036; 84443; 85610

== ENCOUNTER 2024-04-18 07:42 | Outpatient (CLI) | payer MEDICARE, OTHER | END 2024-04-18 07:43 | disposition home or self-care (01) | LOC: LAB 07:42 | PROVIDERS: ATTEND Internal Medicine | DX: I48.0 Paroxysmal atrial fibrillation (principal); Z79.01 Long term (current) use of anticoagulants | CPT/HCPCS: 36416; 85610 ==

== ENCOUNTER 2024-05-22 07:42 | Outpatient (CLI) | payer MEDICARE, OTHER ==
[2024-05-22 08:17] LABS: % IRON SATURATION 20 % (20-50); CRP - C-REACTIVE PROTEIN < 0.5 mg/dL (<0.5); IRON 65 ug/dL (50-212); TOTAL IRON BINDING CAPACITY 323 ug/dL (250-450); TRANSFERRIN 231 mg/dL (203-362)
[2024-05-22 08:38] LABS: FERRITIN 26.3 ng/mL (23.9-336.2)
== END 2024-05-22 07:43 | disposition home or self-care (01) ==
LOC: LAB 07:42
PROVIDERS: ATTEND Pediatrics
DX: I48.0 Paroxysmal atrial fibrillation (principal); G25.81 Restless legs syndrome; D50.9 Iron deficiency anemia, unspecified; Z79.01 Long term (current) use of anticoagulants
CPT/HCPCS: 36415; 82728; 83540; 84466; 85610; 86140

== ENCOUNTER 2024-06-05 08:06 | Outpatient (CLI) | payer MEDICARE, OTHER | END 2024-06-05 08:07 | disposition home or self-care (01) | LOC: LAB 08:06 | PROVIDERS: ATTEND Internal Medicine | DX: I48.0 Paroxysmal atrial fibrillation (principal); Z79.01 Long term (current) use of anticoagulants | CPT/HCPCS: 36416; 85610 ==

== ENCOUNTER 2024-07-24 07:58 | Outpatient (CLI) | payer MEDICARE, OTHER | END 2024-07-24 07:59 | disposition home or self-care (01) | LOC: LAB 07:58 | PROVIDERS: ATTEND Internal Medicine | DX: I48.0 Paroxysmal atrial fibrillation (principal); Z79.01 Long term (current) use of anticoagulants | CPT/HCPCS: 36416; 85610 ==

== ENCOUNTER 2025-10-24 11:30 | Inpatient (IN) ==
--- NOTE | 2025-10-24 12:33 | ED Physician Documentation ---
PD HPI DYSPNEA Stated complaint Stated Complaint: Chief complaint Chief Complaint: General History obtained from History obtained from: Patient and Family History of Present Illness Timing - onset: How many weeks ago (He has noticed significant weight gain he states 30 to 40 pounds over the last 1 to 2 weeks but at least certainly an notable weight gain. He has generalized edema and dyspnea increasing over that timeframe. Seen twice here in the ER this week for this with increased diuretic and basic labs. ) Timing - onset during: Light activity (he states having sats to 86% with few steps and to bathroom at home. SIgnificant dyspena and work of breathing despite increased diuretic dosing the past few days. ) Timing - details: Gradual onset, Still present and Still present in ED Improved by: Rest and Sitting up Worsened by: Exertion and Laying flat Associated symptoms: Palpitations and Bilateral edema; No Fever, Cough, Hemoptysis or Chest pain / discomfort Similar symptoms before: Diagnosis (CHF) Recently seen: Emergency Dept (twice in the past few days for same symptoms, given extra diuretics in ED and increased home dosing, without improvement. ) Meds/Allgy Home Medications Ambulatory Orders Medication Instructions Recorded Confirmed atorvastatin 40 mg tablet 40 mg PO QPM 11/19/16 cholecalciferol (vitamin D3) 25 25 mcg PO BID 02/18/23 10/24/25 mcg (1,000 unit) capsule docusate sodium 100 mg capsule 100 mg PO DAILY 4 10/24/25 magnesium oxide 400 mg PO BID 10/04/2410/24 Permanent Disabled Placard 11/19/24 10/01/25 acetaminophen 325 mg tablet 325 mg PO Q4H PRN fever or pain 11/19/24 10/24/25 aspirin 81 mg tablet,delayed 81 mg PO DAILY 11/19/24 1 12/25/24 release (Adult Low Dose Aspirin) insulin NPH isoph U-100 human 100 See Rx Instructions subcut BID 11/19/24 10/01/25 unit/mL subcutaneous suspension (Humulin N NPH U-100 Insulin (isophane susp)) insulin syringe-needle U-100 1 mL 11/19/24 10/01/25 28 gauge x 1/2" nitroglycerin 0.4 mg sublingual 0.4 mg sublingual Q5M PRN chest 01/06/25 12/11/25 tablet pain #25 tabs carvedilol 25 mg tablet See Rx Instructions PO Q12H #60 03/15/25 10/24/25 tabs hydralazine 25 mg tablet 25 mg PO TID 06/05/25 blood-glucose,furniture duster,cont #1 ea 08/06/25 10/01/25 (FreeStyle Sheron 3 [place]) blood-glucose sensor (FreeStyle #6 ea 09/13/25 5 Sheron 3 Plus Sensor device) albuterol sulfate 90 mcg/actuation 1 - 2 inh inhalatio n Q4H PRN 10/04/25 10/24/25 aerosol inhaler (Ventolin HFA) shortness of breath or wheezing #8.5 grams oxycodone-acetaminophen 5 mg-325 1 tab PO Q8H PRN pain #10 tabs 10/22/25 10/24/25 mg tablet gabapentin 300 mg capsule 300 mg PO DAILY PRN leg pain 10/24/25 10/24/25 torsemide 20 mg tablet 40 mg PO DAILY 10/24/2510/14 warfarin 5 mg tablet 2.5 - 5 mg PO DAILY 10/24/25 10/24/25 Allergies Allergies Allergy/AdvReac Type Severity Reaction Status Date / Time metformin Allergy Severe GI upset Verified 10/24/25 12:22 codeine Allergy Intermediate Itching Verified 10/24/25 12:22 duloxetine (From Cymbalta) AdvReac Severe GI distress Verified 10/24/25 12:22 empagliflozin (From AdvReac Severe Decline in Verified 10/24/25 12:22 Jardiance) GFR lisinopril AdvReac Intermediate Cough Verified 10/24/25 12:22 tiotropium (From Spiriva AdvReac Intermediate Clarence weird Verified 10/24/25 12:22 with HandiHaler) PFSH Active Problems All Active Problems (Updated 10/24/25 @ 17:34 by ANGELA Barboza) Elevated TSH (Acute) DERREK (obstructive sleep apnea) (Chronic) CHF exacerbation (Acute) Generalized edema (Acute) Acute on chronic renal insufficiency (Acute) Scrotal edema (Acute) CHF (congestive heart failure) (Acute) Supratherapeutic INR (Acute) Dyspnea on exertion (Acute) Edema of scrotum (Acute) Edema, peripheral (Acute) Congestive heart failure (Acute) COPD exacerbation (Acute) Non-pressure chronic ulcer of other part of right foot with fat layer exposed (Acute) Lymphedema of both lower extremities (Acute) Non-pressure chronic ulcer of left lower leg with fat layer exposed (Acute) Anemia (Acute) Right adrenal mass (Acute) Type 2 diabetes mellitus (Acute) Non-pressure chronic ulcer of right lower leg with fat layer exposed (Acute) Abrasion of left forearm (Acute) Abrasion of right foot (Acute) Candidal intertrigo (Acute) Osseous stenosis of neural canal of lumbar region (Acute) Primary osteoarthritis of hips, bilateral (Acute) Hyperaldosteronism (Acute) Hypertensive heart disease with stage 3a chronic kidney disease (Acute) Hypertensive heart disease with CHF (Acute) Pacemaker (Acute) S/p TAVR (transcatheter aortic valve replacement), bioprosthetic (Chronic) Dupuytren contracture of right hand (Acute) COPD (chronic obstructive pulmonary disease) (Chronic 09/22/07) Osteoarthritis of shoulders, bilateral (Acute 01/04/07) Degenerative joint disease of cervical spine (Acute 11/14/1959) Arthritis of both hands (Acute 11/23/19) Permanent atrial fibrillation (Chronic) Obstructive sleep apnea on CPAP (Acute) Mixed hyperlipidemia (Chronic) BPH w urinary obs/LUTS (Chronic) Coronary artery disease (Acute) 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) Anticoagulated on warfarin (Chronic) Venous insufficiency (chronic) (peripheral) (Acute) Medical History Medical History (Updated 10/24/25 @ 17:34 by ANGELA Barboza) History of arthritis History of diabetes mellitus, type II History of COPD Hx of renal calculi 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 Chronic venous hypertension with ulcer and inflammation (11/10/22) Diverticulosis of colon (09/11/21) Anemia, iron deficiency (09/01/18) Surgical History Surgical History History of carpal tunnel surgery of right wrist Fall 2023 S/P AV zaynab ablation 04/2023 Pacemaker 12/2022, RV intracardiac pacemaker, sinus bradycardia/pauses with TAVR, @ [facility] S/P TAVR (transcatheter aortic valve replacement) 12/2022, [facility] H/O coronary angiogram 12/2022, mild disease + severe aortic stenosis Implantable loop recorder present Placed 04/2017 + removed 2019 H/O coronary angiogram 03/2017, 50% R1 lesion Status post total right knee replacement 11/2014 H/O coronary angiogram 01/2014, 50% R1 lesion Status post total left knee replacement 2012 H/O colonoscopy 11/2005, hyperplastic polyp + diverticulosis S/P cholecystectomy S/P UVPP (uvulopalatopharyngoplasty) Tracheal stenosis Reconstructive surgery History of bilateral carpal tunnel release S/P right rotator cuff repair History of arthroplasty of left shoulder S/P left knee arthroscopy ~1984, meniscus debridement S/P lumbar fusion 1979, L3 level S/P tonsillectomy Family History Family History Mother Diabetes Heart attack Father Cancer Sister High blood pressure Diabetes Social History Social History Smoking Status: Former smoker If you are a former smoker, when did you quit? (Date/Year): 1979 Number of Years Smoked: 18 How many cigarettes a day do you smoke? (20 cigarettes=1 Pk): 30 Second hand tobacco smoke exposure: No Do you dip or chew tobacco?: No Do you vape?: No Patient requests smoking cessation consult: No Initiate information on smoking cessation: No Living arrangement: At home Marital Status: Support Person: Yes Has a Durable Power of Wig Dresser for Health Care?: Yes DPOA on file?: No Has Health Care Directive?: Yes Health Care Directive on file?: No Level: Independent Home Mobility Equipment: Cane and Wheelchair Do you feel safe in your home environment?: Yes History of physical, verbal, emotional, or financial abuse?: No ETOH Use: None Substance Use: denies use Are you sexually active?: No 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 ) and abnormal body habitus (obese) and (overweight) HENMT oropharynx normal Neck/C-Spine supple Lymph no lymphadenopathy noted Respiratory abnormal respiratory effort (labored), no wheezes, rales noted (base) and (throughout) and use of accessory muscles noted (mild) Cardiovascular normal heart rate noted, rhythm abnormal (irregular), no murmur and edema noted (notable edema upper lower legs and thighs, with compressive socks lower. ) Gastrointestinal abdomen soft to palpation and distended (some general distension. Has soft tissue edema in lower abd wall.) Genitourinary no CVA tenderness and scrotum abnormal (edematous) (significant edema of scrotum to about grapefruit size and penis shaft wiht edema and clear weeping. meatus without as much edema. Mild tinea cruris. Scrotal tissue does not appear infected. ) Skin skin color normal Results Vitals Vitals: Vital Signs - 24 hr 10/24/25 12:15 10/24/25 12:40 10/24/25 12:45 Temperature 36.4 C L Temperature Source Temporal Artery Scan Pulse Rate 89 84 Respiratory Rate 20 18 19 Blood Pressure 130/74 141/66 H O2 Saturation 94 97 O2 Source Room air Room air Room air Pain Intensity 8 4 5 10/24/25 13:00 10/24/25 13:22 10/24/25 14:46 Temperature Temperature Source Pulse Rate 84 74 Respiratory Rate 19 18 Blood Pressure 134/61 H 138/70 H O2 Saturation 95 97 O2 Source Room air Room air Pain Intensity 5 5 6 10/24/25 14:49 10/24/25 14:55 10/24/25 15:15 Temperature Temperature Source Pulse Rate 80 74 Respiratory Rate 18 19 19 Blood Pressure 156/72 H 141/72 H O2 Saturation 97 96 O2 Source Room air Room air Room air Pain Intensity 6 6 5 Oxygen O2 Source Room air EKG (time done) 13:26: EKG releavant findings:: EKG personally interpreted by author of this note. Relevant findings are: Rhythm: NSR QRS: LBBB Compare to prior EKG: Unchanged from prior EKG (Sep 2024) Labs Labs: Laboratory Tests 10/24/25 10/24/25 12:40 13:49 WBC 5.9 RBC 3.59 L Hgb 9.8 L Hct 31.9 L MCV 88.9 MCH 27.3 MCHC 30.7 L RDW 20.0 H Plt Count 240 MPV 10.5 Neut # (Auto) 4.3 Lymph # (Auto) 0.8 L [place] # (Auto) 0.6 Eos # (Auto) 0.2 Baso # (Auto) 0.0 Absolute Nucleated RBC 0.00 Nucleated RBC % 0.0 PT 50.4 H INR 4.7 H* Sodium 140 Potassium 3.8 Chloride 102 Carbon Dioxide 31 Anion Gap 7.0 BUN 34 H Creatinine 1.7 H Estimated GFR (MDRD) 39 L Glucose 118 H Calcium 9.1 Phosphorus 4.0 Magnesium 1.6 L Total Bilirubin 0.8 AST 17 ALT 13 Alkaline Phosphatase 86 Troponin I High Sens 25.8 H* B-Natriuretic Peptide 508 H Total Protein 6.5 Albumin 3.6 Globulin 2.9 Albumin/Globulin Ratio 1.2 Lipase 25 Urine Color YELLOW Urine Clarity CLEAR Urine pH 5.5 Ur Specific [place] 1.010 Urine Protein NEGATIVE Urine Glucose (UA) NEGATIVE Urine Ketones NEGATIVE Urine Occult Blood NEGATIVE Urine Nitrite NEGATIVE Urine Bilirubin NEGATIVE Urine Urobilinogen 0.2 (NORMAL) Ur Leukocyte Esterase NEGATIVE Urine RBC None Seen Urine WBC 0-3 Ur Squamous Epith Cells NONE SEEN Urine Bacteria None Seen Urine Culture Comments NOT INDICATED Rads (name of study) chest xray: Relevant Findings:: Final report received and EMP independent interpretation of test (vascular congesiton c/s CHF. similar to prior recent ones. ) Interpretation: EXAM: [id number] ([id number]) PROCEDURE: XR Chest 1V INDICATIONS: dyspnea TECHNIQUE: One view of the chest was acquired. COMPARISON: 10/21/2025 FINDINGS: Surgical changes and devices: None. Lungs and pleura: No pleural effusions or pneumothorax. No consolidation. Mediastinum: Mediastinal contours appear normal. Heart size is normal. Bones and chest wall: No suspicious bony lesions. Overlying soft tissues appear unremarkable. IMPRESSION: No acute cardiopulmonary process. Reviewed by: Skyler Jj MD on 10/24/2025 1:16 PM PST PD Medical Decision Making ED course Complexity details: reviewed old records, reviewed results (His chest x-ray still shows vascular congestion. His BNP is slightly lower than it had been. Kidney function shows creatinine 1.7 which is slightly up from recent visits. Electrolytes otherwise are looking okay. His INR is supratherapeutic at 4.7. No active bleeding. chronic anemia, Hgb 9.8.. ), considered differential, d/w patient and d/w sap business intelligence consultant (Dr. Barger, hospitalist was contacted and we discussed the case. He will place the patient in observation.) ED course: This is the third visit for the patient this week for dyspnea on exertion with noted oxygen saturations in the mid 80s at home when he is ambulatory. He is at increasing difficulty walking because of scrotal edema and pain. Still having edema there which is increased and continued leg edema. Has wraps on the lower legs. Edema as noted above that and through the thighs. No facial or hand edema. His albumin and protein levels on blood tests are normal. Urine test was ordered. However it does not sound like nephrotic edema. He does have a history of CHF and takes diuretics usually. Baseline mild renal insufficiency. Baseline A-fib and is on Coumadin. He has not noticed any GI bleeding. Chronic anemia with a current hemoglobin 9.8 which is comparable to recent visit and baseline. He basically still has significant dyspnea although he does not have hypoxia here at rest. He was reluctant to walk around due to the pain in the scrotum from the edema. He was given some IV Lasix 80 mg with some output. Exam of his penis and scrotum do show significant edema with the scrotum about the size of a grapefruit. There is edema noted along the shaft of the penis with some mild weeping. No redness nor purulence to suggest infection. There is some edema in the lower abdominal wall tissue as well. He had been seen here in the ER and had some IV diuretics with urine output and had increased his home diuretic to 40 mg. He is still having similar symptoms and actually states increased scrotal edema. He has not noticed notable weight loss. Given the persistence of symptoms despite prior ER visits with diuresing IV and increasing his home medicines, I feel continued IV diuretic may be more appropriate, especially in light of his anemia and mild renal insufficiency. Discharge Plan Discharge Patient Disposition: ED Place in Observation Condition: Stable Clinical Impression: Dyspnea on exertion, Anticoagulated on warfarin, Supratherapeutic INR, CHF (congestive heart failure), Scrotal edema, Acute on chronic renal insufficiency, Generalized edema Interventions: ED Admission Assessment Last Done: 10/24/25 17:14 Vitals documented within 30 minutes of discharge?: Yes
[2025-10-24 13:12] LABS: HCT - HEMATOCRIT 31.9 % (42.0-52.0); HGB - HEMOGLOBIN 9.8 g/dL (14.0-18.0); MEAN PLATELET VOLUME 10.5 fL (7.4-11.4); NRBC ABSOLUTE COUNT (AUTO) 0.00 x10^3/uL; NUCLEATED RED BLOOD CELLS AUTO 0.0 /100WBC; PLT - PLATELET COUNT 240 10^3/uL (130-450); RED CELL DISTRIBUTION WIDTH 20.0 % (12.0-15.0)
[2025-10-24] MEDS: FUROSEMIDE 40 MG/4 ML VIAL IVP STA (13:18)
--- NOTE | 2025-10-24 13:19 | XRAY Report ---
PROCEDURE: XR Chest 1V INDICATIONS: dyspnea TECHNIQUE: One view of the chest was acquired. COMPARISON: 10/21/2025 FINDINGS: Surgical changes and devices: None. Lungs and pleura: No pleural effusions or pneumothorax. No consolidation. Mediastinum: Mediastinal contours appear normal. Heart size is normal. Bones and chest wall: No suspicious bony lesions. Overlying soft tissues appear unremarkable. IMPRESSION: No acute cardiopulmonary process. Reviewed by: Skyler Jj MD on 10/24/2025 1:16 PM PST Approved by: Skyler Jj MD on 10/24/2025 1:16 PM PST Station ID: [id number]
[2025-10-24 13:24] LABS: PT - PROTHROMBIN TIME 50.4 secs (9.9-12.6)
[2025-10-24 13:25] LABS: INR 4.7 (0.8-1.2)
[2025-10-24 13:28] LABS: ALT ALANINE AMINOTRANSFERASE 13.0 IU/L (10-60); AST ASPARTATE AMINOTRANSFERASE 17.0 IU/L (10-42); BUN - BLOOD UREA NITROGEN 34.0 mg/dL (6-20); CARBON DIOXIDE - CO2 31.0 mmol/L (21-32); CREATININE 1.7 mg/dL (0.6-1.3); GFR - MDRD 39.0 (>89)
[2025-10-24 13:36] LABS: PHOSPHORUS 4.0 mg/dL (2.5-5.0)
[2025-10-24] MEDS: HYDROmorphone 1 MG/ML CARPUJECT IVP STA (14:46)
[2025-10-24 15:17] LABS: GLUCOSE, URINE (UA) NEGATIVE (NEGATIVE); KETONES,URINE (UA) NEGATIVE (NEGATIVE); OCCULT BLOOD,URINE NEGATIVE (NEGATIVE)
[2025-10-24 15:32] LABS: SQUAMOUS EPITHELIAL CELL,UR NONE SEEN (<= Few)
--- NOTE | 2025-10-24 15:48 | HISTORY & PHYSICAL EXAMINATION ---
Chief Complaint Chief Complaint Chief Complaint: scrotal edema History of Present Illness Admitted From Admitted From:: home History Obtained From Records Reviewed: PCP notes, wound care notes, ED notes History obtained from: Patient and ex (Brit) History of Present Illness HPI Comment/Other: 80-year-old male who presents the emergency department for the third time in 4 days with complaints related to edema and shortness of breath. He states to me that he has been compliant with all of his medications. However in reviewing the notes at the time of his initial emergency department visit he had cut his diuretics in half. It seems that from that time he has been a unable to resolve his edema which has been getting worse and worse to the point that he is unable to ambulate due to significant scrotal edema. He was seen in the emergency department on 10 21, given 40 mg of Lasix and discharged to home with instruction to resume his home diuretic dosing. Then returned again on the with similar complaints, given no diuretics at that time, just treated for his scrotal pain. Presents again today because he is unable to ambulate at home. At baseline he cannot lay flat because he gets short of breath. He states he has a hospital bed at home in which he sleeps. He notes increasing dyspnea on exertion for the last several days precipitating this visit. he has been having trouble meeting his needs at home. He is barely able to get to the kitchen to get a bite to eat. He is having trouble getting to the bathroom. He is not having any cough or fever. no chest pain. Normally he is a functional adult who meets all of his own care needs. He walks independently, and drives, in fact went on a road trip to [place] with his ex- several weeks ago and did well. He has a coil winder, Dr. Reyes at [facility] who saw him about 6 months ago and was planning annual follow-up. He states he had an echocardiogram 4 to 5 months ago he believes. He is on chronic warfarin therapy for atrial fibrillation. He states he is not on a DOAC due to cost. He has a pacemaker in place and is status post TAVR in 2022. He has been seeing the wound care center for about 6 weeks now for some lower extremity wounds which he states have been improving. Socially he lives alone. He drinks very rarely, does not smoke or use other drugs. With regards to advance care planning, he has started to consider who might make his medical decisions if he is not able. He has not formalized this decision. He states it would probably be his ex- Brit or his son [place] He states that he would like to have full CODE STATUS. He does not have a POLST. Meds/Allgy Home Medications Ambulatory Orders Medication Instructions Recorded Confirmed atorvastatin 40 mg tablet 40 mg PO QPM 11/19/16 cholecalciferol (vitamin D3) 25 25 mcg PO BID 02/18/23 09/21/25 mcg (1,000 unit) capsule docusate sodium 100 mg capsule 100 mg PO DAILY 4 09/21/25 magnesium oxide 400 mg PO BID 10/04/2409/21 Permanent Disabled Placard 11/19/24 10/01/25 acetaminophen 325 mg tablet 325 mg PO Q4H PRN fever or pain 11/19/24 10/01/25 amlodipine 5 mg tablet (Norvasc) 5 mg PO QDAY 11/19/24 10/01/25 aspirin 81 mg tablet,delayed 81 mg PO QDAY 11/19/24 release (Adult Low Dose Aspirin) insulin NPH isoph U-100 human 100 See Rx Instructions subcut BID 11/19/24 10/01/25 unit/mL subcutaneous suspension (Humulin N NPH U-100 Insulin (isophane susp)) insulin syringe-needle U-100 1 mL 11/19/24 10/01/25 28 gauge x 1/2" nitroglycerin 0.4 mg sublingual 0.4 mg sublingual Q5M PRN chest 11/19/24 10/01/25 tablet pain #25 tabs warfarin 5 mg tablet 2.5 - 5 mg PO QDAY #90 tabs 12/25/24 10/22/25 carvedilol 25 mg tablet See Rx Instructions PO Q12H #60 03/15/25 10/01/25 tabs nystatin 100,000 unit/gram topical 1 applic topical QD AY #30 grams 03/15/25 10/01/25 powder albuterol sulfate 90 mcg/actuation 1 puff inhalation Q ID PRN 06/05/25 10/01/25 aerosol inhaler (Ventolin HFA) shortness of breath or wheezing #6.7 grams hydralazine 25 mg tablet 25 mg PO TID 06/05/25 nystatin-triamcinolone 100,000 1 applic topical QDAY # 60 grams 06/05/25 10/01/25 unit/gram-0.1 % topical ointment blood-glucose,financial management consultant,cont #1 ea 08/06/25 10/01/25 (FreeStyle Sheron 3 Vilonia) torsemide 20 mg tablet 40 mg (2 x 20 mg) PO QAM #18 0 tabs 08/21/25 10/01/25 blood-glucose sensor (FreeStyle #6 ea 09/13/25 5 Sheron 3 Plus Sensor device) gabapentin 300 mg capsule 300 mg PO QDAY PRN leg pain #20 09/16/25 10/01/25 caps linezolid 600 mg tablet 600 mg PO Q12H #20 tabs 09/14 12/08 albuterol sulfate 90 mcg/actuation 1 - 2 inh inhalatio n Q4H PRN 10/04/25 aerosol inhaler (Ventolin HFA) shortness of breath or wheezing #8.5 grams prednisone 20 mg tablet 60 mg (3 x 20 mg) PO DAILY 5 days 10/04/25 #15 tabs oxycodone-acetaminophen 5 mg-325 1 tab PO Q8H PRN pain #10 tabs 10/22/25 mg tablet Allergies Allergies Allergy/AdvReac Type Severity Reaction Status Date / Time metformin Allergy Severe GI upset Verified 10/24/25 12:22 codeine Allergy Intermediate Itching Verified 10/24/25 12:22 duloxetine (From Cymbalta) AdvReac Severe GI distress Verified 10/24/25 12:22 empagliflozin (From AdvReac Severe Decline in Verified 10/24/25 12:22 Jardiance) GFR lisinopril AdvReac Intermediate Cough Verified 10/24/25 12:22 tiotropium (From Spiriva AdvReac Intermediate Fertile weird Verified 10/24/25 12:22 with HandiHaler) PFSH Active Problems All Active Problems (Updated 10/24/25 @ 17:34 by ANGELA Barboza) Elevated TSH (Acute) DERREK (obstructive sleep apnea) (Chronic) CHF exacerbation (Acute) Generalized edema (Acute) Acute on chronic renal insufficiency (Acute) Scrotal edema (Acute) CHF (congestive heart failure) (Acute) Supratherapeutic INR (Acute) Dyspnea on exertion (Acute) Edema of scrotum (Acute) Edema, peripheral (Acute) Congestive heart failure (Acute) COPD exacerbation (Acute) Non-pressure chronic ulcer of other part of right foot with fat layer exposed (Acute) Lymphedema of both lower extremities (Acute) Non-pressure chronic ulcer of left lower leg with fat layer exposed (Acute) Anemia (Acute) Right adrenal mass (Acute) Type 2 diabetes mellitus (Acute) Non-pressure chronic ulcer of right lower leg with fat layer exposed (Acute) Abrasion of left forearm (Acute) Abrasion of right foot (Acute) Candidal intertrigo (Acute) Osseous stenosis of neural canal of lumbar region (Acute) Primary osteoarthritis of hips, bilateral (Acute) Hyperaldosteronism (Acute) Hypertensive heart disease with stage 3a chronic kidney disease (Acute) Hypertensive heart disease with CHF (Acute) Pacemaker (Acute) S/p TAVR (transcatheter aortic valve replacement), bioprosthetic (Chronic) Dupuytren contracture of right hand (Acute) COPD (chronic obstructive pulmonary disease) (Chronic 09/22/07) Osteoarthritis of shoulders, bilateral (Acute 01/04/07) Degenerative joint disease of cervical spine (Acute 11/14/1959) Arthritis of both hands (Acute 11/23/19) Permanent atrial fibrillation (Chronic) Obstructive sleep apnea on CPAP (Acute) Mixed hyperlipidemia (Chronic) BPH w urinary obs/LUTS (Chronic) Coronary artery disease (Acute) 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) Anticoagulated on warfarin (Chronic) Venous insufficiency (chronic) (peripheral) (Acute) Medical History Medical History (Updated 10/24/25 @ 17:34 by ANGELA Barboza) History of arthritis History of diabetes mellitus, type II History of COPD Hx of renal calculi 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 Chronic venous hypertension with ulcer and inflammation (11/10/22) Diverticulosis of colon (09/11/21) Anemia, iron deficiency (09/01/18) Surgical History Surgical History History of carpal tunnel surgery of right wrist Fall 2023 S/P AV zaynab ablation 04/2023 Pacemaker 12/2022, RV intracardiac pacemaker, sinus bradycardia/pauses with TAVR, @ [facility] S/P TAVR (transcatheter aortic valve replacement) 12/2022, [facility] H/O coronary angiogram 12/2022, mild disease + severe aortic stenosis Implantable loop recorder present Placed 04/2017 + removed 2019 H/O coronary angiogram 03/2017, 50% R1 lesion Status post total right knee replacement 11/2014 H/O coronary angiogram 01/2014, 50% R1 lesion Status post total left knee replacement 2012 H/O colonoscopy 11/2005, hyperplastic polyp + diverticulosis S/P cholecystectomy S/P UVPP (uvulopalatopharyngoplasty) Tracheal stenosis Reconstructive surgery History of bilateral carpal tunnel release S/P right rotator cuff repair History of arthroplasty of left shoulder S/P left knee arthroscopy ~1984, meniscus debridement S/P lumbar fusion 1979, L3 level S/P tonsillectomy Family History Family History Mother Diabetes Heart attack Father Cancer Sister High blood pressure Diabetes Social History Social History Smoking Status: Former smoker If you are a former smoker, when did you quit? (Date/Year): 1979 Number of Years Smoked: 18 How many cigarettes a day do you smoke? 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 meets all of his own needs. Exam Exam Vital Signs: Vital Signs x48h Temp Pulse Resp BP Pulse Ox 10/24/25 17:00 70 20 140/59 H 95 10/24/25 15:15 74 19 141/72 H 96 10/24/25 14:55 19 10/24/25 14:49 80 18 156/72 H 97 10/24/25 13:22 74 18 138/70 H 97 10/24/25 13:00 84 19 134/61 H 95 10/24/25 12:45 84 19 141/66 H 97 10/24/25 12:40 18 10/24/25 12:15 36.4 C L 89 20 130/74 94 Constitutional appears ill HENMT normocephalic, hearing grossly normal bilaterally, nasal mucous membranes normal and oral mucous membranes normal (MM slightly dry) poor dentition Eyes conjunctivae normal and no scleral icterus Neck/C-Spine trachea midline Lymph no lymphadenopathy noted Chest inspection of chest normal Respiratory breath sounds equal bilaterally decreased breath sounds at the bases. no rales/wheeze Cardiovascular normal heart rate noted and no murmur severe peripheral edema Gastrointestinal umbilical hernia, abdominal wall edema, pitting, obese abdomen Genitourinary severe weeping scrotal edema, with edema of the foreskin. Extremities severe edema, compression wraps in place to the knees, pitting edema of the thighs. Neurology regional marketing director II-XII intact and GCS 15 Psychiatry mental status grossly normal, oriented x3, thought process normal, cooperative and affect normal Skin skin color normal and no rash Conclusion/Plan Problem List (1) CHF exacerbation: Plan: Presents to the ED for the 3rd time in 4 days for complaints related to worsening edema and shortness of breath. he is not able to ambulate or care for himself at home. He has edema the extends up onto his torso and onto his arms. This seems to have been triggered by changing his diuretic dosing, and he is just not catching up. discussed with Dr Mendez in the ED and decision was made to admit to OBS status for treatment of this severe peripheral edema. This patient is not able to walk or meet his own care needs at home. Troponin added on to admission labs is 25. c/w current condition, but will trend to ensure not rising. Follow-up shows troponin essentially unchanged at 23.2. I will not repeat this measurement. BNP is not worse than recent trends, in fact he is improved, but clinical condition warrants admission. 10/04/25 10/21/25 10/24/25 15:45 16:20 12:40 B-Natriuretic Peptide 722 H 975 H 508 H Last cardiology note in chart is March 2024, showing EF as of Nov 2023 35-40%. Taken off SGLT 2 inh due to declining GFR. He is on Coreg. He has been on torsemide for years. Discharge to home would result in worsening of his condition. by admission, he will get aggressive diuresis and monitoring of his renal function and potassium. I am hoping to improve his functional status such that he can discharge to home again. I am giving him an additional 80mg LAsix IVP approx 6 hours after dose given in the ED ([id number] tonight), then an additional I will monitor electrolytes, fluid status and renal function in the AM to assess for discharge. Qualifiers: Heart failure type: unspecified Qualified Code(s): I50.9 - Heart failure, unspecified (2) Hyperaldosteronism: Plan: I see a vague hx of this in the chart. I do not see that the patient is on a K sparing diuretic. note is made of an adrenal nodule. This certainly could be affecting his fluid balance. He has multiple comorbidities that could be associated with hyperaldosteronism. checked fill records and has no record of being prescribed spironolactone. Will discuss further with patient and ex . (3) Supratherapeutic INR: Plan: Anticoagulated on warfarin. He has refused DOAC due to cost. Anticoag coagulated for history of atrial fibrillation. INR on admission 4.7. For this reason I will hold warfarin. I will not give the patient chemoprophylaxis for DVTs. I will repeat INR in the a.m.He is not having any bleeding complications at this time. (4) Acute on chronic renal insufficiency: Plan: Baseline creatinine at the upper limits of normal for our lab. Seems to have worsened over the last 6 weeks or so. 1.7 on admission this evening. I will be monitoring his renal function again in the AM. (5) Type 2 diabetes mellitus: Plan: Most recent hemoglobin A1c was 3 months ago at 7.4%. He is on insulin therapy at home. He takes Novolin 14 units in the a.m. and 9 units in the p.m. I will place him on glargine 10 units every afternoon with sliding scale insulin while he was here. I will repeat INR in the AM. Qualifiers: Diabetes mellitus complication status: with other specified complication Diabetes mellitus exterminator termite insulin use: with care home use Qualified Code(s): E11.69 - Type 2 diabetes mellitus with other specified complication; Z79.4 - rodent exterminator (current) use of insulin (6) Pacemaker: Plan: Has a leadless Micra pacemaker in place. follows with Dr Reyse, cardiology at [facility]. no current issues. Planning echocardiogram this admission. Placed 12/2022. (7) S/p TAVR (transcatheter aortic valve replacement), bioprosthetic: Plan: no issues outstanding with this. states unremarkable followup with cardiology. no notes scanned into the chart. Planning echocardiogram this admission. placed 12/2022 (8) Obstructive sleep apnea on CPAP: Plan: discussed with patient. He states that he faithfully uses his CPAP machine. Brit (ex ) at bedside states that she will make sure it gets here for him to use overnight. (9) Elevated TSH: Plan: TSH 7.26 at last primary care visit. It was noted that the thyroid hormone was within normal limits. Plan was to recheck in 6 weeks. I have ordered repeat TSH for a.m. labs. Plan I have spent 90 minutes in the care of this patient today. This includes time [id number], review and ordering of diagnostic imaging and laboratory studies and consultation with other providers. Monitoring the patient's signs symptoms, evaluation of medication effectiveness and patient's response to treatment. Lab Results Lab results reviewed: Yes 10/24/25 12:40 10/24/25 12:40 EKG Results EKG Interpreted Independently: Yes EKG Comparison: Unchanged from prior EKG Core Measures DVT/VTE - Prophylaxis VTE/DVT Device ordered at admit?: No Not Ordered - Medical Reason: Contraindicated (Lower extremity wounds) VTE/DVT Prophylaxis med ordered at admit?: No Not Ordered - Medical Reason: Not indicated (Supratherapeutic INR)
[2025-10-24] MEDS ORDERED: ONDANSETRON ODT 4 MG TABLET TL PRN (17:06)
[2025-10-24] MEDS: INSULIN LISPRO 300 UNIT/3 ML PEN SUBQ SCH (17:20)
[2025-10-24] MEDS: SODIUM CHLORIDE FLUSH 0.9% 10 ML SYRINGE IVP SCH (17:23)
[2025-10-24] MEDS: oxyCODONE 5 MG TABLET PO PRN (20:57)
[2025-10-24] MEDS: INSULIN GLARGINE-YFGN 300 UNIT/3 ML PEN SUBQ SCH (20:58)
[2025-10-24] MEDS: NYSTATIN POWDER 15 GM TOP SCH (20:58)
[2025-10-24] MEDS: SODIUM CHLORIDE FLUSH 0.9% 10 ML SYRINGE IVP PRN (21:00)
[2025-10-24] MEDS: FUROSEMIDE 40 MG/4 ML VIAL IVP ONE (21:00)
[2025-10-25 05:30] LABS: HCT - HEMATOCRIT 31.1 % (42.0-52.0); HGB - HEMOGLOBIN 9.5 g/dL (14.0-18.0); MEAN PLATELET VOLUME 10.2 fL (7.4-11.4); NRBC ABSOLUTE COUNT (AUTO) 0.00 x10^3/uL; NUCLEATED RED BLOOD CELLS AUTO 0.0 /100WBC; PLT - PLATELET COUNT 211 10^3/uL (130-450); RED CELL DISTRIBUTION WIDTH 20.1 % (12.0-15.0)
[2025-10-25 05:36] LABS: INR 4.4 (0.8-1.2); PT - PROTHROMBIN TIME 48.0 secs (9.9-12.6)
[2025-10-25 05:54] LABS: BUN - BLOOD UREA NITROGEN 31.0 mg/dL (6-20); CARBON DIOXIDE - CO2 34.0 mmol/L (21-32); CREATININE 1.6 mg/dL (0.6-1.3); GFR - MDRD 42.0 (>89)
[2025-10-25] MEDS: FUROSEMIDE 40 MG/4 ML VIAL IVP SCH (06:18)
[2025-10-25 07:22] LABS: PLATELET ESTIMATE, MANUAL NORMAL (130-450,000) (NORMAL); PLATELET MORPHOLOGY NORMAL APPEARANCE (NORMAL); SLIDE REVIEW? Indicated
[2025-10-25 07:23] LABS: RBC MORPHOLOGY (MULTIPLE) 1+ ANISOCYTOSIS (NORMAL); WBC MORPHOLOGY (MULTIPLE) NORMAL APPEARANCE (NORMAL)
[2025-10-25 10:03] LABS: ESTIMATED AVERAGE GLUCOSE 177 mg/dL (70-100); HEMOGLOBIN A1c% 7.8 % (4.27-6.07)
--- NOTE | 2025-10-25 10:28 | PROVIDER PROGRESS NOTE ---
Subjective Prog Note Date Prog Note Date: 10/25/25 Subjective Subjective: He feels so much better today. he realizes that he can breathe better, and his legs and abdomen feel better. he still has much tenderness in his scrotum, but even that is improving. Irena completed this AM. His ex Brit has been in to visit this AM. Current Medications Current Medications Current Medications: Current Medications Generic Name Dose Route Start Last Admin Trade Name Freq PRN Reason Stop Dose Admin Acetaminophen 650 mg 10/24/25 17:06 Acetaminophen 325 Mg Tablet PO Q4HR PRN Pain 1 to 4, or Fever Furosemide 80 mg 10/25/25 06:00 10/25/25 06:18 Furosemide 40 Mg/4 Ml Vial IVP 10/26/25 14:01 80 mg BIDDIURETIC SHERMAN Administration Insulin Glargine-yfgn 10 unit 10/24/25 21:00 10/24/25 20:58 Insulin Glargine-Yfgn 300 Unit/3 Ml Pen SUBQ 10 unit QPM SHREMAN Administration Insulin Human Lispro 1 - 5 unit 10/24/25 17:06 10/25/25 08:23 Insulin Lispro 300 Unit/3 Ml Pen SUBQ 1 unit 0800,1200,1700,2100 SHERMAN Administration Protocol Nystatin 1 applic 10/24/25 21:00 10/25/25 08:25 Nystatin Powder 15 Gm TOP 1 applic BID SHERMAN Administration Ondansetron HCl 4 mg 10/24/25 17:06 Ondansetron Odt 4 Mg Tablet TL Q6HR PRN Nausea / Vomiting Oxycodone HCl 5 mg 10/24/25 17:06 10/25/25 04:46 Oxycodone 5 Mg Tablet PO 5 mg Q4HR PRN Administration Pain 5 to 7 Potassium Chloride 40 meq 10/25/25 11:00 Potassium Chloride 20 Meq Tablet PO DAILYWM SHERMAN Sodium Chloride 10 ml 10/24/25 17:06 10/24/25 21:00 Sodium Chloride Flush 0.9% 10 Ml Syringe IVP 10 ml PRN PRN Administration NEEDED PER PROVIDER ORDERS Sodium Chloride 10 ml 10/24/25 17:06 10/25/25 08:31 Sodium Chloride Flush 0.9% 10 Ml Syringe IVP 10 ml 0100,0900,1700 SHERMAN Administration Objective Vital Signs/Intake & Output Reviewed Vital Signs: Yes Vital Signs: Vital Signs x48h Temp Pulse Resp BP Pulse Ox 10/25/25 04:41 36.7 C 72 20 146/70 H 92 Intake & Output: Intake & Output 10/22/25 10/23/25 10/24/25 10/25/25 23:59 23:59 23:59 23:59 Intake Total 310 / 310 240 / 240 Output Total 1900 / 1900 1900 / 1900 Balance -1590 / -1590 -1660 / -1660 Weight (kg) 144 kg Objective General Appearance: positive No acute distress and Alert Eyes Bilateral: positive Conjunctivae nml ENT: positive ENT inspection nml Neck: positive Nml inspection Respiratory: positive No respiratory distress and Other (BS diminished. IS pull >1500) Cardiovascular: positive Irregularly irregular and Systolic murmur Abdomen: positive Non-tender and Other (edema better. non incarcerated umb hernia, scrotal edema is improved, but still present. ) Back: positive Nml inspection Skin: positive Color nml Extremities: positive Pedal edema (markedly decreased. He has wrinkling of the skin of his lower extremities. ) Neurologic/Psychiatric: positive Oriented x3 and Mood/affect nml Lab Results 10/25/25 04:43 10/25/25 04:43 Other Labs: Lab Results x24hrs 10/25/25 10/25/25 10/24/25 Range/Units 07:55 04:43 20:43 WBC 5.2 (4.8-10.8) x10^3/uL RBC 3.53 L (4.70-6.10) 10^6/uL Hgb 9.5 L (14.0-18.0) g/dL Hct 31.1 L (42.0-52.0) % MCV 88.1 (80.0-94.0) fL MCH 26.9 L (27.0-31.0) pg MCHC 30.5 L (32.0-36.0) g/dL RDW 20.1 H (12.0-15.0) % Plt Count 211 (130-450) 10^3/uL MPV 10.2 (7.4-11.4) fL Neut # (Auto) 3.5 (1.5-6.6) 10^3/uL Lymph # (Auto) 1.0 L (1.5-3.5) 10^3/uL [place] # (Auto) 0.5 (0.0-1.0) 10^3/uL Eos # (Auto) 0.1 (0.0-0.7) 10^3/uL Baso # (Auto) 0.0 (0.0-0.1) 10^3/uL Absolute Nucleated RBC 0.00 x10^3/uL Nucleated RBC % 0.0 /100WBC Manual Slide Review Indicated WBC Morphology NORMAL APPEARANCE (NORMAL) Platelet Estimate NORMAL (130-450,000) (NORMAL) Platelet Morphology NORMAL APPEARANCE (NORMAL) RBC Morph Micro Appear 1+ ANISOCYTOSIS (NORMAL) PT 48.0 H (9.9-12.6) secs INR 4.4 H (0.8-1.2) Sodium 141 (135-145) mmol/L Potassium 3.4 L (3.5-4.5) mmol/L Chloride 100 L (101-111) mmol/L Carbon Dioxide 34 H (21-32) mmol/L Anion Gap 7.0 (6-13) BUN 31 H (6-20) mg/dL Creatinine 1.6 H (0.6-1.3) mg/dL Estimated GFR (MDRD) 42 L (>89) Glucose 160 H (74-104) mg/dL POC Whole Bld Glucose 155 138 (70-100) mg/dL Calcium 9.0 (8.5-10.3) mg/dL Phosphorus (2.5-5.0) mg/dL Magnesium 1.5 L (1.7-2.3) mg/dL Total Bilirubin (0.2-1.0) mg/dL AST (10-42) IU/L ALT (10-60) IU/L Alkaline Phosphatase (42-121) IU/L Troponin I High Sens (2.3-19.7) ng/L B-Natriuretic Peptide (5-100) pg/mL Total Protein (6.4-8.9) g/dL Albumin (3.2-5.5) g/dL Globulin (2.1-4.2) g/dL Albumin/Globulin Ratio (1.0-2.2) Lipase (11-82) U/L TSH 2.09 (0.34-5.60) uIU/mL Urine Color Urine Clarity (CLEAR) Urine pH (5.0-7.5) PH Ur Specific [place] (1.002-1.030) Urine Protein (NEGATIVE) mg/dL Urine Glucose (UA) (NEGATIVE) mg/dL Urine Ketones (NEGATIVE) mg/dL Urine Occult Blood (NEGATIVE) Urine Nitrite (NEGATIVE) Urine Bilirubin (NEGATIVE) Urine Urobilinogen (NORMAL) E.U./dL Ur Leukocyte Esterase (NEGATIVE) Urine RBC (0-5) /HPF Urine WBC (0-3) /HPF Ur Squamous Epith Cells (<= Few) Urine Bacteria (None Seen) /HPF Urine Culture Comments 10/24/25 10/24/25 10/24/25 Range/Units 17:19 16:49 13:49 WBC (4.8-10.8) x10^3/uL RBC (4.70-6.10) 10^6/uL Hgb (14.0-18.0) g/dL Hct (42.0-52.0) % MCV (80.0-94.0) fL MCH (27.0-31.0) pg MCHC (32.0-36.0) g/dL RDW (12.0-15.0) % Plt Count (130-450) 10^3/uL MPV (7.4-11.4) fL Neut # (Auto) (1.5-6.6) 10^3/uL Lymph # (Auto) (1.5-3.5) 10^3/uL [place] # (Auto) (0.0-1.0) 10^3/uL Eos # (Auto) (0.0-0.7) 10^3/uL Baso # (Auto) (0.0-0.1) 10^3/uL Absolute Nucleated RBC x10^3/uL Nucleated RBC % /100WBC Manual Slide Review WBC Morphology (NORMAL) Platelet Estimate (NORMAL) Platelet Morphology (NORMAL) RBC Morph Micro Appear (NORMAL) PT (9.9-12.6) secs INR (0.8-1.2) Sodium (135-145) mmol/L Potassium (3.5-4.5) mmol/L Chloride (101-111) mmol/L Carbon Dioxide (21-32) mmol/L Anion Gap (6-13) BUN (6-20) mg/dL Creatinine (0.6-1.3) mg/dL Estimated GFR (MDRD) (>89) Glucose (74-104) mg/dL POC Whole Bld Glucose 126 (70-100) mg/dL Calcium (8.5-10.3) mg/dL Phosphorus (2.5-5.0) mg/dL Magnesium (1.7-2.3) mg/dL Total Bilirubin (0.2-1.0) mg/dL AST (10-42) IU/L ALT (10-60) IU/L Alkaline Phosphatase (42-121) IU/L Troponin I High Sens 23.2 H* (2.3-19.7) ng/L B-Natriuretic Peptide (5-100) pg/mL Total Protein (6.4-8.9) g/dL Albumin (3.2-5.5) g/dL Globulin (2.1-4.2) g/dL Albumin/Globulin Ratio (1.0-2.2) Lipase (11-82) U/L TSH (0.34-5.60) uIU/mL Urine Color YELLOW Urine Clarity CLEAR (CLEAR) Urine pH 5.5 (5.0-7.5) PH Ur Specific [place] 1.010 (1.002-1.030) Urine Protein NEGATIVE (NEGATIVE) mg/dL Urine Glucose (UA) NEGATIVE (NEGATIVE) mg/dL Urine Ketones NEGATIVE (NEGATIVE) mg/dL Urine Occult Blood NEGATIVE (NEGATIVE) Urine Nitrite NEGATIVE (NEGATIVE) Urine Bilirubin NEGATIVE (NEGATIVE) Urine Urobilinogen 0.2 (NORMAL) (NORMAL) E.U./dL Ur Leukocyte Esterase NEGATIVE (NEGATIVE) Urine RBC None Seen (0-5) /HPF Urine WBC 0-3 (0-3) /HPF Ur Squamous Epith Cells NONE SEEN (<= Few) Urine Bacteria None Seen (None Seen) /HPF Urine Culture Comments NOT INDICATED 10/24/25 Range/Units 12:40 WBC 5.9 (4.8-10.8) x10^3/uL RBC 3.59 L (4.70-6.10) 10^6/uL Hgb 9.8 L (14.0-18.0) g/dL Hct 31.9 L (42.0-52.0) % MCV 88.9 (80.0-94.0) fL MCH 27.3 (27.0-31.0) pg MCHC 30.7 L (32.0-36.0) g/dL RDW 20.0 H (12.0-15.0) % Plt Count 240 (130-450) 10^3/uL MPV 10.5 (7.4-11.4) fL Neut # (Auto) 4.3 (1.5-6.6) 10^3/uL Lymph # (Auto) 0.8 L (1.5-3.5) 10^3/uL [place] # (Auto) 0.6 (0.0-1.0) 10^3/uL Eos # (Auto) 0.2 (0.0-0.7) 10^3/uL Baso # (Auto) 0.0 (0.0-0.1) 10^3/uL Absolute Nucleated RBC 0.00 x10^3/uL Nucleated RBC % 0.0 /100WBC Manual Slide Review WBC Morphology (NORMAL) Platelet Estimate (NORMAL) Platelet Morphology (NORMAL) RBC Morph Micro Appear (NORMAL) PT 50.4 H (9.9-12.6) secs INR 4.7 H* (0.8-1.2) Sodium 140 (135-145) mmol/L Potassium 3.8 (3.5-4.5) mmol/L Chloride 102 (101-111) mmol/L Carbon Dioxide 31 (21-32) mmol/L Anion Gap 7.0 (6-13) BUN 34 H (6-20) mg/dL Creatinine 1.7 H (0.6-1.3) mg/dL Estimated GFR (MDRD) 39 L (>89) Glucose 118 H (74-104) mg/dL POC Whole Bld Glucose (70-100) mg/dL Calcium 9.1 (8.5-10.3) mg/dL Phosphorus 4.0 (2.5-5.0) mg/dL Magnesium 1.6 L (1.7-2.3) mg/dL Total Bilirubin 0.8 (0.2-1.0) mg/dL AST 17 (10-42) IU/L ALT 13 (10-60) IU/L Alkaline Phosphatase 86 (42-121) IU/L Troponin I High Sens 25.8 H* (2.3-19.7) ng/L B-Natriuretic Peptide 508 H (5-100) pg/mL Total Protein 6.5 (6.4-8.9) g/dL Albumin 3.6 (3.2-5.5) g/dL Globulin 2.9 (2.1-4.2) g/dL Albumin/Globulin Ratio 1.2 (1.0-2.2) Lipase 25 (11-82) U/L TSH (0.34-5.60) uIU/mL Urine Color Urine Clarity (CLEAR) Urine pH (5.0-7.5) PH Ur Specific [place] (1.002-1.030) Urine Protein (NEGATIVE) mg/dL Urine Glucose (UA) (NEGATIVE) mg/dL Urine Ketones (NEGATIVE) mg/dL Urine Occult Blood (NEGATIVE) Urine Nitrite (NEGATIVE) Urine Bilirubin (NEGATIVE) Urine Urobilinogen (NORMAL) E.U./dL Ur Leukocyte Esterase (NEGATIVE) Urine RBC (0-5) /HPF Urine WBC (0-3) /HPF Ur Squamous Epith Cells (<= Few) Urine Bacteria (None Seen) /HPF Urine Culture Comments Assessment/Plan Problem List (1) CHF exacerbation: Impression: He has had improvement overnight. his symptoms are not gone but improved. he feels that he can breathe better and notices the lack of induration in his abdominal wall. Echo completed this AM, read is pending. I have asked for a standing weight, as bed scale has been very inconsistent (last 4 weights recorded as [id number]). He is negative 3.2 L for this admission. He cannot dc to home until he is able to ambulate household distances. I think he needs additional diuresis with monitoring of electrolytes and renal function. I do not think this is safe to do in the outpatient environment. he is not medically clear for dc. Mild Hypokalemia this AM, 3.3. I am giving him 40mEq oral KCl. I have ordered BMP for the AM. I am planning for him to get a total of 160mg LAsix today in divided doses. He will lose more potassium. Magnesium also low, 1.5. oral repletion has been ordered. 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 Qualifiers: Heart failure type: unspecified Qualified Code(s): I50.9 - Heart failure, unspecified (2) Hyperaldosteronism: Impression: Discussed with patient. he recalls that in the past he had seen endocrinology at [facility], then that provider stopped services. He was not followed for a period of about 5 years, then saw endocrine at [facility] in August. he relates to me that they said there was nothing to do. He tells me that many years ago, he was on spironolactone, but that it was abruptly dc'ed. he does not recall what adverse effect he had. It is possibly an effect of worsening of his heart failure associated with this hyperaldosteronism that is causing his severe, worsening edema. Await echo result. May have impairment of aldosterone escape phenomenon which is worsening his edema. Patient states that he feels that he has had an insidious onset of his symptoms over months, with acute worsening over a week or so. diuresis has been effective. I have requested endocrinology clinic note. (3) Supratherapeutic INR: Impression: He has not been eating well at home, and continues to take his warfarin. INR not dropping quickly, but no bleeding complications. Last BM was 10/23. (4) Acute on chronic renal insufficiency: Impression: renal function stable in the face of aggressive diuresis. continue to attempt euvolemia. I have ordered BMP for the AM. (5) Type 2 diabetes mellitus: Impression: Most recent hemoglobin A1c was 3 months ago at 7.4%. He is on insulin therapy at home. He takes Novolin 14 units in the a.m. and 9 units in the p.m. I will place him on glargine 10 units every afternoon with sliding scale insulin while he was here. Blood sugar control has been appropriate. Hgb A1C does not indicate the need for escalation outpatient insulin tx. Laboratory Tests 10/24/25 10/25/25 10/25/25 20:43 04:43 07:55 POC Whole Bld Glucose 138 155 Hemoglobin A1c % 7.8 H 10/25/25 11:42 POC Whole Bld Glucose 206 Hemoglobin A1c % Qualifiers: Diabetes mellitus complication status: with other specified complication Diabetes mellitus terminologist insulin use: with usp use Qualified Code(s): E11.69 - Type 2 diabetes mellitus with other specified complication; Z79.4 - penitentiary (current) use of insulin (6) Pacemaker: Impression: Has a leadless Micra pacemaker in place. follows with Dr Reyes, cardiology at [facility]. no current issues. Echo done, not read. Pacer placed 12/2022. I have requested most recent cardiology note. (7) S/p TAVR (transcatheter aortic valve replacement), bioprosthetic: Impression: no issues outstanding with this. states unremarkable followup with cardiology. no notes scanned into the chart. placed 12/2022. Echo read is pendding . I have requested most recent cardiology note from [facility]. (8) Obstructive sleep apnea on CPAP: Impression: Complaint with CPAP (9) Elevated TSH: Impression: TSH 7.26 at last primary care visit. It was noted that the thyroid hormone was within normal limits. Plan was to recheck in 6 weeks. repeat is normal. Laboratory Tests 10/25/25 04:43 TSH 2.09 This patient's diagnosis and treatment plan was discussed this AM with attending physician as a part of multi disciplinary rounding meeting. I have spent 53minutes in the care of this patient today. This includes time [id number], review and ordering of diagnostic imaging and laboratory studies. Monitoring the patient's signs symptoms, evaluation of medication effectiveness and patient's response to treatment, and exclusive of time spent in ACP conversation.
[2025-10-25] MEDS: MAGNESIUM OXIDE 400 MG TABLET PO SCH (11:59)
[2025-10-25] MEDS: POTASSIUM CHLORIDE 20 MEQ TABLET PO SCH (11:59)
--- NOTE | 2025-10-25 12:57 | ADVANCE CARE PLANNING NOTE ---
Advance Care Planning Planning Encounter Date: 10/25/25 Purpose: to complete a POLST Parties in Attendance: Patient, and Keyla Blum PA-C Decisional Capacity of the Patient: alert and oriented to self, place, time and situation. 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 He tells me about his service in the [employer], in [facility], as well as [place]. When I asked him how he made money in his adult life, he laughs at me, and tells me he never made much money. 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 He has a son, Mo, who is 51. he tells me that he is wrapped up in his own life iwth a child, but does see the patient briefly about 2x weekly. He and his ex Brit have been lifelong friends- since they were 20. They still enjoy traveling together. They really "get" each other. He knows that Brit would want their son to be his medical decision maker, but he feels like Brit knows him best. She has been with him for most of his life and their friendship is his closest relationship in life. he does not feel that his son should have to take that burden as surrogate medical decision maker. Objective/Medical Story: The patient states that he knows he has multiple medical problems, and he realizes that his time is getting short. He is not ready to be done with life. I explained to him that with his health conditions and status, the best that he can hope for from a resusitative event is to live in a facility and be dependent on others. He tells me "I have been there and I do not like it", but he tells me that it would be OK with him, if that is what is needed. He feels that if there is any life left to live, he would like to be here. He wants to be kept alive at all costs. Goals of Care: Full code/full care Plan: POLST was completed today, designating Brit Alonzo as his POA, and that he wants to remain full code. Intubation OK. Code Status: Attempt Resuscitation Time spent on advance care plannin minutes
--- NOTE | 2025-10-25 13:05 | PHARMACY PROGRESS NOTE ---
Best Possible Medication History Admit Date and Time: 10/25/25 1058 Home Medications Medication Instructions Recorded Confirmed Type atorvastatin 40 mg tablet 40 mg PO QPM 11/19/16 History cholecalciferol (vitamin D3) 25 25 mcg PO BID 02/18/23 10/24/25 History mcg (1,000 unit) capsule docusate sodium 100 mg capsule 100 mg PO DAILY 4 10/24/25 History magnesium oxide 400 mg PO BID 10/04/2410/24 History Permanent Disabled Placard 11/19/24 10/01/25 History acetaminophen 325 mg tablet 325 mg PO Q4H PRN fever or pain 11/19/24 10/24/25 History aspirin 81 mg tablet,delayed 81 mg PO DAILY 11/19/24 1 12/25/24 History release (Adult Low Dose Aspirin) insulin NPH isoph U-100 human 100 See Rx Instructions subcut BID 11/19/24 10/25/25 History unit/mL subcutaneous suspension (Humulin N NPH U-100 Insulin (isophane susp)) insulin syringe-needle U-100 1 mL 11/19/24 10/01/25 H istory 28 gauge x 1/2" nitroglycerin 0.4 mg sublingual 0.4 mg sublingual Q5M PRN chest 11/19/24 10/24/25 Rx tablet pain #25 tabs carvedilol 25 mg tablet See Rx Instructions PO Q12H #60 03/15/25 10/24/25 Rx tabs hydralazine 25 mg tablet 25 mg PO TID 06/05/25 History blood-glucose,oracle iam consultant,cont #1 ea 08/06/25 10/01/25 Rx (FreeStyle Sheron 3 [place]) blood-glucose sensor (FreeStyle #6 ea 09/13/25 5 Rx Sheron 3 Plus Sensor device) albuterol sulfate 90 mcg/actuation 1 - 2 inh inhalatio n Q4H PRN 10/04/25 10/24/25 Rx aerosol inhaler (Ventolin HFA) shortness of breath or wheezing #8.5 grams oxycodone-acetaminophen 5 mg-325 1 tab PO Q8H PRN pain #10 tabs 10/22/25 10/24/25 Rx mg tablet torsemide 20 mg tablet 40 mg PO DAILY 10/24/2510/14 History warfarin 5 mg tablet 2.5 - 5 mg PO DAILY 10/24/25 10/24/25 History Processed by: Pharmacy Medications reviewed in ED?: Yes Medication History completed: Yes Patient Interview: Completed Secondary Source(s): Insurance records [facility] Statement: As the person ultimately responsible for medication therapy, providers are able to order a medication from an existing home medication list in [facility] via the "Reconcile Routine" prior to Confirmation of that medication by senior office support assistant sosa. Such practice is discouraged except when the physician, in their clinical judgment, deems that a medical need exists for a medication without regard to previous use.
[2025-10-26 05:22] LABS: HCT - HEMATOCRIT 32.7 % (42.0-52.0); HGB - HEMOGLOBIN 9.7 g/dL (14.0-18.0); MEAN PLATELET VOLUME 10.2 fL (7.4-11.4); NRBC ABSOLUTE COUNT (AUTO) 0.00 x10^3/uL; NUCLEATED RED BLOOD CELLS AUTO 0.0 /100WBC; PLT - PLATELET COUNT 207 10^3/uL (130-450); RED CELL DISTRIBUTION WIDTH 19.8 % (12.0-15.0)
[2025-10-26 05:31] LABS: INR 3.3 (0.8-1.2); PT - PROTHROMBIN TIME 35.9 secs (9.9-12.6)
[2025-10-26 05:47] LABS: BUN - BLOOD UREA NITROGEN 30.0 mg/dL (6-20); CARBON DIOXIDE - CO2 35.0 mmol/L (21-32); CREATININE 1.5 mg/dL (0.6-1.3); GFR - MDRD 45.0 (>89)
[2025-10-26] MEDS: COD LIVER OIL/ZINC OXIDE 113 GM TUBE TOP PRN (05:51)
[2025-10-26] MEDS: oxyCODONE 5 MG TABLET PO PRN (10:11)
--- NOTE | 2025-10-26 13:48 | PROVIDER PROGRESS NOTE ---
Subjective Prog Note Date Prog Note Date: 10/26/25 Subjective Subjective: He continues to feel incrementally better, but refuses to try to get out of bed. He says it is too painful to try. PT is not here today to evaluate. We have not been able to get an accurate weight. Current Medications Current Medications Current Medications: Current Medications Generic Name Dose Route Start Last Admin Trade Name Freq PRN Reason Stop Dose Admin Acetaminophen 650 mg 10/24/25 17:06 Acetaminophen 325 Mg Tablet PO Q4HR PRN Pain 1 to 4, or Fever Diclofenac Sodium 2 gm 10/26/25 07:11 Diclofenac Sodium 1% Gel 50 Gm Tube TOP QID PRN scrotal pain Furosemide 80 mg 10/25/25 06:00 10/26/25 13:36 Furosemide 40 Mg/4 Ml Vial IVP 10/26/25 14:01 80 mg BIDDIURETIC SHERMAN Administration Insulin Glargine-yfgn 10 unit 10/24/25 21:00 10/25/25 20:53 Insulin Glargine-Yfgn 300 Unit/3 Ml Pen SUBQ 10 unit QPM SHERMAN Administration Insulin Human Lispro 1 - 5 unit 10/24/25 17:06 10/26/25 11:17 Insulin Lispro 300 Unit/3 Ml Pen SUBQ 1 unit 0800,1200,1700,2100 SHERMAN Administration Protocol Magnesium Oxide 400 mg 10/25/25 11:00 10/26/25 08:00 Magnesium Oxide 400 Mg Tablet PO 400 mg DAILYWM SHERMAN Administration Nystatin 1 applic 10/24/25 21:00 10/26/25 08:01 Nystatin Powder 15 Gm TOP 1 applic BID SHERMAN Administration Ondansetron HCl 4 mg 10/24/25 17:06 Ondansetron Odt 4 Mg Tablet TL Q6HR PRN Nausea / Vomiting Oxycodone HCl 10 mg 10/26/25 07:12 10/26/25 10:11 Oxycodone 5 Mg Tablet PO 10 mg Q4HR PRN Administration Severe Pain (Level 7-10) Potassium Chloride 40 meq 10/25/25 11:00 10/26/25 08:00 Potassium Chloride 20 Meq Tablet PO 40 meq DAILYWM SHERMAN Administration Sodium Chloride 10 ml 10/24/25 17:06 10/26/25 05:32 Sodium Chloride Flush 0.9% 10 Ml Syringe IVP 10 ml PRN PRN Administration NEEDED PER PROVIDER ORDERS Sodium Chloride 10 ml 10/24/25 17:06 10/26/25 08:01 Sodium Chloride Flush 0.9% 10 Ml Syringe IVP 10 ml 0100,0900,1700 SHERMAN Administration Zinc Oxide 113 gm 10/26/25 05:35 10/26/25 05:51 Cod Liver Oil/Zinc Oxide 113 Gm Tube TOP 1 applic PRN PRN Administration Skin Care Objective Vital Signs/Intake & Output Reviewed Vital Signs: Yes Vital Signs: Vital Signs x48h Temp Pulse Resp BP Pulse Ox 10/26/25 10:59 36.7 C 72 16 125/56 L 84 L 10/26/25 07:55 36.7 C 80 12 142/67 H 91 L Intake & Output: Intake & Output 10/23/25 10/24/25 10/25/25 10/26/25 23:59 23:59 23:59 23:59 Intake Total 310 / 310 1580 / 1580 350 / 350 Output Total 1900 / 1900 4550 / 4550 1700 / 1700 Balance -1590 / -1590 -2970 / -2970 -1350 / -1350 Weight (kg) 144 kg Objective General Appearance: positive No acute distress and Alert Eyes Bilateral: positive Conjunctivae nml ENT: positive ENT inspection nml Neck: positive Nml inspection Respiratory: positive No respiratory distress and Other (BS diminished. IS pull >1500) Cardiovascular: positive Irregularly irregular and Systolic murmur Abdomen: positive Non-tender and Other (edema better. non incarcerated umb hernia, scrotal edema is improved, but still present. ) Back: positive Nml inspection Skin: positive Color nml Extremities: positive Pedal edema (markedly decreased. He has wrinkling of the skin of his lower extremities. ) Neurologic/Psychiatric: positive Oriented x3 and Mood/affect nml Lab Results 10/26/25 04:59 10/26/25 04:59 Other Labs: Lab Results x24hrs 10/26/25 10/26/25 10/26/25 Range/Units 10:58 07:45 04:59 WBC 5.8 (4.8-10.8) x10^3/uL RBC 3.67 L (4.70-6.10) 10^6/uL Hgb 9.7 L (14.0-18.0) g/dL Hct 32.7 L (42.0-52.0) % MCV 89.1 (80.0-94.0) fL MCH 26.4 L (27.0-31.0) pg MCHC 29.7 L (32.0-36.0) g/dL RDW 19.8 H (12.0-15.0) % Plt Count 207 (130-450) 10^3/uL MPV 10.2 (7.4-11.4) fL Neut # (Auto) 3.8 (1.5-6.6) 10^3/uL Lymph # (Auto) 1.1 L (1.5-3.5) 10^3/uL [place] # (Auto) 0.7 (0.0-1.0) 10^3/uL Eos # (Auto) 0.1 (0.0-0.7) 10^3/uL Baso # (Auto) 0.0 (0.0-0.1) 10^3/uL Absolute Nucleated RBC 0.00 x10^3/uL Nucleated RBC % 0.0 /100WBC PT 35.9 H (9.9-12.6) secs INR 3.3 H (0.8-1.2) Sodium 140 (135-145) mmol/L Potassium 3.4 L (3.5-4.5) mmol/L Chloride 98 L (101-111) mmol/L Carbon Dioxide 35 H (21-32) mmol/L Anion Gap 7.0 (6-13) BUN 30 H (6-20) mg/dL Creatinine 1.5 H (0.6-1.3) mg/dL Estimated GFR (MDRD) 45 L (>89) Glucose 107 H (74-104) mg/dL POC Whole Bld Glucose 179 92 (70-100) mg/dL Calcium 8.9 (8.5-10.3) mg/dL Magnesium 1.4 L (1.7-2.3) mg/dL 10/25/25 10/25/25 Range/Units 20:28 16:46 WBC (4.8-10.8) x10^3/uL RBC (4.70-6.10) 10^6/uL Hgb (14.0-18.0) g/dL Hct (42.0-52.0) % MCV (80.0-94.0) fL MCH (27.0-31.0) pg MCHC (32.0-36.0) g/dL RDW (12.0-15.0) % Plt Count (130-450) 10^3/uL MPV (7.4-11.4) fL Neut # (Auto) (1.5-6.6) 10^3/uL Lymph # (Auto) (1.5-3.5) 10^3/uL [place] # (Auto) (0.0-1.0) 10^3/uL Eos # (Auto) (0.0-0.7) 10^3/uL Baso # (Auto) (0.0-0.1) 10^3/uL Absolute Nucleated RBC x10^3/uL Nucleated RBC % /100WBC PT (9.9-12.6) secs INR (0.8-1.2) Sodium (135-145) mmol/L Potassium (3.5-4.5) mmol/L Chloride (101-111) mmol/L Carbon Dioxide (21-32) mmol/L Anion Gap (6-13) BUN (6-20) mg/dL Creatinine (0.6-1.3) mg/dL Estimated GFR (MDRD) (>89) Glucose (74-104) mg/dL POC Whole Bld Glucose 183 143 (70-100) mg/dL Calcium (8.5-10.3) mg/dL Magnesium (1.7-2.3) mg/dL Assessment/Plan Problem List (1) CHF exacerbation: Impression: He is negative 5.9 L for this admission. He cannot dc to home until he is able to ambulate household distances. I think he needs additional diuresis with monitoring of electrolytes and renal function. I do not think this is safe to do in the outpatient environment. he is not medically clear for dc. Mild Hypokalemia this AM, 3.4. I am giving him 40mEq oral KCl. I have ordered BMP for the AM. I am planning for him to get a total of 160mg LAsix today in divided doses. He will lose more potassium. Magnesium also low, 1.4, he is getting Max oxide 400mg daily. 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 He refused PT yesterday, none avaiable today, try again tomorrow. Qualifiers: Heart failure type: unspecified Qualified Code(s): I50.9 - Heart failure, unspecified (2) Hyperaldosteronism: Impression: Discussed with patient. he recalls that in the past he had seen endocrinology at [facility], then that provider stopped services. He was not followed for a period of about 5 years, then saw endocrine at [facility] in August. he relates to me that they said there was nothing to do. He tells me that many years ago, he was on spironolactone, but that it was abruptly dc'ed. he does not recall what adverse effect he had. It is possibly an effect of worsening of his heart failure associated with this hyperaldosteronism that is causing his severe, worsening edema. Await echo result. May have impairment of aldosterone escape phenomenon which is worsening his edema. Patient states that he feels that he has had an insidious onset of his symptoms over months, with acute worsening over a week or so. diuresis has been effective. I have requested endocrinology clinic note. I have not gotten that yet, and it is the weekend. (3) Supratherapeutic INR: Impression: INR 3.3 today from 4.4 yesterday. I am giving him one mg warfarin this afternoon. Recheck with AM labs. (4) Acute on chronic renal insufficiency: Impression: renal function stable in the face of aggressive diuresis. continue to attempt euvolemia. I have ordered BMP for the AM. Laboratory Tests 10/04/25 10/21/25 10/24/25 15:45 16:20 12:40 Creatinine 1.6 H 1.4 H 1.7 H 10/25/25 10/26/25 04:43 04:59 Creatinine 1.6 H 1.5 H (5) Type 2 diabetes mellitus: Impression: Most recent hemoglobin A1c was 3 months ago at 7.4% repeat this admit 7.8%. He is on insulin therapy at home. He takes Novolin 14 units in the a.m. and 9 units in the p.m. I will place him on glargine 10 units every afternoon with sliding scale insulin while he is here. Blood sugar control has been appropriate. Hgb A1C does not indicate the need for escalation outpatient insulin tx. Laboratory Tests 10/26/25 10/26/25 10/26/25 07:45 10:58 16:38 POC Whole Bld Glucose 92 179 196 Qualifiers: Diabetes mellitus complication status: with other specified complication Diabetes mellitus intermediate insulin use: with intermediate use Qualified Code(s): E11.69 - Type 2 diabetes mellitus with other specified complication; Z79.4 - FDC (current) use of insulin (6) Pacemaker: Impression: Has a leadless Micra pacemaker in place. follows with Dr Reyes, cardiology at [facility]. no current issues. Echo done, not read. Pacer placed 12/2022. I have requested most recent cardiology note. (7) S/p TAVR (transcatheter aortic valve replacement), bioprosthetic: Impression: no issues outstanding with this. states unremarkable followup with cardiology. no notes scanned into the chart. placed 12/2022. Echo read is pending I have requested most recent cardiology note from [facility]. (8) Obstructive sleep apnea on CPAP: Impression: Complaint with CPAP (9) Elevated TSH: Impression: TSH 7.26 at last primary care visit. It was noted that the thyroid hormone was within normal limits. Plan was to recheck in 6 weeks. repeat is normal. 10/25/25 04:43 TSH 2.09 This patient's diagnosis and treatment plan was discussed this AM with attending physician as a part of multi disciplinary rounding meeting. I have spent 48 minutes in the care of this patient today. This includes time [id number], review and ordering of diagnostic imaging and laboratory studies. Monitoring the patient's signs symptoms, evaluation of medication effectiveness and patient's response to treatment, and exclusive of time spent in ACP conversation.
[2025-10-26] MEDS: WARFARIN 1 MG TABLET PO SCH (14:44)
[2025-10-26] MEDS: ACETAMINOPHEN 325 MG TABLET PO PRN (20:32)
[2025-10-26] MEDS: DICLOFENAC SODIUM 1% GEL 50 GM TUBE TOP PRN (20:34)
--- NOTE | 2025-10-27 04:58 | ECHO Report ---
Version: 1 Study ID: [id number] [id number] Adult Echocardiogram Report Name: ANNETTE RUBIO Study Date: 10/25/2025, 7: 46 AM BP: 146 / 70 mmHg Patient Location: [facility] [place]^[id number] HR: 70 bpm : 1945 (MM/DD/YYYY) Gender: Male Height: 73 in Age: 80 Years Weight: 317 lb BSA: 2.6 m² Reason For Study: CHF exac History: Pacer, TAVR-12/27/2022, 29 mm, SN: [id number], Model [id number] Previous study 11/20/2016 (pre-TAVR EF 60-65%) Interpretation Summary There is mild concentric increase in the wall thickness of the left ventricle. The visual left ventricular ejection fraction is estimated at 60 to 65%. The right ventricular systolic function is mildly decreased. There is mild mitral stenosis. Mean gradient of 9 mm Hg at HR of 72 bpm, MVA 1.7 cm2 The pulmonary artery systolic pressure is severely increased. The right ventricular systolic pressure is 73mmHg Left Ventricle: The left ventricle is normal in size. There is mild concentric increase in the wall thickness of the left ventricle. No thrombus seen in the left ventricle. The visual left ventricular ejection fraction is estimated at 60 to 65%. The interventricular septum is flattened in diastole ('D' shaped left ventricle) consistent with right ventricular volume overload. Right Ventricle: The right ventricle is normal size. The right ventricular systolic function is mildly decreased. Aortic Valve: The aortic valve peak velocity is 167 cm/sec. The aortic valve maximum pressure gradient is 11.2 mmHg. The aortic valve mean pressure gradient is 5.9 mmHg. The calculated aortic valve area is 2.1 cm2. The prosthetic aortic valve is not well visualized. The mean gradient is normal for this prosthetic aortic valve. No aortic paravalvular regurgitation is present. Mitral Valve: The mitral valve leaflets are moderately calcified. Moderate mitral annular calcification is present. There is mild mitral stenosis. Mean gradient of 9 mm Hg at HR of 72 bpm, MVA 1.7 cm2. There is mild mitral regurgitation. Tricuspid Valve: The tricuspid valve is structurally normal. There is no tricuspid stenosis. Moderate tricuspid regurgitation present. Pulmonic Valve: The pulmonic valve is visually normal in structure and function. There is no pulmonic valvular stenosis. Trace pulmonic valvular regurgitation is present. Left Atrium: The left atrium is severely dilated. Right Atrium: The right atrium is severely dilated. The inferior vena cava is mildly dilated with mildly decreased collapse with sniff (estimated right atrial pressure 10-15mmHg). Atrial Septum: The interatrial septum appears normal, without evidence of shunt by 2D imaging and color Doppler. Aorta: The ascending aorta is normal in size. The aortic arch is not well seen. The sinuses of Valsalva are normal in size. Pulmonary Artery: The pulmonary artery is normal size. The pulmonary artery systolic pressure is severely increased. Inferior vena cava dynamics indicate moderately elevated right atrial pressures. The right ventricular systolic pressure is 73mmHg. Pericardium/Pleural Space: A small pericardial effusion is present. Left Ventricle IVSd: 1.21 cm LVIDd: 4.7 cm LVPWd: 1.17 cm LVIDs: 3.7 cm ESV(sp4-el): 156.2 ml Atria LA dimension: 6.3 cm LAV(MOD-sp4): 163.3 ml LAV(MOD-sp2): 155.0 ml Aortic Valve LVOT diam: 1.96 cm LV V1 mean P.13 mmHg LV V1 mean: 67.5 cm/sec LV V1 VTI: 23.1 cm Ao V2 VTI: 32.9 cm Ao mean P.9 mmHg Ao V2 mean: 109.6 cm/sec LV V1 max: 99.3 cm/sec LV V1 max P.9 mmHg Ao max P.2 mmHg Ao V2 max: 167.3 cm/sec Mitral Valve MV max P.4 mmHg MV V2 max: 246.8 cm/sec MV mean P.0 mmHg MV V2 mean: 134.8 cm/sec MV V2 VTI: 69.3 cm Tricuspid Valve TR max P.5 mmHg TR max abi: 395.4 cm/sec TV max P.5 mmHg Aorta Ao root diam: 2.29 cm MMode/2D Measurements & Calculations Ao root diam: 2.29 cm BMI: 41.8 kilograms/m² BSA([facility]): 2.8 m² ESV(sp4-el): 156.2 ml IVSd: 1.21 cm LA A4C-A/L: 33.3 cm² LA dimension: 6.3 cm LA ESV-A/L: 141.4 ml LA Vol Index: 26.6 ml/m² LAV(MOD-sp2): 155.0 ml LAV(MOD-sp4): 163.3 ml LVIDd: 4.7 cm LVIDs: 3.7 cm LVOT diam: 1.96 cm LVPWd: 1.17 cm RA A4Cs: 32.4 cm² Doppler Measurements & Calculations Ao max P.2 mmHg Ao mean P.9 mmHg Ao V2 max: 167.3 cm/sec Ao V2 mean: 109.6 cm/sec Ao V2 VTI: 32.9 cm LV V1 max: 99.3 cm/sec LV V1 max P.9 mmHg LV V1 mean: 67.5 cm/sec LV V1 mean P.13 mmHg LV V1 VTI: 23.1 cm MV max P.4 mmHg MV mean P.0 mmHg MV V2 max: 246.8 cm/sec MV V2 mean: 134.8 cm/sec MV V2 VTI: 69.3 cm PA max P.2 mmHg PA V2 max: 102.0 cm/sec TR max P.5 mmHg TR max abi: 395.4 cm/sec TV max P.5 mmHg Other Measurements & Calculations Ao root area: 4.1 cm² LOPEZ(I,D): 2.12 cm² LOPEZ(V,D): 1.79 cm² EDV(Teich): 101.2 ml EF(sp-el): 50.0 % EF(Teich): 42.6 % ESV(Teich): 58.1 ml FS: 20.9 % LVOT area: 3.0 cm² MVA(VTI): 1.01 cm² SV(LVOT): 69.6 ml MD Leonor Damon 10/27/2025, 4: 57 AM Ordering Physician: Keyla Blum Referring Physician: Bryan Mendez Performed By: [facility]
[2025-10-27] MEDS: FUROSEMIDE 40 MG/4 ML VIAL IVP SCH (05:21)
[2025-10-27 05:43] LABS: HCT - HEMATOCRIT 31.3 % (42.0-52.0); HGB - HEMOGLOBIN 9.2 g/dL (14.0-18.0); MEAN PLATELET VOLUME 10.1 fL (7.4-11.4); NRBC ABSOLUTE COUNT (AUTO) 0.00 x10^3/uL; NUCLEATED RED BLOOD CELLS AUTO 0.0 /100WBC; PLT - PLATELET COUNT 162 10^3/uL (130-450); RED CELL DISTRIBUTION WIDTH 19.9 % (12.0-15.0)
[2025-10-27 06:03] LABS: INR 2.5 (0.8-1.2); PT - PROTHROMBIN TIME 27.4 secs (9.9-12.6)
[2025-10-27 06:04] LABS: BUN - BLOOD UREA NITROGEN 34.0 mg/dL (6-20); CARBON DIOXIDE - CO2 37.0 mmol/L (21-32); CREATININE 1.6 mg/dL (0.6-1.3); GFR - MDRD 42.0 (>89)
[2025-10-27] MEDS: MAGNESIUM OXIDE 400 MG TABLET PO SCH (08:12)
--- NOTE | 2025-10-27 13:37 | PT Plan of Care ---
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 MEDICAL/SURGICAL HISTORY Medical History (Updated 10/26/25 @ 04:03 by Fany Melton RN) History of ventricular tachycardia DDD (degenerative disc disease), lumbar Erectile dysfunction Hypertension Diverticulosis Venous stasis CKD (chronic kidney disease), stage III History of arthritis History of diabetes mellitus, type II History of COPD Hx of renal calculi 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 Chronic venous hypertension with ulcer and inflammation (11/10/22) Diverticulosis of colon (09/11/21) Anemia, iron deficiency (09/01/18) Surgical History History of carpal tunnel surgery of right wrist Fall 2023 S/P AV zaynab ablation 04/2023 Pacemaker 12/2022, RV intracardiac pacemaker, sinus bradycardia/pauses with TAVR, @ [facility] S/P TAVR (transcatheter aortic valve replacement) 12/2022, [facility] H/O coronary angiogram 12/2022, mild disease + severe aortic stenosis Implantable loop recorder present Placed 04/2017 + removed 2019 H/O coronary angiogram 03/2017, 50% R1 lesion Status post total right knee replacement 11/2014 H/O coronary angiogram 01/2014, 50% R1 lesion Status post total left knee replacement 2012 H/O colonoscopy 11/2005, hyperplastic polyp + diverticulosis S/P cholecystectomy S/P UVPP (uvulopalatopharyngoplasty) Tracheal stenosis Reconstructive surgery History of bilateral carpal tunnel release S/P right rotator cuff repair History of arthroplasty of left shoulder S/P left knee arthroscopy ~1984, meniscus debridement S/P lumbar fusion 1979, L3 level S/P tonsillectomy BALANCE/FUNCTIONAL RESULTS Sitting Balance: Fair Standing Balance: Poor Tinetti Composite Score (Balance + Gait): 9 Tinetti Assessment Interpretation: High Fall Risk ASSESSMENT Assessment: The pt is a 80 y/o M who has had multiple recent ED visits and arrived to the ED on 10/24/25 due to SOB and pain from LE and scrotal edema limiting his mobility and safety in his home. He was hospitalized with CHF exacerbation. PMH includes pacemaker, B TKA's, B TSA's, TAVR, a-fib. Please see chart for complete medical hx. The pt was received resting supine in bed while RN and FACTORY MAINTENANCE MANAGER were performing tennille-care. He presented today with fair B UE and LE strength, impaired standing balance, poor activity tolerance, and significant scrotal pain all of which greatly limited his tolerance during functional mobility requiring 1-2 person assist for all mobility. His overall tolerance throughout this assessment was limited by weakness, fatigue, and pain. RN was present and assisting throughout the entire assessment due to the pt's functional limitations. At this time recommend continued skilled PT intervention while in the acute setting and DC to SNF for further rehab once pt medically stable as he is functioning far below his baseline level of Ind. This plan was discussed with the pt and he stated that he would prefer to DC home with services instead of going to a SNF. When asked if he felt he could manage at home in his current state he replied, "no". At the end of the session the pt was sitting up in a chair with call light in reach, chair alarm in place and on, and all needs met while RN was setting up his lunch tray. RN, TECHNICAL SALES SPECIALIST, and PA all updated on pt's status and DC rec. PATIENT/FAMILY GOALS Patient/Family Goals: To be able to move without pain GOALS Improve supine to sit to:: Minimal Assist Improve sit to stand to:: Minimal Assist Improve pivot transfer ability to:: Minimal Assist Improve sit to supine to:: Minimal Assist Improve gait ability to:: Min A Advance Assistive Device to:: Front Wheeled Walker Increase distance walked to (in feet):: 25 Improve Sitting Balance to:: Good PLAN Frequency: 1-2x/day Duration: Until discharge DISCHARGE RECOMMENDATIONS Discharge Location: Longterm Facility Support/Services Needed: With assist DC Equipment Recommended: Front wheeled walker Transport Needs at Discharge: Josey
--- NOTE | 2025-10-27 15:39 | PROVIDER PROGRESS NOTE ---
Subjective Prog Note Date Prog Note Date: 10/27/25 Subjective Subjective: He was able to get out of bed to the chair today with PT. He denies complaints today, has been seen by PT and recommendation is for SNF. Current Medications Current Medications Current Medications: Current Medications Generic Name Dose Route Start Last Admin Trade Name Freq PRN Reason Stop Dose Admin Acetaminophen 650 mg 10/24/25 17:06 10/26/25 20:32 Acetaminophen 325 Mg Tablet PO 650 mg Q4HR PRN Administration Pain 1 to 4, or Fever Diclofenac Sodium 2 gm 10/26/25 07:11 10/27/25 12:58 Diclofenac Sodium 1% Gel 50 Gm Tube TOP 2 gm QID PRN Administration scrotal pain Furosemide 80 mg 10/27/25 06:00 10/27/25 12:54 Furosemide 40 Mg/4 Ml Vial IVP 80 mg BIDDIURETIC SHERMAN Administration Insulin Glargine-yfgn 10 unit 10/24/25 21:00 10/26/25 21:10 Insulin Glargine-Yfgn 300 Unit/3 Ml Pen SUBQ 10 unit QPM SHERMAN Administration Insulin Human Lispro 1 - 5 unit 10/24/25 17:06 10/27/25 11:50 Insulin Lispro 300 Unit/3 Ml Pen SUBQ 2 unit 0800,1200,1700,2100 SHERMAN Administration Protocol Magnesium Oxide 800 mg 10/27/25 08:00 10/27/25 08:12 Magnesium Oxide 400 Mg Tablet PO 800 mg DAILYWM SHERMAN Administration Nystatin 1 applic 10/24/25 21:00 10/27/25 08:13 Nystatin Powder 15 Gm TOP 1 applic BID SHERMAN Administration Ondansetron HCl 4 mg 10/24/25 17:06 Ondansetron Odt 4 Mg Tablet TL Q6HR PRN Nausea / Vomiting Oxycodone HCl 10 mg 10/26/25 07:12 10/27/25 11:00 Oxycodone 5 Mg Tablet PO 10 mg Q4HR PRN Administration Severe Pain (Level 7-10) Polyethylene Glycol 17 gm 10/27/25 12:00 10/27/25 11:49 Polyethylene Glycol 3350 17 Gm Packet PO 17 gm DAILY SHERMAN Administration Potassium Chloride 40 meq 10/25/25 11:00 10/27/25 08:12 Potassium Chloride 20 Meq Tablet PO 40 meq DAILYWM SHERMAN Administration Sodium Chloride 10 ml 10/24/25 17:06 10/26/25 05:32 Sodium Chloride Flush 0.9% 10 Ml Syringe IVP 10 ml PRN PRN Administration NEEDED PER PROVIDER ORDERS Sodium Chloride 10 ml 10/24/25 17:06 10/27/25 08:14 Sodium Chloride Flush 0.9% 10 Ml Syringe IVP 10 ml 0100,0900,1700 SHERMAN Administration Warfarin Sodium 1 mg 10/26/25 14:00 10/27/25 13:06 Warfarin 1 Mg Tablet PO 1 mg QDWARFARIN SHERMAN Administration Zinc Oxide 113 gm 10/26/25 05:35 10/26/25 20:32 Cod Liver Oil/Zinc Oxide 113 Gm Tube TOP 1 applic PRN PRN Administration Skin Care Objective Vital Signs/Intake & Output Reviewed Vital Signs: Yes Vital Signs: Vital Signs x48h Temp Pulse Resp BP Pulse Ox 10/27/25 11:10 36.6 C 72 12 159/68 H 88 L 10/27/25 08:00 71 12 146/68 H 92 Intake & Output: Intake & Output 10/24/25 10/25/25 10/26/25 10/27/25 23:59 23:59 23:59 23:59 Intake Total 310 / 310 1580 / 1580 1422 / 1422 450 / 450 Output Total 1900 / 1900 4550 / 4550 3300 / 3300 2275 / 2275 Balance -1590 / -1590 -2970 / -2970 -1878 / -1878 -1825 / -1825 Weight (kg) 144 kg 135.216 kg Objective General Appearance: positive No acute distress and Alert Eyes Bilateral: positive Conjunctivae nml ENT: positive ENT inspection nml Neck: positive Nml inspection Respiratory: positive No respiratory distress and Other (BS diminished. ) Cardiovascular: positive Irregularly irregular and Systolic murmur Abdomen: positive Non-tender and Other (edema better. non incarcerated umb hernia, scrotal edema is improved, but still present, improves daily) Back: positive Nml inspection Skin: positive Color nml Extremities: positive Pedal edema (none) Neurologic/Psychiatric: positive Oriented x3 and Mood/affect nml Lab Results 10/27/25 05:00 10/27/25 05:00 Other Labs: Lab Results x24hrs 12/14/25 12/14/25 12/14/25 Range/Units 11:01 07:56 05:00 WBC 5.5 (4.8-10.8) x10^3/uL RBC 3.51 L (4.70-6.10) 10^6/uL Hgb 9.2 L (14.0-18.0) g/dL Hct 31.3 L (42.0-52.0) % MCV 89.2 (80.0-94.0) fL MCH 26.2 L (27.0-31.0) pg MCHC 29.4 L (32.0-36.0) g/dL RDW 19.9 H (12.0-15.0) % Plt Count 162 (130-450) 10^3/uL MPV 10.1 (7.4-11.4) fL Neut # (Auto) 3.5 (1.5-6.6) 10^3/uL Lymph # (Auto) 1.1 L (1.5-3.5) 10^3/uL [place] # (Auto) 0.7 (0.0-1.0) 10^3/uL Eos # (Auto) 0.2 (0.0-0.7) 10^3/uL Baso # (Auto) 0.0 (0.0-0.1) 10^3/uL Absolute Nucleated RBC 0.00 x10^3/uL Nucleated RBC % 0.0 /100WBC PT 27.4 H (9.9-12.6) secs INR 2.5 H (0.8-1.2) Sodium 139 (135-145) mmol/L Potassium 3.4 L (3.5-4.5) mmol/L Chloride 97 L (101-111) mmol/L Carbon Dioxide 37 H (21-32) mmol/L Anion Gap 5.0 L (6-13) BUN 34 H (6-20) mg/dL Creatinine 1.6 H (0.6-1.3) mg/dL Estimated GFR (MDRD) 42 L (>89) Glucose 128 H (74-104) mg/dL POC Whole Bld Glucose 198 118 (70-100) mg/dL Calcium 8.3 L (8.5-10.3) mg/dL Magnesium 1.5 L (1.7-2.3) mg/dL 10/26/25 10/26/25 Range/Units 20:28 16:38 WBC (4.8-10.8) x10^3/uL RBC (4.70-6.10) 10^6/uL Hgb (14.0-18.0) g/dL Hct (42.0-52.0) % MCV (80.0-94.0) fL MCH (27.0-31.0) pg MCHC (32.0-36.0) g/dL RDW (12.0-15.0) % Plt Count (130-450) 10^3/uL MPV (7.4-11.4) fL Neut # (Auto) (1.5-6.6) 10^3/uL Lymph # (Auto) (1.5-3.5) 10^3/uL [place] # (Auto) (0.0-1.0) 10^3/uL Eos # (Auto) (0.0-0.7) 10^3/uL Baso # (Auto) (0.0-0.1) 10^3/uL Absolute Nucleated RBC x10^3/uL Nucleated RBC % /100WBC PT (9.9-12.6) secs INR (0.8-1.2) Sodium (135-145) mmol/L Potassium (3.5-4.5) mmol/L Chloride (101-111) mmol/L Carbon Dioxide (21-32) mmol/L Anion Gap (6-13) BUN (6-20) mg/dL Creatinine (0.6-1.3) mg/dL Estimated GFR (MDRD) (>89) Glucose (74-104) mg/dL POC Whole Bld Glucose 179 196 (70-100) mg/dL Calcium (8.5-10.3) mg/dL Magnesium (1.7-2.3) mg/dL Assessment/Plan Problem List (1) CHF exacerbation: Impression: He is negative 8.2 L for this admission. He cannot dc to home until he is able to ambulate household distances. Was seen by PT today, and recommendation was made for SNF. I think he needs additional diuresis with monitoring of electrolytes and renal function. I do not think this is safe to do in the outpatient environment. he is not medically clear for dc. I will be changing his home diuretic dosing on dc. Echocardiogram read is pending Continues to have mild hypokalemia despite repletion. I have ordered BMP for the AM. i am continuing with aggressive diuresis and increasing KCl dose to BID. He will lose more potassium. Magnesium also low, 1.5, he is getting Max oxide 400mg daily, increased to BID PT for SNF. will consult social work for this. Qualifiers: Heart failure type: unspecified Qualified Code(s): I50.9 - Heart failure, unspecified (2) Hyperaldosteronism: Impression: Discussed with patient. he recalls that in the past he had seen endocrinology at [facility], then that provider stopped services. He was not followed for a period of about 5 years, then saw endocrine at [facility] in August. he relates to me that they said there was nothing to do. He tells me that many years ago, he was on spironolactone, but that it was abruptly co'ed. he does not recall what adverse effect he had. It is possibly an effect of worsening of his heart failure associated with this hyperaldosteronism that is causing his severe, worsening edema. Await echo result. May have impairment of aldosterone escape phenomenon which is worsening his edema. Patient states that he feels that he has had an insidious onset of his symptoms over months, with acute worsening over a week or so. diuresis has been effective. I have requested endocrinology clinic note. I have not gotten that yet, and it is the weekend. Will pursue on Tuesday AM (3) Supratherapeutic INR: Impression: INR 2.5 today from 3.3 yesterday. I have asked pharmacy to dose his warfarin. He is getting one mg again today. (4) Acute on chronic renal insufficiency: Impression: renal function stable in the face of aggressive diuresis. continue to attempt euvolemia. I have ordered BMP for the AM. 10/04/25 10/21/25 10/24/25 15:45 16:20 12:40 Creatinine 1.6 H 1.4 H 1.7 H 10/25/25 10/26/25 04:43 04:59 Creatinine 1.6 H 1.5 H 10/27/25 05:00 Creatinine 1.6 H (5) Type 2 diabetes mellitus: Impression: Most recent hemoglobin A1c was 3 months ago at 7.4% repeat this admit 7.8%. He is on insulin therapy at home. He takes Novolin 14 units in the a.m. and 9 units in the p.m. I will place him on glargine 10 units every afternoon with sliding scale insulin while he is here. Blood sugar control has been appropriate. Hgb A1C does not indicate the need for escalation outpatient insulin tx. 10/26/25 10/26/25 10/27/25 16:38 20:28 07:56 POC Whole Bld Glucose 196 179 118 10/27/25 11:01 POC Whole Bld Glucose 198 He is on low SSI Qualifiers: Diabetes mellitus complication status: with other specified complication Diabetes mellitus adjunct faculty for medical terminology insulin use: with longterm use Qualified Code(s): E11.69 - Type 2 diabetes mellitus with other specified complication; Z79.4 - terminal operations supervisor (current) use of insulin (6) Pacemaker: Impression: Has a leadless Micra pacemaker in place. follows with Dr Reyes, cardiology at [facility]. no current issues. Echo done, not read. Pacer placed 12/2022. I have requested most recent cardiology note. (7) S/p TAVR (transcatheter aortic valve replacement), bioprosthetic: Impression: no issues outstanding with this. states unremarkable followup with cardiology. no notes scanned into the chart. placed 12/2022. Echo read is pending I have requested most recent cardiology note from [facility]. (8) Obstructive sleep apnea on CPAP: Impression: Complaint with CPAP (9) Elevated TSH: Impression: TSH 7.26 at last primary care visit. It was noted that the thyroid hormone was within normal limits. Plan was to recheck in 6 weeks. repeat is normal. 10/25/25 04:43 TSH 2.09 This patient's diagnosis and treatment plan was discussed this AM with attending physician as a part of multi disciplinary rounding meeting. I have spent 39 minutes in the care of this patient today. This includes time [id number], review and ordering of diagnostic imaging and laboratory studies. Monitoring the patient's signs symptoms, evaluation of medication effectiveness and patient's response to treatment.
[2025-10-28] MEDS: SODIUM CHLORIDE 0.65% NASAL SPRAY NAS PRN (01:08)
[2025-10-28 04:45] LABS: HCT - HEMATOCRIT 31.8 % (42.0-52.0); HGB - HEMOGLOBIN 9.6 g/dL (14.0-18.0); MEAN PLATELET VOLUME 10.0 fL (7.4-11.4); NRBC ABSOLUTE COUNT (AUTO) 0.00 x10^3/uL; NUCLEATED RED BLOOD CELLS AUTO 0.0 /100WBC; PLT - PLATELET COUNT 155 10^3/uL (130-450); RED CELL DISTRIBUTION WIDTH 19.5 % (12.0-15.0)
[2025-10-28 05:04] LABS: BUN - BLOOD UREA NITROGEN 37.0 mg/dL (6-20); CREATININE 1.7 mg/dL (0.6-1.3); GFR - MDRD 39.0 (>89)
[2025-10-28 05:05] LABS: CARBON DIOXIDE - CO2 39.0 mmol/L (21-32)
--- NOTE | 2025-10-28 10:24 | PROVIDER PROGRESS NOTE ---
Subjective Prog Note Date Prog Note Date: 10/28/25 Subjective Subjective: Observed working with PT. oxygen requirement overnight, 3L bled into CPAP and now 3L oxymask. removed O2 as up walking wiht PT and sats above 88, but then desat down to 85-86 when I left the room. he was able to walk 10-15 feet with a walker, but required max A to stand with walker by myself and the PT. Patient does note that his scrotum feels much better. Since he is up walking, I will examine that later today. Current Medications Current Medications Current Medications: Current Medications Generic Name Dose Route Start Last Admin Trade Name Freq PRN Reason Stop Dose Admin Acetaminophen 650 mg 10/24/25 17:06 10/27/25 21:36 Acetaminophen 325 Mg Tablet PO 650 mg Q4HR PRN Administration Pain 1 to 4, or Fever Acetazolamide 250 mg 10/28/25 11:00 Acetazolamide 250 Mg Tablet PO DAILY SHERMAN Diclofenac Sodium 2 gm 10/26/25 07:11 10/27/25 21:35 Diclofenac Sodium 1% Gel 50 Gm Tube TOP 2 gm QID PRN Administration scrotal pain Furosemide 80 mg 10/27/25 06:00 10/28/25 07:04 Furosemide 40 Mg/4 Ml Vial IVP 80 mg BIDDIURETIC SHERMAN Administration Insulin Glargine-yfgn 10 unit 10/24/25 21:00 10/27/25 22:02 Insulin Glargine-Yfgn 300 Unit/3 Ml Pen SUBQ 10 unit QPM SHERMAN Administration Insulin Human Lispro 1 - 5 unit 10/24/25 17:06 10/28/25 08:21 Insulin Lispro 300 Unit/3 Ml Pen SUBQ Not Given 0800,1200,1700,2100 [facility] Protocol Magnesium Oxide 800 mg 10/27/25 08:00 10/28/25 08:21 Magnesium Oxide 400 Mg Tablet PO 800 mg DAILYWM SHERMAN Administration Nystatin 1 applic 10/24/25 21:00 10/28/25 08:21 Nystatin Powder 15 Gm TOP 1 applic BID SHERMAN Administration Ondansetron HCl 4 mg 10/24/25 17:06 Ondansetron Odt 4 Mg Tablet TL Q6HR PRN Nausea / Vomiting Oxycodone HCl 10 mg 10/26/25 07:12 10/28/25 08:24 Oxycodone 5 Mg Tablet PO 10 mg Q4HR PRN Administration Severe Pain (Level 7-10) Polyethylene Glycol 17 gm 10/27/25 12:00 10/28/25 08:20 Polyethylene Glycol 3350 17 Gm Packet PO 17 gm DAILY SHERMAN Administration Potassium Chloride 40 meq 10/25/25 11:00 10/28/25 08:20 Potassium Chloride 20 Meq Tablet PO 40 meq DAILYWM SHERMAN Administration Sodium Chloride 10 ml 10/24/25 17:06 10/26/25 05:32 Sodium Chloride Flush 0.9% 10 Ml Syringe IVP 10 ml PRN PRN Administration NEEDED PER PROVIDER ORDERS Sodium Chloride 10 ml 10/24/25 17:06 10/28/25 08:23 Sodium Chloride Flush 0.9% 10 Ml Syringe IVP 10 ml 0100,0900,1700 SHERMAN Administration Sodium Chloride 2 sprays 10/28/25 00:52 10/28/25 01:08 Sodium Chloride 0.65% Nasal [place] PATRICIA 1 spr Q4HR PRN Administration Nasal Congestion Warfarin Sodium 2.5 mg 10/28/25 14:00 Warfarin 2.5 Mg Tablet PO QDWARFARIN SHERMAN Zinc Oxide 113 gm 10/26/25 05:35 10/27/25 21:30 Cod Liver Oil/Zinc Oxide 113 Gm Tube TOP 1 applic PRN PRN Administration Skin Care Objective Vital Signs/Intake & Output Reviewed Vital Signs: Yes Vital Signs: Vital Signs x48h Temp Pulse Resp BP BP Pulse Ox O2 Flow Rate 10/28/25 08:00 36.8 C 71 12 127/58 L 86 L 10/28/25 05:46 36.5 C 70 18 128/61 96 3 10/28/25 02:45 3 Intake & Output: Intake & Output 10/25/25 10/26/25 10/27/25 10/28/25 23:59 23:59 23:59 23:59 Intake Total 1580 / 1580 1422 / 1422 1576 / 1576 250 / 250 Output Total 4550 / 4550 3300 / 3300 3875 / 3875 250 / 250 Balance -2970 / -2970 -1878 / -1878 -2299 / -2299 0 / 0 Weight (kg) 135.216 kg 135.216 kg Objective General Appearance: positive Alert and Mild distress (dyspnea on exertion) Eyes Bilateral: positive PERRL ENT: positive ENT inspection nml Neck: positive Nml inspection Respiratory: positive Chest non-tender and No respiratory distress (mild to moderate dyspnea); negative Wheezes or Rales Cardiovascular: positive Irregularly irregular and Systolic murmur Abdomen: positive No distention Back: positive Nml inspection Skin: positive Color nml, No rash and Other (lower extremities are volume contracted, wounds are dry. ) Extremities: positive No pedal edema Neurologic/Psychiatric: positive Oriented x3 and Other (gait, forwards leaning with kyphosis, shuffles slowly with a walker. ) Lab Results 10/28/25 04:28 10/28/25 04:28 Other Labs: Lab Results x24hrs 10/28/25 10/28/25 10/27/25 Range/Units 07:46 04:28 20:32 WBC 9.0 (4.8-10.8) x10^3/uL RBC 3.61 L (4.70-6.10) 10^6/uL Hgb 9.6 L (14.0-18.0) g/dL Hct 31.8 L (42.0-52.0) % MCV 88.1 (80.0-94.0) fL MCH 26.6 L (27.0-31.0) pg MCHC 30.2 L (32.0-36.0) g/dL RDW 19.5 H (12.0-15.0) % Plt Count 155 (130-450) 10^3/uL MPV 10.0 (7.4-11.4) fL Neut # (Auto) 6.8 H (1.5-6.6) 10^3/uL Lymph # (Auto) 1.1 L (1.5-3.5) 10^3/uL [place] # (Auto) 0.9 (0.0-1.0) 10^3/uL Eos # (Auto) 0.1 (0.0-0.7) 10^3/uL Baso # (Auto) 0.0 (0.0-0.1) 10^3/uL Absolute Nucleated RBC 0.00 x10^3/uL Nucleated RBC % 0.0 /100WBC Sodium 138 (135-145) mmol/L Potassium 3.6 (3.5-4.5) mmol/L Chloride 95 L (101-111) mmol/L Carbon Dioxide 39 H* (21-32) mmol/L Anion Gap 4.0 L (6-13) BUN 37 H (6-20) mg/dL Creatinine 1.7 H (0.6-1.3) mg/dL Estimated GFR (MDRD) 39 L (>89) Glucose 122 H (74-104) mg/dL POC Whole Bld Glucose 111 207 (70-100) mg/dL Calcium 8.2 L (8.5-10.3) mg/dL 10/27/25 10/27/25 Range/Units 16:41 11:01 WBC (4.8-10.8) x10^3/uL RBC (4.70-6.10) 10^6/uL Hgb (14.0-18.0) g/dL Hct (42.0-52.0) % MCV (80.0-94.0) fL MCH (27.0-31.0) pg MCHC (32.0-36.0) g/dL RDW (12.0-15.0) % Plt Count (130-450) 10^3/uL MPV (7.4-11.4) fL Neut # (Auto) (1.5-6.6) 10^3/uL Lymph # (Auto) (1.5-3.5) 10^3/uL [place] # (Auto) (0.0-1.0) 10^3/uL Eos # (Auto) (0.0-0.7) 10^3/uL Baso # (Auto) (0.0-0.1) 10^3/uL Absolute Nucleated RBC x10^3/uL Nucleated RBC % /100WBC Sodium (135-145) mmol/L Potassium (3.5-4.5) mmol/L Chloride (101-111) mmol/L Carbon Dioxide (21-32) mmol/L Anion Gap (6-13) BUN (6-20) mg/dL Creatinine (0.6-1.3) mg/dL Estimated GFR (MDRD) (>89) Glucose (74-104) mg/dL POC Whole Bld Glucose 172 198 (70-100) mg/dL Calcium (8.5-10.3) mg/dL Assessment/Plan Problem List (1) CHF exacerbation: Impression: He is negative 8.7 L for this admission. His diuresis is slowing down significantly. he has not shown any decline in his renal fxn. resolved hypokalemia, 3.6 today. I am planning to not give his second dose of IV furosemide today. I am starting him on spironolactone and bumex tomorrow AM. Magnesium also low, 1.5, he is getting Max oxide 400mg daily, increased to BID. As I am able to see cardiology notes in the past now, I can see that he has been on MagOx 400mg BID in the past. I have ordered repeat Mag level for the AM. He cannot dc to home until he is able to ambulate household distances. I was able to watch him work w PT today, and it is very clear that he needs SNF rehab. SW is working with him on this. Qualifiers: Heart failure type: unspecified Qualified Code(s): I50.9 - Heart failure, unspecified (2) Heart failure with preserved ejection fraction: Impression: right heart failure. I was able to obtain most recent cardiology note. has a history of COPD. Patient does not give a history of being seen by pulmonology, nor do I see any chronic pulmonary medications. Most recent cardiology note obtained from [facility], November 2024. This note refers to an echocardiogram in November 2024 with an ejection fraction of 60 to 65% consistent with his most recent echocardiogram done several days ago. However, what is remarkable is his severely increased PA systolic pressure. I think that this exacerbation and edema is a result of worsening right heart failure. 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 I am changing his diuretics significantly on discharge, and he is approaching medical stability now. I have been treating him with aggressive diuresis. he has done well, but overnight has developed an oxygen requirement. no fever, or leukocytosis. Chest XR to my read shows slightly increased vascularity as compared to before (radiology did not compare). there may be a new small left pleural effusion (slight blunting of the angle on the left). Patient has been slightly resistant to making a choice regarding SNF placement. I spoke with him and he said he just has not had time to look at the list. With patient's permission I called his ex- Brit. She relates to me that the most [place]. When I pushed the patient to talk about this in the room that was 1 thing that he said all as being obvious. His son will stop by this afternoon and review the list with him. I have relayed info to SW Also in my discussion with Brit she asked me to please give her a prognosis for what is happening with her ex-. I explained to her that his heart failure is severe and progressive. It is unlikely to improve and that he will continue to decline. I also related to her that it would be highly unlikely that he would survive an episode of cardiac arrest but that he has insisted on full CODE STATUS. While she does not agree with his decision she intimates to me that she hopes that he would not survive a cardiac arrest as she knows that his life following that would be pure misery. The patient seems to show little insight into the severity of his health conditions, but his loved ones seem to understand. (3) Supratherapeutic INR: Impression: Pharmacy is managing warfarin dosing. 10/25/25 10/26/25 10/27/25 04:43 04:59 05:00 INR 4.4 H 3.3 H 2.5 H (4) Acute on chronic renal insufficiency: Impression: renal function stable in the face of aggressive diuresis. continue to attempt euvolemia. I have ordered BMP for the AM. Laboratory Tests 07/31/25 10/21/25 10/24/25 07:26 16:20 12:40 Creatinine 1.3 1.4 H 1.7 H 10/25/25 10/26/25 10/27/25 04:43 04:59 05:00 Creatinine 1.6 H 1.5 H 1.6 H 10/28/25 04:28 Creatinine 1.7 H (5) Adrenal adenoma: Impression: Discussed with patient. he recalls that in the past he had seen endocrinology at [facility], then that provider stopped services. I was able to review endocrinology note from September 2017 at [facility]. And this is details that the patient has a 1.1 cm right adrenal nodule which is nonfunctioning and benign. He does not have hyperaldosteronism. He had an extensive workup in 2017 which was negative. The nodule was serially imaged in February and August 2017 and there was no change in its characteristics. The worsening of his heart failure is not related to primary hyperaldosteronism. (6) Type 2 diabetes mellitus: Impression: Most recent hemoglobin A1c was 3 months ago at 7.4% repeat this admit 7.8%. He is on insulin therapy at home. He takes Novolin 14 units in the a.m. and 9 units in the p.m. I will place him on glargine 10 units every afternoon with sliding scale insulin while he is here. He has done well and mine development engineer is recommending discharge on glargine. Blood sugar control has been appropriate. Hgb A1C does not indicate the need for escalation outpatient insulin tx. Laboratory Tests 10/27/25 10/27/25 10/28/25 16:41 20:32 07:46 POC Whole Bld Glucose 172 207 111 10/28/25 11:34 POC Whole Bld Glucose 159 He is on low SSI Qualifiers: Diabetes mellitus complication status: with other specified complication Diabetes mellitus nursing home insulin use: with petroleum terminal plant operator use Qualified Code(s): E11.69 - Type 2 diabetes mellitus with other specified complication; Z79.4 - superintendent container terminal (current) use of insulin (7) Pacemaker: Impression: Has a leadless Micra pacemaker in place. follows with Dr Reyes, cardiology at [facility]. no current issues. Echo done, indicative of pulmonary hypertension. Pacer placed 12/2022. I have requested most recent cardiology note. (8) S/p TAVR (transcatheter aortic valve replacement), bioprosthetic: Impression: no issues outstanding with this. states unremarkable followup with cardiology. no notes scanned into the chart. placed 12/2022. Echo shows no dysfunction of the valve. I have requested most recent cardiology note from [facility]. (9) Obstructive sleep apnea on CPAP: Impression: Complaint with CPAP (10) Elevated TSH: Impression: TSH 7.26 at last primary care visit. It was noted that the thyroid hormone was within normal limits. Plan was to recheck in 6 weeks. repeat is normal. 10/25/25 04:43 TSH 2.09 This patient's diagnosis and treatment plan was discussed this AM with attending physician as a part of multi disciplinary rounding meeting. I have spent 55 minutes in the care of this patient today. This includes time [id number], review and ordering of diagnostic imaging and laboratory studies. Monitoring the patient's signs symptoms, evaluation of medication effectiveness and patient's response to treatment.
--- NOTE | 2025-10-28 13:47 | XRAY Report ---
PROCEDURE: XR Chest 1V INDICATIONS: increasing oxygen requirements. TECHNIQUE: One view of the chest was acquired. COMPARISON: None. FINDINGS: Surgical changes and devices: None. Lungs and pleura: Mild diffuse increased prominence of the pulmonary vasculature. Small bilateral pleural effusions are not excluded. No pneumothorax. No consolidation. Mediastinum: Cardiomegaly. Normal contour otherwise. Bones and chest wall: No suspicious bony lesions. Overlying soft tissues appear unremarkable. IMPRESSION: Cardiomegaly and mild diffuse increased prominence of the pulmonary vasculature. Small bilateral pleural effusions not excluded. Reviewed by: Manuel Baker MD on 10/28/2025 1:44 PM PST Approved by: Manuel Baker MD on 10/28/2025 1:44 PM PST Station ID: [id number]
[2025-10-28] MEDS: WARFARIN 2.5 MG TABLET PO SCH (13:57)
[2025-10-29 05:05] LABS: HCT - HEMATOCRIT 31.6 % (42.0-52.0); HGB - HEMOGLOBIN 9.4 g/dL (14.0-18.0); MEAN PLATELET VOLUME 10.8 fL (7.4-11.4); NRBC ABSOLUTE COUNT (AUTO) 0.00 x10^3/uL; NUCLEATED RED BLOOD CELLS AUTO 0.0 /100WBC; PLT - PLATELET COUNT 143 10^3/uL (130-450); RED CELL DISTRIBUTION WIDTH 19.5 % (12.0-15.0)
[2025-10-29 05:10] LABS: INR 1.8 (0.8-1.2); PT - PROTHROMBIN TIME 20.0 secs (9.9-12.6)
[2025-10-29 06:01] LABS: BUN - BLOOD UREA NITROGEN 41.0 mg/dL (6-20); CARBON DIOXIDE - CO2 37.0 mmol/L (21-32); CREATININE 1.8 mg/dL (0.6-1.3); GFR - MDRD 37.0 (>89)
[2025-10-29] MEDS ORDERED: BUMETANIDE 1 MG TABLET PO SCH (09:00)
[2025-10-29] MEDS: MAGNESIUM HYDROXIDE 2,400 MG/30 ML UDC PO ONE (09:27)
[2025-10-29] MEDS: SPIRONOLACTONE 25 MG TABLET PO SCH (09:29)
[2025-10-29] MEDS: BUMETANIDE 1 MG TABLET PO SCH (09:29)
[2025-10-29] MEDS: SENNA 8.6 MG TABLET PO SCH (09:29)
--- NOTE | 2025-10-29 12:11 | PROVIDER PROGRESS NOTE ---
Subjective Prog Note Date Prog Note Date: 10/29/25 Subjective Subjective: feeling a little better. he is out of bed to the chair this AM. He is open to the idea of getting in the shower today. he has not had a shower since sometime in September. He would love to do this. Current Medications Current Medications Current Medications: Current Medications Generic Name Dose Route Start Last Admin Trade Name Freq PRN Reason Stop Dose Admin Acetaminophen 650 mg 10/24/25 17:06 10/27/25 21:36 Acetaminophen 325 Mg Tablet PO 650 mg Q4HR PRN Administration Pain 1 to 4, or Fever Acetazolamide 250 mg 10/28/25 11:00 10/29/25 09:29 Acetazolamide 250 Mg Tablet PO 250 mg DAILY SHERMAN Administration Bumetanide 2 mg 10/29/25 09:00 10/29/25 09:29 Bumetanide 1 Mg Tablet PO 2 mg DAILY SHERMAN Administration Diclofenac Sodium 2 gm 10/26/25 07:11 10/27/25 21:35 Diclofenac Sodium 1% Gel 50 Gm Tube TOP 2 gm QID PRN Administration scrotal pain Insulin Glargine-yfgn 10 unit 10/24/25 21:00 10/28/25 20:53 Insulin Glargine-Yfgn 300 Unit/3 Ml Pen SUBQ 10 unit QPM SHERMAN Administration Insulin Human Lispro 1 - 5 unit 10/24/25 17:06 10/29/25 09:07 Insulin Lispro 300 Unit/3 Ml Pen SUBQ Not Given 0800,1200,1700,2100 [facility] Protocol Magnesium Oxide 800 mg 10/27/25 08:00 10/29/25 09:28 Magnesium Oxide 400 Mg Tablet PO 800 mg DAILYWM SHERMAN Administration Nystatin 1 applic 10/24/25 21:00 10/29/25 09:30 Nystatin Powder 15 Gm TOP 1 applic BID SHERMAN Administration Ondansetron HCl 4 mg 10/24/25 17:06 Ondansetron Odt 4 Mg Tablet TL Q6HR PRN Nausea / Vomiting Oxycodone HCl 10 mg 10/26/25 07:12 10/28/25 21:02 Oxycodone 5 Mg Tablet PO 10 mg Q4HR PRN Administration Severe Pain (Level 7-10) Polyethylene Glycol 17 gm 10/27/25 12:00 10/29/25 09:27 Polyethylene Glycol 3350 17 Gm Packet PO 17 gm DAILY SHERMAN Administration Potassium Chloride 40 meq 10/25/25 11:00 10/29/25 09:28 Potassium Chloride 20 Meq Tablet PO 40 meq DAILYWM SHERMAN Administration Senna 8.6 - 17.2 mg 10/29/25 10:00 10/29/25 09:29 Senna 8.6 Mg Tablet PO 17.2 mg DAILY SHERMAN Administration Sodium Chloride 10 ml 10/24/25 17:06 10/26/25 05:32 Sodium Chloride Flush 0.9% 10 Ml Syringe IVP 10 ml PRN PRN Administration NEEDED PER PROVIDER ORDERS Sodium Chloride 10 ml 10/24/25 17:06 10/29/25 09:29 Sodium Chloride Flush 0.9% 10 Ml Syringe IVP 10 ml 0100,0900,1700 SHERMAN Administration Sodium Chloride 2 sprays 10/28/25 00:52 10/28/25 01:08 Sodium Chloride 0.65% Nasal [place] PATRICIA 1 spr Q4HR PRN Administration Nasal Congestion Spironolactone 25 mg 10/29/25 09:00 10/29/25 09:29 Spironolactone 25 Mg Tablet PO 25 mg DAILY SHERMAN Administration Warfarin Sodium 2.5 mg 10/28/25 14:00 10/28/25 13:57 Warfarin 2.5 Mg Tablet PO 2.5 mg QDWARFARIN SHERMAN Administration Zinc Oxide 113 gm 10/26/25 05:35 10/27/25 21:30 Cod Liver Oil/Zinc Oxide 113 Gm Tube TOP 1 applic PRN PRN Administration Skin Care Objective Vital Signs/Intake & Output Reviewed Vital Signs: Yes Vital Signs: Vital Signs x48h Temp Pulse Resp BP Pulse Ox O2 Flow Rate 10/29/25 07:53 37 C 72 18 144/57 H 96 2 10/29/25 07:25 2 Intake & Output: Intake & Output 10/26/25 10/27/25 10/28/25 10/29/25 23:59 23:59 23:59 23:59 Intake Total 1422 / 1422 1576 / 1576 1465 / 1465 250 / 250 Output Total 3300 / 3300 3875 / 3875 1395 / 1395 550 / 550 Balance -1878 / -1878 -2299 / -2299 70 / 70 -300 / -300 Weight (kg) 135.216 kg 135.216 kg 135.216 kg Objective General Appearance: positive No acute distress and Alert Eyes Bilateral: positive Normal inspection ENT: positive ENT inspection nml Neck: positive Nml inspection Respiratory: positive No respiratory distress and Other (diminished breath sounds. ); negative Wheezes, Rales or Rhonchi Cardiovascular: positive Irregularly irregular and Systolic murmur Abdomen: positive No distention and Other (scrotum appears normal. mild foreskin edema) Back: positive Nml inspection Skin: positive Color nml and Other (still with healing skin on scrotum) Extremities: positive No pedal edema and Other (lots of scaling skin, with new lack of edema) Neurologic/Psychiatric: positive Oriented x3 Lab Results 10/29/25 04:30 10/29/25 04:30 Other Labs: Lab Results x24hrs 10/29/25 10/29/25 10/29/25 Range/Units 11:27 07:38 04:30 WBC 9.3 (4.8-10.8) x10^3/uL RBC 3.53 L (4.70-6.10) 10^6/uL Hgb 9.4 L (14.0-18.0) g/dL Hct 31.6 L (42.0-52.0) % MCV 89.5 (80.0-94.0) fL MCH 26.6 L (27.0-31.0) pg MCHC 29.7 L (32.0-36.0) g/dL RDW 19.5 H (12.0-15.0) % Plt Count 143 (130-450) 10^3/uL MPV 10.8 (7.4-11.4) fL Neut # (Auto) 7.7 H (1.5-6.6) 10^3/uL Lymph # (Auto) 0.8 L (1.5-3.5) 10^3/uL [place] # (Auto) 0.7 (0.0-1.0) 10^3/uL Eos # (Auto) 0.1 (0.0-0.7) 10^3/uL Baso # (Auto) 0.0 (0.0-0.1) 10^3/uL Absolute Nucleated RBC 0.00 x10^3/uL Nucleated RBC % 0.0 /100WBC PT 20.0 H (9.9-12.6) secs INR 1.8 H (0.8-1.2) Sodium 138 (135-145) mmol/L Potassium 3.9 (3.5-4.5) mmol/L Chloride 94 L (101-111) mmol/L Carbon Dioxide 37 H (21-32) mmol/L Anion Gap 7.0 (6-13) BUN 41 H (6-20) mg/dL Creatinine 1.8 H (0.6-1.3) mg/dL Estimated GFR (MDRD) 37 L (>89) Glucose 133 H (74-104) mg/dL POC Whole Bld Glucose 181 129 (70-100) mg/dL Calcium 8.4 L (8.5-10.3) mg/dL Magnesium 1.7 (1.7-2.3) mg/dL 10/28/25 10/28/25 Range/Units 20:27 16:24 WBC (4.8-10.8) x10^3/uL RBC (4.70-6.10) 10^6/uL Hgb (14.0-18.0) g/dL Hct (42.0-52.0) % MCV (80.0-94.0) fL MCH (27.0-31.0) pg MCHC (32.0-36.0) g/dL RDW (12.0-15.0) % Plt Count (130-450) 10^3/uL MPV (7.4-11.4) fL Neut # (Auto) (1.5-6.6) 10^3/uL Lymph # (Auto) (1.5-3.5) 10^3/uL [place] # (Auto) (0.0-1.0) 10^3/uL Eos # (Auto) (0.0-0.7) 10^3/uL Baso # (Auto) (0.0-0.1) 10^3/uL Absolute Nucleated RBC x10^3/uL Nucleated RBC % /100WBC PT (9.9-12.6) secs INR (0.8-1.2) Sodium (135-145) mmol/L Potassium (3.5-4.5) mmol/L Chloride (101-111) mmol/L Carbon Dioxide (21-32) mmol/L Anion Gap (6-13) BUN (6-20) mg/dL Creatinine (0.6-1.3) mg/dL Estimated GFR (MDRD) (>89) Glucose (74-104) mg/dL POC Whole Bld Glucose 188 148 (70-100) mg/dL Calcium (8.5-10.3) mg/dL Magnesium (1.7-2.3) mg/dL Assessment/Plan Problem List (1) CHF exacerbation: Impression: He is negative 8.9 L for this admission. His diuresis continues to slow, not surprising given the changes made in the last 24 hours to meds. resolved hypokalemia, 3.9 today. changed today to spironolactone 25mg and bumex 2mg. Will need to check BMP in the AM to assess how these changes are affecting him. He is on K-Dur 40mEq daily. magnesium level is corrected after increasing Mag Oxide 400mg to BID. As I am able to see cardiology notes in the past now, I can see that he has been on MagOx 400mg BID in the past. He cannot dc to home until he is able to ambulate household distances. I was able to watch him work w PT, and it is very clear that he needs SNF rehab. He is accepted to [facility] and can go tomorrow. need one additional day to assess medication changes, and watch oxygenation status. Qualifiers: Heart failure type: unspecified Qualified Code(s): I50.9 - Heart failure, unspecified (2) Heart failure with preserved ejection fraction: Impression: right heart failure. I was able to obtain most recent cardiology note. has a history of COPD. Patient does not give a history of being seen by pulmonology, nor do I see any chronic pulmonary medications. Most recent cardiology note obtained from [facility], November 2024. This note refers to an echocardiogram in November 2024 with an ejection fraction of 60 to 65% consistent with his most recent echocardiogram done several days ago. However, what is remarkable is his severely increased PA systolic pressure. I think that this exacerbation and edema is a result of worsening right heart failure. 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 I am changing his diuretics significantly on discharge, and he should be medically clear for dc 10/30 I have been treating him with aggressive diuresis. he has done well, but on 10/28 has developed an oxygen requirement. no fever, or leukocytosis. Chest XR to my read shows slightly increased vascularity as compared to before (radiology did not compare). there may be a new small left pleural effusion (slight blunting of the angle on the left). I have sent respiratory panel. he is not symptomatic, but did have several ED visits prior to admit, and these exposures should not be overlooked. He can go to SNF tomorrow, assuming he is medically clear. I am recommending outpatient cardiology followup as soon as he is able. The patient seems to show little insight into the severity of his health conditions, but his loved ones seem to understand. (3) Supratherapeutic INR: Impression: Pharmacy is managing warfarin dosing. Laboratory Tests 10/24/25 10/25/25 10/26/25 12:40 04:43 04:59 INR 4.7 H* 4.4 H 3.3 H 10/27/25 10/29/25 05:00 04:30 INR 2.5 H 1.8 H He is getting 2.5mg daily. (4) Acute on chronic renal insufficiency: Impression: renal function stable in the face of aggressive diuresis. continue to attempt euvolemia. I have ordered BMP for the AM. Slight increase in Cr today to 1.8, from 1.7 and from 1.7 at admit. this may be a result of Diamox. Will give one more dose of this, and continue to monitor renal function. (5) Adrenal adenoma: Impression: Discussed with patient. he recalls that in the past he had seen endocrinology at [facility], then that provider stopped services. I was able to review endocrinology note from September 2017 at [facility]. This is details that the patient has a 1.1 cm right adrenal nodule which is nonfunctioning and benign. He does not have hyperaldosteronism. He had an extensive workup in 2017 which was negative. The nodule was serially imaged in February and August 2017 and there was no change in its characteristics. The worsening of his heart failure is not related to primary hyperaldosteronism. (6) Type 2 diabetes mellitus: Impression: Most recent hemoglobin A1c was 3 months ago at 7.4% repeat this admit 7.8%. He is on insulin therapy at home. He takes Novolin 14 units in the a.m. and 9 units in the p.m. I will place him on glargine 10 units every afternoon with sliding scale insulin while he is here. 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 Blood sugar control has been appropriate. Hgb A1C does not indicate the need for escalation outpatient insulin tx. Laboratory Tests 10/28/25 10/28/25 10/28/25 11:34 16:24 20:27 POC Whole Bld Glucose 159 148 188 10/29/25 10/29/25 07:38 11:27 POC Whole Bld Glucose 129 181 He is on low SSI- he has gotten 4 units of Lispro over the last 24 hours. 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 follows with Dr Reyes, cardiology at [facility]. no current issues. Echo done, indicative of pulmonary hypertension. Pacer placed 12/2022. \ (8) S/p TAVR (transcatheter aortic valve replacement), bioprosthetic: Impression: no issues outstanding with this. states unremarkable followup with cardiology. no notes scanned into the chart. placed 12/2022. Echo shows no dysfunction of the valve. (9) Obstructive sleep apnea on CPAP: Impression: Complaint with CPAP (10) Elevated TSH: Impression: TSH 7.26 at last primary care visit. It was noted that the thyroid hormone was within normal limits. Plan was to recheck in 6 weeks. repeat is normal. 10/25/25 04:43 TSH 2.09 This patient's diagnosis and treatment plan was discussed this AM with attending physician as a part of multi disciplinary rounding meeting. I have spent 48 minutes in the care of this patient today. This includes time [id number], review and ordering of diagnostic imaging and laboratory studies. Monitoring the patient's signs symptoms, evaluation of medication effectiveness and patient's response to treatment.
[2025-10-29 15:07] LABS: B. PARAPERTUSSIS- RESP PCR PAN NOT DETECTED; B. PERTUSSIS- RESP PCR PANEL NOT DETECTED; C. PNEUMONIAE- RESP PCR PANEL NOT DETECTED; CORONAVIRUS 229E-RESP PCR NOT DETECTED; CORONAVIRUS HKU1-RESP PCR NOT DETECTED; CORONAVIRUS NL63-RESP PCR NOT DETECTED; CORONAVIRUS OC43-RESP PCR NOT DETECTED; HUMAN METAPNEUMOVIRUS NOT DETECTED; INFLUENZA A- RESP PCR PANEL NOT DETECTED; INFLUENZA B - RESP PCR PANEL NOT DETECTED; M. PNEUMONIAE- RESP PCR PANEL NOT DETECTED; PARAINFLUENZA VIRUS 1 NOT DETECTED; PARAINFLUENZA VIRUS 2 NOT DETECTED; PARAINFLUENZA VIRUS 4 NOT DETECTED; RHINOVIRUS/ENTEROVIRUS NOT DETECTED; RSV- RESP PCR PANEL NOT DETECTED; SARS-CoV-2 -RESP PCR PANEL NOT DETECTED
[2025-10-30 06:24] LABS: INR 1.9 (0.8-1.2); PT - PROTHROMBIN TIME 21.1 secs (9.9-12.6)
[2025-10-30] MEDS: ENOXAPARIN 150 MG/ML SYRINGE SUBQ SCH (11:42)
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
[2025-10-30] MEDS: WARFARIN 5 MG TABLET PO ONE (15:17)
[2025-10-30] MEDS: INSULIN GLARGINE-YFGN 300 UNIT/3 ML PEN SUBQ SCH (20:25)
[2025-10-31 05:35] LABS: HCT - HEMATOCRIT 31.9 % (42.0-52.0); HGB - HEMOGLOBIN 9.5 g/dL (14.0-18.0); MEAN PLATELET VOLUME 11.2 fL (7.4-11.4); NRBC ABSOLUTE COUNT (AUTO) 0.00 x10^3/uL; NUCLEATED RED BLOOD CELLS AUTO 0.0 /100WBC; PLT - PLATELET COUNT 182 10^3/uL (130-450); RED CELL DISTRIBUTION WIDTH 19.4 % (12.0-15.0)
[2025-10-31 05:41] LABS: INR 2.1 (0.8-1.2); PT - PROTHROMBIN TIME 23.3 secs (9.9-12.6)
[2025-10-31 06:01] LABS: BUN - BLOOD UREA NITROGEN 57.0 mg/dL (6-20); CARBON DIOXIDE - CO2 33.0 mmol/L (21-32); CREATININE 1.7 mg/dL (0.6-1.3); GFR - MDRD 39.0 (>89)
--- NOTE | 2025-10-31 10:48 | Discharge Summary ---
Discharge Summary Admit Date: 10/24/25 Discharge Date: 10/31/25 Discharging Provider: Srini Weiss Primary Care Provider: Radha Mahmood Code Status: Attempt Resuscitation DIAGNOSES Discharge Diagnoses with Status of Each Condition: CHF exacerbation is resolved Decompensated heart failure with preserved ejection fractionback to baseline Supratherapeutic INRnow subtherapeutic, bridging on Lovenox Acute on chronic renal failureneeds outpatient labs Adrenal adenomachronic Type 2 diabeteschronic, changed insulin to daily Lantus Pacemakerchronic Status post TAVRchronic DERREK on CPAPchronic Elevated TSHchronic HPI History of Present Illness: 80-year-old male who presents the emergency department for the third time in 4 days with complaints related to edema and shortness of breath. He states to me that he has been compliant with all of his medications. However in reviewing the notes at the time of his initial emergency department visit he had cut his diuretics in half. It seems that from that time he has been a unable to resolve his edema which has been getting worse and worse to the point that he is unable to ambulate due to significant scrotal edema. He was seen in the emergency department on 10 21, given 40 mg of Lasix and discharged to home with instruction to resume his home diuretic dosing. Then returned again on the with similar complaints, given no diuretics at that time, just treated for his scrotal pain. Presents again today because he is unable to ambulate at home. At baseline he cannot lay flat because he gets short of breath. He states he has a hospital bed at home in which he sleeps. He notes increasing dyspnea on exertion for the last several days precipitating this visit. he has been having trouble meeting his needs at home. He is barely able to get to the kitchen to get a bite to eat. He is having trouble getting to the bathroom. He is not having any cough or fever. no chest pain. Normally he is a functional adult who meets all of his own care needs. He walks independently, and drives, in fact went on a road trip to [place] with his ex- several weeks ago and did well. He has a skiing teacher, Dr. Reyes at [facility] who saw him about 6 months ago and was planning annual follow-up. He states he had an echocardiogram 4 to 5 months ago he believes. He is on chronic warfarin therapy for atrial fibrillation. He states he is not on a DOAC due to cost. He has a pacemaker in place and is status post TAVR in 2022. He has been seeing the wound care center for about 6 weeks now for some lower extremity wounds which he states have been improving. HOSPITAL COURSE Hospital Course: Patient was admitted in the hospital and started on aggressive IV diuresis. Nursing reports that he is down 9 L from this admission. He has been weaned off to room air. We have changed his diuretic regimen to Bumex. He was also noted to have supratherapeutic INR, so his warfarin was held and then restarted. It still subtherapeutic today, so I am sending him with a Lovenox bridge and updated warfarin orders. His insulin has been changed to daily Lantus 15 units. He is discharging to SNF and will follow-up with PCP ALLERGIES Allergies Allergy/AdvReac Type Severity Reaction Status Date / Time metformin Allergy Severe GI upset Verified 10/24/25 12:22 codeine Allergy Intermediate Itching Verified 10/24/25 12:22 duloxetine (From Cymbalta) AdvReac Severe GI distress Verified 10/24/25 12:22 empagliflozin (From AdvReac Severe Decline in Verified 10/24/25 12:22 Jardiance) GFR lisinopril AdvReac Intermediate Cough Verified 10/24/25 12:22 tiotropium (From Spiriva AdvReac Intermediate [place] weird Verified 10/24/25 12:22 with HandiHaler) MEDICATIONS Ambulatory Orders Medication Instructions Recorded Confirmed atorvastatin 40 mg tablet 40 mg PO QPM 11/19/16 cholecalciferol (vitamin D3) 25 25 mcg PO BID 02/18/23 10/24/25 mcg (1,000 unit) capsule docusate sodium 100 mg capsule 100 mg PO DAILY 4 10/24/25 magnesium oxide 400 mg PO BID 10/04/2410/24 Permanent Disabled Placard 11/19/24 10/01/25 insulin syringe-needle U-100 1 mL 11/19/24 10/01/25 28 gauge x 1/2" nitroglycerin 0.4 mg sublingual 0.4 mg sublingual Q5M PRN chest 11/19/24 10/24/25 tablet pain #25 tabs hydralazine 25 mg tablet 25 mg PO TID 06/05/25 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-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,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,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 #1 ea 08/06/25 10/01/25 (FreeStyle Sheron 3 [place]) blood-glucose sensor (FreeStyle #6 ea 09/13/25 5 Sheron 3 Plus Sensor device) albuterol sulfate 90 mcg/actuation 1 - 2 inh inhalatio n Q4H PRN 10/04/25 10/24/25 aerosol inhaler (Ventolin HFA) shortness of breath or wheezing #8.5 grams oxycodone-acetaminophen 5 mg-325 1 tab PO Q8H PRN pain #10 tabs 10/22/25 10/24/25 mg tablet acetaminophen 325 mg tablet 650 mg (2 x 325 mg) PO Q4H R PRN 10/29/25 Pain 1 to 4, or Fever #60 tabs bumetanide 1 mg tablet 2 mg (2 x 1 mg) PO DAILY #60 tabs 10/29/25 nystatin 100,000 unit/gram topical 1 applic topical BI D #60 grams 10/29/25 powder potassium chloride 20 mEq 40 meq (2 x 20 mEq) PO DAILY WM #60 10/29/25 tablet,extended tabs release(part/cryst) (Klor-Con M) sodium chloride 0.65 % nasal spray 2 spray intranasal Q4HR PRN Nasal 10/29/25 aerosol (Deep Sea Nasal) Congestion #44 mL spironolactone 25 mg tablet 25 mg PO DAILY #30 tabs zinc oxide-cod liver oil 40 % 1 applic topical PRN PRN Skin Care 10/29/25 topical paste (Desitin) #136 grams carvedilol 12.5 mg tablet 37.5 mg (3 x 12.5 mg) PO BID 30 10/30/25 days #180 tabs enoxaparin 150 mg/mL subcutaneous 135 mg (0.9 mL) subc ut BID 5 days 10/31/25 syringe #9 mL insulin glargine-yfgn 100 unit/mL 15 unit (0.15 mL) lynn bcut QPM 30 10/31/25 (3 mL) subcutaneous pen days #4.5 mL warfarin 2.5 mg tablet See Rx Instructions .Route 1 01/01/25 .COMPLEX #30 tabs PHYSICAL EXAM AT DISCHARGE Vital Signs: Vital Signs x48h Temp Pulse Resp BP Pulse Ox 10/31/25 15:15 97.7 F 73 20 150/78 H 92 Physical Exam Other/Comments: General Appearance: positive No acute distress and Alert Eyes Bilateral: positive Normal inspection ENT: positive ENT inspection nml Neck: positive Nml inspection Respiratory: positive No respiratory distress and Other (diminished breath sounds. ); negative Wheezes, Rales or Rhonchi Cardiovascular: positive Irregularly irregular and Systolic murmur Abdomen: positive No distention Back: positive Nml inspection Skin: positive Color nml and Other (still with healing skin on scrotum) Extremities: positive No pedal edema and Other (lots of scaling skin) Neurologic/Psychiatric: positive Oriented x3 LABS 10/31/25 05:18 10/31/25 05:18 FOLLOW UP Follow Up: With PCP, cardiology TIME SPENT Time Spent in Discharge (Minutes): 39 Discharge Plan Discharge Patient Disposition: [address] [facility] DC/Xfer Condition: Stable Prescriptions: New acetaminophen 325 mg Tablet 650 mg PO Q4HR PRN (Reason: Pain 1 to 4, or Fever) Qty: 60 0RF bumetanide 1 mg Tablet 2 mg PO DAILY Qty: 60 0RF Desitin 40 % Paste 1 applic topical PRN PRN (Reason: Skin Care) Qty: 136 0RF nystatin 100,000 unit/gram Powder 1 applic topical BID Qty: 60 0RF potassium chloride [Klor-Con M20] 20 mEq Tablet,Er Particles/Crystals 40 meq PO DAILYWM Qty: 60 0RF [place] Nasal 0.65 % Aerosol,[place] 2 spray intranasal Q4HR PRN (Reason: Nasal Congestion) Qty: 44 0RF spironolactone 25 mg Tablet 25 mg PO DAILY Qty: 30 0RF carvedilol 12.5 mg Tablet 37.5 mg PO BID 30 Days Qty: 180 0RF enoxaparin 150 mg/mL Syringe 135 mg subcut BID 5 Days Qty: 9 0RF insulin glargine-yfgn 100 unit/mL (3 mL) Insulin Pen 15 unit subcut QPM 30 Days Qty: 4.5 0RF warfarin 2.5 mg tablet See Rx Instructions .ROUTE .COMPLEX Qty: 30 2RF Rx Instructions: Patient is to take 2.5 mg on Tuesday, Tuesday, Tuesday, , Tuesday 5 mg on Mondays and Fridays Continued (DME) FreeStyle Sheron 3 Plus Sensor Device See Rx Instructions .Route Qty: 6 3RF Rx Instructions: change and reapply a new sensor every 15 days. Monitor glucose level at least 4x day, before meals, bed, and more frequently based on symptoms. atorvastatin 40 MG tablet 40 mg PO QPM cholecalciferol (vitamin D3) 25 MCG capsule 25 mcg PO BID docusate sodium 100 mg capsule 100 mg PO DAILY magnesium oxide 400 mg magnesium capsule 400 mg PO BID albuterol sulfate [Ventolin HFA] 90 mcg/actuation HFA aerosol inhaler 1 - 2 inh inhalation Q4H PRN (Reason: shortness of breath or wheezing) Qty: 8.5 0RF oxycodone-acetaminophen 5-325 mg tablet 1 tab PO Q8H PRN (Reason: pain) Qty: 10 0RF hydralazine 25 mg tablet 25 mg PO TID Patient Comments: TAKE 1 TABLET BY MOUTH THREE TIMES DAILY (DME) Permanent Disabled Placard Misc See Rx Instructions .Route Rx Instructions: As directed (DME) insulin syringe-needle U-100 1 mL 28 gauge x 1/2" syringe See Rx Instructions .Route Rx Instructions: As directed nitroglycerin 0.4 mg tablet, sublingual 0.4 mg sublingual Q5M PRN (Reason: chest pain) Qty: 25 2RF Rx Instructions: do not exceed 3 doses per episode (DME) FreeStyle Sheron 3 [place] Misc See Rx Instructions .Route Qty: 1 0RF Rx Instructions: As directed Discontinued torsemide 20 mg tablet 40 mg PO DAILY warfarin 5 mg tablet 2.5 - 5 mg PO DAILY Protocol: Dose Management Condition: Tuesday Dose/Route: 2.5 mg Instruction: 0.5 x 5 mg tablets Condition: Tuesday Dose/Route: 5 mg Instruction: 1 x 5 mg tablet Condition: Tuesday Dose/Route: 2.5 mg Instruction: 0.5 x 5 mg tablets Condition: Tuesday Dose/Route: 5 mg Instruction: 1 x 5 mg tablet Condition: Dose/Route: 2.5 mg Instruction: 0.5 x 5 mg tablets Condition: Tuesday Dose/Route: 5 mg Instruction: 1 x 5 mg tablet Condition: Tuesday Dose/Route: 2.5 mg Instruction: 0.5 x 5 mg tablets Protocol Text: Adjustment Start Date: Tuesday10/22/25 INR Value: 3.0 INR Date: 10/21/25 Recheck Date: 11/05/25 Rx Instructions: as directed based on INR aspirin [Adult Low Dose Aspirin] 81 mg tablet,delayed release (DR/EC) 81 mg PO DAILY acetaminophen 325 mg tablet 325 mg PO Q4H PRN (Reason: fever or pain) Humulin N NPH U-100 Insulin 100 unit/mL suspension See Rx Instructions subcut BID Rx Instructions: 14 units AM + 9 units PM subcutaneously twice a day carvedilol 25 mg tablet See Rx Instructions PO Q12H Qty: 60 2RF Rx Instructions: take 1.5 tablets orally every 12 hours; must administer with a meal/food Activity Restrictions: Activity as Tolerated Diet: Cardiac Health Concerns: Diagnosis:Congestive heart failure exacerbation with preserved ejection fraction (60-65%) Discharge Destination:senior living facility Medication Changes During Hospitalization: The following medications were changed during your hospital stay: * Diuretic change:Torsemide was discontinued and replaced withbumetanideto help remove excess fluid from your body * Heart medication increase:Carvediloldose was increased to better control your heart rate and blood pressure * New medications started: * Spironolactone(a different type of diuretic that also helps protect your heart) * Insulin glargine(long-acting insulin taken at bedtime to control blood sugar) Daily Self-Care Monitoring: The nursing staff should help you with the following daily tasks: * Weigh yourself every morningbefore breakfast and after using the bathroom. Call your doctor if you gain more than 2-3 pounds in one day or 5 pounds in one week * Monitor your blood pressure and heart ratedaily * Watch for worsening symptoms:increased shortness of breath, swelling in legs or ankles, difficulty lying flat, or decreased ability to do your usual activities Diet and Fluid Restrictions: * Follow alow-sodium diet(less than 2,000 mg of sodium per day) * Limit fluids as directed by your healthcare team * Avoid adding salt to your food Activity Level: * Gradually increase your activity as tolerated * Rest when you feel tired or short of breath * Avoid heavy lifting or strenuous activities until cleared by your doctor Important Follow-Up Care: Early follow-up is criticalto prevent readmission and optimize your medications. You should have: * Follow-up appointment within 7 daysof discharge with your primary care provider or skiing teacher * Laboratory monitoringwill be needed to check: * Kidney function and electrolytes (especially potassium) due to the new spironolactone and bumetanide * International normalized ratio (INR)- close monitoring is required as you are on blood thinners * Blood sugar levels due to the new insulin Medication Optimization Plan: Your healthcare team will continue to adjust your heart failure medications over the coming weeks to reach the best doses for you. This is a normal part of heart failure care and may include further changes to your carvedilol and spironolactone doses. Warning Signs - When to Seek Medical Attention: Contact your doctor or call 911 if you experience: * Sudden or severe shortness of breath * Chest pain or pressure * Rapid weight gain (more than 2-3 pounds in one day) * Increased swelling in your legs, ankles, or abdomen * Dizziness, lightheadedness, or fainting * Confusion or difficulty thinking clearly * Unusual bleeding or bruising (related to blood thinner) Questions or Concerns: The snf facility staff should contact your healthcare provider if there are any questions about your medications, symptoms, or care plan. Clear communication between the facility and your outpatient providers is essential during this transition period Print Language: Occitan Patient Instructions: Warfarin Stand Alone Forms: SNF Discharge Follow-up Care: Radha Mahmood ARNP [Primary Care Provider, Family Practice] Report called to and time (if no answer, doc. time of each call attempted): A ttempted call at 1525, sent to [facility] Vitals documented within 30 minutes of discharge?: Yes
[2025-10-31 15:29] VITALS: BP 150/78; TEMP 97.7; O2SAT 92
[2025-10-31] MEDS: WARFARIN 2.5 MG TABLET PO SCH (15:30)
[2025-11-01] MEDS ORDERED: WARFARIN 5 MG TABLET PO SCH (14:00)
== END 2025-10-31 15:29 | DRG 292 ==
LOC: MS2 11:30 → ED 11:30 → MS2 17:14
PROVIDERS: ADMIT Physician Assistant Medical; ATTEND Physician Assistant Medical
DX: Z68.41 Body mass index [BMI] 40.0-44.9, adult; R06.09 Other forms of dyspnea; Z95.2 Presence of prosthetic heart valve; E26.9 Hyperaldosteronism, unspecified; E11.22 Type 2 diabetes mellitus with diabetic chronic kidney disease; R94.6 Abnormal results of thyroid function studies; N17.9 Acute kidney failure, unspecified; Z79.01 Long term (current) use of anticoagulants; R63.5 Abnormal weight gain; G47.33 Obstructive sleep apnea (adult) (pediatric); I48.20 Chronic atrial fibrillation, unspecified; I44.7 Left bundle-branch block, unspecified; Z87.891 Personal history of nicotine dependence; Z99.3 Dependence on wheelchair; I50.33 Acute on chronic diastolic (congestive) heart failure; R79.1 Abnormal coagulation profile; E87.6 Hypokalemia; D64.9 Anemia, unspecified; N18.9 Chronic kidney disease, unspecified; Z79.4 Long term (current) use of insulin; Z95.0 Presence of cardiac pacemaker; E27.9 Disorder of adrenal gland, unspecified; I50.9 Heart failure, unspecified; D35.00 Benign neoplasm of unspecified adrenal gland; K42.9 Umbilical hernia without obstruction or gangrene; N50.89 Other specified disorders of the male genital organs